=== PATIENT | female | born 1985 | race American Indian/Alaskan Native ===

== ENCOUNTER 2016-09-29 07:23 | Outpatient (CLI) | payer MEDICARE | END 2016-09-29 07:24 | disposition home or self-care (01) | DX: R30.0 Dysuria (principal) ==

== ENCOUNTER 2016-10-18 08:00 | Outpatient (CLI) | payer MEDICARE | END 2016-10-18 08:01 | disposition home or self-care (01) | DX: K21.9 Gastro-esophageal reflux disease without esophagitis (principal) ==

== ENCOUNTER 2016-11-23 10:27 | Outpatient (CLI) | payer MEDICARE | END 2016-11-23 10:28 | disposition home or self-care (01) | DX: Z11.3 Encounter for screening for infections with a predominantly sexual mode of transmission (principal) | CPT/HCPCS: 36415; 86780; 86803; 87491; 87591; G0475 ==

== ENCOUNTER 2017-02-15 13:15 | Outpatient (CLI) | payer MEDICARE | END 2017-02-15 13:16 | disposition home or self-care (01) | LOC: LAB.R 13:15 | PROVIDERS: ATTEND Physician Assistant | DX: N39.0 Urinary tract infection, site not specified (principal) | CPT/HCPCS: 87491; 87591 ==

== ENCOUNTER 2017-02-21 08:00 | Outpatient (CLI) | payer MEDICARE | END 2017-02-21 08:01 | disposition home or self-care (01) | LOC: LAB.R 08:00 | PROVIDERS: ATTEND Physician Assistant | DX: Z11.3 Encounter for screening for infections with a predominantly sexual mode of transmission (principal) | CPT/HCPCS: 87491; 87591 ==

== ENCOUNTER 2017-05-30 13:51 | Outpatient (CLI) | payer MEDICARE ==
[2017-05-30 19:08] LABS: BASOPHILS # (AUTO) 0.1 10^3/uL (0.0-0.1); BASOPHILS % (AUTO) 0.6 %; EOSINOPHILS # (AUTO) 0.1 10^3/uL (0.0-0.7); EOSINOPHILS % (AUTO) 0.7 %; HCT - HEMATOCRIT 42.6 % (37.0-47.0); HGB - HEMOGLOBIN 14.1 g/dL (12.0-16.0); LYMPHOCYTES % (AUTO) 22.6 %; MEAN CORPUSCULAR HEMOGLOBIN 29.2 pg (27.0-31.0); MEAN CORPUSCULAR HGB CONC 33.1 g/dL (32.0-36.0); MEAN CORPUSCULAR VOLUME 88.2 fL (81.0-99.0); MEAN PLATELET VOLUME 8.9 fL (7.9-10.8); MONOCYTES # (AUTO) 0.6 10^3/uL (0.0-1.0); MONOCYTES % (AUTO) 6.4 %; NEUTROPHILS # (AUTO) 6.2 10^3/uL (1.5-6.6); NEUTROPHILS % (AUTO) 69.7 %; RED BLOOD COUNT 4.84 10^6/uL (4.20-5.40); RED CELL DISTRIBUTION WIDTH 13.3 % (12.0-15.0)
[2017-05-30 19:18] LABS: ALBUMIN/GLOBULIN RATIO 1.6 (1.0-2.2); BILIRUBIN,TOTAL 0.7 mg/dL (0.2-1.0); BUN - BLOOD UREA NITROGEN 10 mg/dL (6-20); CALCIUM 9.2 mg/dL (8.5-10.3); CARBON DIOXIDE - CO2 28 mmol/L (21-32); CHLORIDE 101 mmol/L (101-111); CREATININE 0.5 mg/dL (0.4-1.0); GFR - MDRD 142 (>89); GLUCOSE 88 mg/dL (70-100); POTASSIUM 3.6 mmol/L (3.5-5.0); SODIUM 138 mmol/L (135-145); TOTAL PROTEIN 7.8 g/dL (6.7-8.2)
[2017-05-30 19:36] LABS: THYROID STIMULATING HORMONE 0.14 uIU/mL (0.34-5.60)
== END 2017-05-30 13:52 | disposition home or self-care (01) ==
LOC: LAB.N 13:51
PROVIDERS: ATTEND Nurse Practitioner Gerontology
DX: N91.2 Amenorrhea, unspecified (principal); L65.9 Nonscarring hair loss, unspecified
CPT/HCPCS: 36415; 80053; 84439; 84443; 85025

== ENCOUNTER 2017-07-11 10:35 | Outpatient (CLI) | payer MEDICARE | END 2017-07-11 10:36 | disposition home or self-care (01) | LOC: LAB.N 10:35 | PROVIDERS: ATTEND Nurse Practitioner Gerontology | DX: R94.6 Abnormal results of thyroid function studies (principal) | CPT/HCPCS: 36415; 84443 ==

== ENCOUNTER 2018-05-03 14:58 | Emergency (ER) | payer MEDICARE ==
[2018-05-03 15:13] VITALS: BP 137/79
[2018-05-03 15:27] LABS: BILIRUBIN,URINE NEGATIVE (NEGATIVE); GLUCOSE, URINE (UA) NEGATIVE (NEGATIVE); KETONES,URINE (UA) NEGATIVE (NEGATIVE); LEUKOCYTE ESTERASE, URINE MODERATE (NEGATIVE); NITRITE,URINE NEGATIVE (NEGATIVE); OCCULT BLOOD,URINE LARGE (NEGATIVE); PROTEIN,URINE NEGATIVE (NEGATIVE); UROBILINOGEN,URINE 0.2 (NORMAL) E.U./dL (NORMAL)
[2018-05-03 15:43] LABS: CLARITY,URINE HAZY (CLEAR); HCG UR QUAL NEGATIVE
[2018-05-03 15:44] LABS: BACTERIA,URINE Few /HPF (None Seen); SQUAMOUS EPITHELIAL CELL,UR FEW Squamous (<= Few)
--- NOTE | 2018-05-03 15:50 | ED Physician Documentation ---
PD HPI FEMALE - Stated complaint Stated Complaint: FEMALE - Chief complaint Chief Complaint: UTI - History obtained from History obtained from: Patient - History of Present Illness Timing - onset: How many days ago (3) Timing - duration: Days (3) Timing - details: Gradual onset Pain level max: 3 Pain level max: 3 Associated symptoms: Dysuria, Urinary frequency. No: Fever, Chest/shoulder pain, Abdominal pain, Back pain, Pelvic pain, Vaginal pain, Vaginal bleeding, Vaginal discharge Similar symptoms before: Diagnosis (UTI, states has frequent UTI's) Recently seen: Not recently seen Review of Systems Constitutional: denies: Fever, Chills Respiratory: denies: Cough GI: denies: Vomiting, Diarrhea : reports: Dysuria, Frequency, Hesitancy. denies: Now EGA PD PAST MEDICAL HISTORY - Past Medical History Past Medical History: No - Present Medications Home Medications: Ambulatory Orders Medication Instructions Recorded Confirmed Nitrofurantoin Monohyd/M-Cryst 100 mg PO BID #10 capsule 05/03/18 [Macrobid 100 mg Capsule] Phenazopyridine HCl [Pyridium] 200 mg PO TID PRN #6 tablet 05/03/18 - Allergies Allergies/Adverse Reactions: Allergies Allergy/AdvReac Type Severity Reaction Status Date / Time No Known Drug Allergies Allergy Verified 05/03/18 15:13 - Living Situation Living Situation: reports: With family Living Arrangement: reports: At home - Social History Does the pt have substance abuse?: No - Family History Family history: reports: Non contributory PD ED PE NORMAL - Vitals Vital signs reviewed: Yes - General General: Alert and oriented X 3, No acute distress - HEENT HEENT: Moist mucous membranes - Neck Neck: Supple, no meningeal sign - Cardiac Cardiac: RRR - Respiratory Respiratory: No respiratory distress, Clear bilaterally - Abdomen Abdomen: Soft, Non tender, Non distended - Female Female : Pt declined - Back Back: No CVA TTP, No spinal TTP - Derm Derm: Warm and dry - Neuro Neuro: Alert and oriented X 3 Results - Vitals Vitals: Vital Signs - 24 hr 05/03/18 15:10 Temperature 36.3 C L Heart Rate 84 Respiratory 18 Rate Blood Pressure 137/79 H O2 Saturation 98 Oxygen O2 Source Room air - Labs Labs: Laboratory Tests 05/03/18 15:15 Urine Color YELLOW Urine Clarity HAZY Urine pH 6.0 Ur Specific [place] <=1.005 Urine Protein NEGATIVE Urine Glucose (UA) NEGATIVE Urine Ketones NEGATIVE Urine Occult Blood LARGE H Urine Nitrite NEGATIVE Urine Bilirubin NEGATIVE Urine Urobilinogen 0.2 (NORMAL) Ur Leukocyte Esterase MODERATE H Urine RBC 11-25 H Urine WBC >25 H Ur Squamous Epith Cells FEW Squamous Urine Bacteria Few Ur Microscopic Review INDICATED Urine Culture Comments INDICATED Urine HCG, Qual NEGATIVE PD MEDICAL DECISION MAKING - ED course Complexity details: reviewed results, considered differential, d/w patient ED course: Patient is a 32-year-old female with what appears to be a UTI. Will place on Macrobid and Pyridium. She is well-appearing, nontoxic. Afebrile. She has been in a monogamous relationship for the past 3 years and was a week ago. We will have her follow-up with her doctor for further care. No vaginal bleeding, discharge or itching. Patient counseled regarding signs and symptoms for which I believe and urgent re-evaluation would be necessary. Patient with good understanding of and agreement to plan and is comfortable going home at this time This document was made in part using voice recognition software. While efforts are made to proofread this document, sound alike and grammatical errors may occur. - Sepsis Event Vital Signs: Vital Signs - 24 hr 05/03/18 15:10 Temperature 36.3 C L Heart Rate 84 Respiratory 18 Rate Blood Pressure 137/79 H O2 Saturation 98 Oxygen O2 Source Room air Departure - Departure Disposition: 01 Home, Self Care Clinical Impression: Urinary tract infection Qualifiers: Urinary tract infection type: acute cystitis Hematuria presence: without hematuria Qualified Code(s): N30.00 - Acute cystitis without hematuria Condition: Good Instructions: ED UTI Cystitis Female Follow-Up: Jazmine Slater ARNP [Primary Care Provider] - As Needed [facility] [Provider Group] Prescriptions: Nitrofurantoin Monohyd/M-Cryst [Macrobid 100 mg Capsule] 100 mg PO BID #10 capsule Phenazopyridine HCl [Pyridium] 200 mg PO TID PRN #6 tablet PRN Reason: dysuria Comments: Take all medications until gone. Return if you worsen. Follow-up with your doctor as needed
[2018-05-03] MEDS ORDERED: PHENAZOPYRIDINE 100 MG TABLET PO STA (16:02)
[2018-05-03] MEDS ORDERED: NITROFURANTOIN MACRO 100 MG CAPSULE PO STA (16:02)
== END 2018-05-03 16:20 | disposition home or self-care (01) ==
LOC: ED 14:58
DX: N30.00 Acute cystitis without hematuria (principal)
CPT/HCPCS: 81001; 81025; 87077; 87086; 87181; 99282; 99283; A9270; 81003

== ENCOUNTER 2018-08-16 08:34 | Emergency (ER) | payer MEDICARE ==
[2018-08-16 08:42] VITALS: BP 116/86
[2018-08-16 09:14] LABS: BILIRUBIN,URINE NEGATIVE (NEGATIVE); GLUCOSE, URINE (UA) NEGATIVE (NEGATIVE); KETONES,URINE (UA) NEGATIVE (NEGATIVE); LEUKOCYTE ESTERASE, URINE SMALL (NEGATIVE); NITRITE,URINE NEGATIVE (NEGATIVE); OCCULT BLOOD,URINE LARGE (NEGATIVE); PH,URINE 6.5 PH (5.0-7.5); PROTEIN,URINE NEGATIVE (NEGATIVE); UROBILINOGEN,URINE 0.2 (NORMAL) E.U./dL (NORMAL)
[2018-08-16 09:16] LABS: CLARITY,URINE HAZY (CLEAR)
[2018-08-16 09:17] LABS: HCG UR QUAL NEGATIVE
[2018-08-16 09:22] LABS: BACTERIA,URINE Few /HPF (None Seen); RBC,URINE TNTC /HPF (0-5); SQUAMOUS EPITHELIAL CELL,UR FEW Squamous (<= Few); WBC CLUMPS,URINE PRESENT
[2018-08-16] MEDS ORDERED: cephALEXin 250 MG CAPSULE PO STA (09:25)
[2018-08-16] MEDS ORDERED: PHENAZOPYRIDINE 100 MG TABLET PO STA (09:26)
--- NOTE | 2018-08-16 09:28 | ED Physician Documentation ---
PD HPI FEMALE - Stated complaint Stated Complaint: FEMALE - Chief complaint Chief Complaint: UTI - History obtained from History obtained from: Patient - History of Present Illness Timing - onset: Today Timing - details: Abrupt onset Severity Comments: moderate Associated symptoms: Dysuria, Urinary frequency. No: Fever, Chest/shoulder pain, Abdominal pain, Pelvic pain, Vaginal pain, Vaginal bleeding, Vaginal discharge, Genital sore/lesion, Hematuria Contributing factors: No: Similar symptoms before: No diagnosis Recently seen: Not recently seen Review of Systems Constitutional: denies: Fever, Chills Eyes: denies: Discharge Ears: denies: Ear pain Cardiac: denies: Chest pain / pressure Respiratory: denies: Cough GI: denies: Abdominal Pain : reports: Dysuria Neurologic: denies: Head injury PD PAST MEDICAL HISTORY - Past Surgical History Past Surgical History: No - Present Medications Home Medications: Ambulatory Orders Medication Instructions Recorded Confirmed Cephalexin [Keflex] 500 mg PO BID #10 capsule 08/16/18 - Allergies Allergies/Adverse Reactions: Allergies Allergy/AdvReac Type Severity Reaction Status Date / Time No Known Drug Allergies Allergy Verified 08/16/18 08:42 - Social History Does the pt smoke?: No Smoking Status: Never smoker Does the pt drink ETOH?: No Does the pt have substance abuse?: No PD ED PE NORMAL - General General: Alert and oriented X 3, No acute distress - HEENT HEENT: Atraumatic, PERRL, EOMI, Ears normal - Cardiac Cardiac: RRR, Strong equal pulses - Respiratory Respiratory: No respiratory distress - Abdomen Abdomen: Soft, Non tender, Non distended - Derm Derm: Normal color - Extremities Extremities: No deformity - Neuro Neuro: Alert and oriented X 3, Normal speech - Psych Psych: Normal affect Results - Vitals Vitals: Vital Signs - 24 hr 08/16/18 08:41 Temperature 36.2 C L Heart Rate 82 Respiratory 20 Rate Blood Pressure 116/86 H O2 Saturation 99 Oxygen O2 Source Room air - Labs Labs: Laboratory Tests 08/16/18 08:50 Urine Color LT RED Urine Clarity HAZY Urine pH 6.5 Ur Specific [place] 1.010 Urine Protein NEGATIVE Urine Glucose (UA) NEGATIVE Urine Ketones NEGATIVE Urine Occult Blood LARGE H Urine Nitrite NEGATIVE Urine Bilirubin NEGATIVE Urine Urobilinogen 0.2 (NORMAL) Ur Leukocyte Esterase SMALL H Urine RBC TNTC H Urine WBC >25 H Urine WBC Clumps PRESENT Ur Squamous Epith Cells FEW Squamous Urine Bacteria Few Ur Microscopic Review INDICATED Urine Culture Comments INDICATED Urine HCG, Qual NEGATIVE PD MEDICAL DECISION MAKING - ED course ED course: The patient appears to have a simple cystitis and appears appropriate for discharge and ongoing outpatient management. I discussed with the patient the findings and plan she understands and agrees. The patient will return to the emergency department for any worsening or any concerns Departure - Departure Disposition: 01 Home, Self Care Clinical Impression: Cystitis Instructions: ED UTI Cystitis Female Follow-Up: Jazmine Slater ARNP [Primary Care Provider] - Within 1 week Prescriptions: Cephalexin [Keflex] 500 mg PO BID #10 capsule Comments: Please return for any worsening or any concerns
== END 2018-08-16 09:40 | disposition home or self-care (01) ==
LOC: ED 08:34
DX: N30.90 Cystitis, unspecified without hematuria (principal)
CPT/HCPCS: 81001; 81025; 87086; 99283; A9270; 81003

== ENCOUNTER 2018-08-26 02:23 | Emergency (ER) | payer MEDICARE ==
--- NOTE | 2018-08-26 02:51 | ED Physician Documentation ---
PD HPI FEMALE - Stated complaint Stated Complaint: CYSTITIS - Chief complaint Chief Complaint: Abd Pain - History obtained from History obtained from: Patient - History of Present Illness Timing - onset: How many weeks ago (1) Timing - duration: Weeks (1) Pain level max: 5 Pain level max: 5 Associated symptoms: Vaginal pain, Vaginal discharge, Dysuria. No: Fever, Chest/shoulder pain, Abdominal pain, Back pain, Urinary frequency, Hematuria Contributing factors: Sexually active. No: , Exposed to STD Similar symptoms before: Diagnosis (UTI) Recently seen: Emergency Dept - Additional information Additional information: Patient seen here recently and diagnosed with a UTI, states she does not feel like she is improved. Was placed on Keflex. She is with no change in sexual partners. She states that she has had milky discharge from her vagina. Review of Systems Constitutional: denies: Fever Nose: denies: Rhinorrhea / runny nose, Congestion Cardiac: denies: Chest pain / pressure Respiratory: denies: Cough GI: denies: Abdominal Pain, Nausea, Vomiting, Diarrhea : denies: Dysuria, Frequency, Hesitancy Skin: denies: Rash Musculoskeletal: denies: Neck pain, Back pain Neurologic: denies: Focal weakness, Numbness, Headache PD PAST MEDICAL HISTORY - Past Medical History Past Medical History: No - Past Surgical History Past Surgical History: No - Present Medications Home Medications: Ambulatory Orders Medication Instructions Recorded Confirmed Cephalexin [Keflex] 500 mg PO BID #10 capsule 08/16/18 - Allergies Allergies/Adverse Reactions: Allergies Allergy/AdvReac Type Severity Reaction Status Date / Time No Known Drug Allergies Allergy Verified 08/26/18 02:31 - Living Situation Living Situation: reports: With family Living Arrangement: reports: At home - Social History Does the pt smoke?: No Smoking Status: Never smoker Does the pt drink ETOH?: No Does the pt have substance abuse?: No PD ED PE NORMAL - Vitals Vital signs reviewed: Yes - General General: Alert and oriented X 3, No acute distress - HEENT HEENT: Moist mucous membranes - Neck Neck: Supple, no meningeal sign - Cardiac Cardiac: RRR - Respiratory Respiratory: No respiratory distress, Clear bilaterally - Abdomen Abdomen: Soft, Non tender, Non distended - Female Female : Other (clear discharge from the cervix. mild CMT. ) - Back Back: No spinal TTP - Derm Derm: Warm and dry - Neuro Neuro: Alert and oriented X 3 Results - Vitals Vitals: Vital Signs - 24 hr 08/26/18 08/26/18 02:26 04:23 Temperature 36.3 C L 36.2 C L Heart Rate 80 76 Respiratory 18 14 Rate Blood Pressure 127/77 105/74 O2 Saturation 100 100 Oxygen O2 Source Room air - Labs Labs: Microbiology 08/26/18 02:57 Wet Prep - Final Genital - Cervix 08/26/18 02:57 ELIANE Preparation - Final Fluid - Cervix Laboratory Tests 08/26/18 02:48 Urine Color YELLOW Urine Clarity CLEAR Urine pH 6.0 Ur Specific [place] <=1.005 Urine Protein NEGATIVE Urine Glucose (UA) NEGATIVE Urine Ketones NEGATIVE Urine Occult Blood TRACE-INTA Urine Nitrite NEGATIVE Urine Bilirubin NEGATIVE Urine Urobilinogen 0.2 (NORMAL) Ur Leukocyte Esterase NEGATIVE Ur Microscopic Review NOT INDICATED Urine Culture Comments NOT INDICATED Urine HCG, Qual NEGATIVE PD MEDICAL DECISION MAKING - ED course Complexity details: reviewed old records, reviewed results, re-evaluated patient, considered differential, d/w patient, d/w family ED course: No acute findings on testing of the urine or wet mount or ELIANE prep. Gonorrhea and Chlamydia testing were sent as well. Unclear etiology of her symptoms. Possible interstitial cystitis? Will have her follow-up with her doctor for further care. Patient counseled regarding signs and symptoms for which I believe and urgent re-evaluation would be necessary. Patient with good understanding of and agreement to plan and is comfortable going home at this time This document was made in part using voice recognition software. While efforts are made to proofread this document, sound alike and grammatical errors may occur. Departure - Departure Disposition: 01 Home, Self Care Clinical Impression: Dysuria Condition: Good Instructions: ED Dysuria Uncertain Cause Follow-Up: your,doctor in 1 week [Other] Comments: Return if you worsen. The cause of your symptoms is unclear today. Your testing is normal. There are tests that are still pending and you can follow-up with these with your doctor. If they are positive we will call you. Discharge Date/Time: 08/26/18 04:24
[2018-08-26 03:04] LABS: BILIRUBIN,URINE NEGATIVE (NEGATIVE); GLUCOSE, URINE (UA) NEGATIVE (NEGATIVE); KETONES,URINE (UA) NEGATIVE (NEGATIVE); LEUKOCYTE ESTERASE, URINE NEGATIVE (NEGATIVE); NITRITE,URINE NEGATIVE (NEGATIVE); OCCULT BLOOD,URINE TRACE-INTA (NEGATIVE); PROTEIN,URINE NEGATIVE (NEGATIVE); UROBILINOGEN,URINE 0.2 (NORMAL) E.U./dL (NORMAL)
[2018-08-26 03:05] LABS: CLARITY,URINE CLEAR (CLEAR)
[2018-08-26 03:15] LABS: HCG UR QUAL NEGATIVE
[2018-08-26 04:24] VITALS: BP 105/74
== END 2018-08-26 04:24 | disposition home or self-care (01) ==
LOC: ED 02:23
DX: R30.0 Dysuria (principal)
CPT/HCPCS: 81001; 81003; 81025; 87086; 87210; 87220; 87491; 87591; 99282; 99283

== ENCOUNTER 2018-11-09 07:27 | Emergency (ER) | payer MEDICARE ==
--- NOTE | 2018-11-09 08:09 | ED Physician Documentation ---
PD HPI FEMALE - Stated complaint Stated Complaint: FEMALE - Chief complaint Chief Complaint: General - History obtained from History obtained from: Patient - History of Present Illness Timing - onset: Today Timing - details: Still present Associated symptoms: Dysuria, Urinary frequency Similar symptoms before: No diagnosis - Additional information Additional information: The patient is a 33-year-old female who presents with dysuria and frequency of urination that started this morning. She denies fever, abdominal pain, nausea or vomiting, or back pain. Her last menstrual period was 1 week ago. She has a history of similar symptoms intermittently in the past, but has not been diagnosed. She is concerned that her sexual partner may be the cause for her current symptoms. 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 - Past Surgical History Past Surgical History: No - Present Medications Home Medications: Ambulatory Orders Medication Instructions Recorded Confirmed Nitrofurantoin Monohyd/M-Cryst 100 mg PO BID #10 capsule 11/09/18 [Macrobid 100 mg Capsule] Phenazopyridine HCl [Pyridium] 200 mg PO TID PRN #6 tablet 11/09/18 - Allergies Allergies/Adverse Reactions: Allergies Allergy/AdvReac Type Severity Reaction Status Date / Time No Known Drug Allergies Allergy Verified 11/09/18 07:50 - Social History Does the pt smoke?: No Smoking Status: Never smoker Does the pt drink ETOH?: No Does the pt have substance abuse?: No - Immunizations Immunizations are current?: No PD ED PE NORMAL - Vitals Vital signs reviewed: Yes (normal) - General General: Alert and oriented X 3, Well developed/nourished - HEENT HEENT: Atraumatic, Pharynx benign - Neck Neck: No adenopathy, No JVD - Cardiac Cardiac: RRR, No murmur - Respiratory Respiratory: No respiratory distress, Clear bilaterally - Abdomen Abdomen: Normal bowel sounds, Soft, Non tender - Back Back: No CVA TTP - Derm Derm: No rash - Extremities Extremities: No edema, No calf tenderness / cord - Neuro Neuro: Alert and oriented X 3, No motor deficit, No sensory deficit Results - Vitals Vitals: Vital Signs - 24 hr 11/09/18 07:42 Temperature 36.1 C L Heart Rate 79 Respiratory 16 Rate Blood Pressure 120/91 H O2 Saturation 100 Oxygen O2 Source Room air - Labs Labs: Laboratory Tests 11/09/18 08:06 Urine Color YELLOW Urine Clarity HAZY Urine pH 7.0 Ur Specific [place] <=1.005 Urine Protein NEGATIVE Urine Glucose (UA) NEGATIVE Urine Ketones NEGATIVE Urine Occult Blood LARGE H Urine Nitrite NEGATIVE Urine Bilirubin NEGATIVE Urine Urobilinogen 0.2 (NORMAL) Ur Leukocyte Esterase MODERATE H Urine RBC 6-10 H Urine WBC 11-25 H Ur Squamous Epith Cells RARE Squamous Urine Bacteria Few Ur Microscopic Review INDICATED Urine Culture Comments INDICATED Urine HCG, Qual NEGATIVE PD MEDICAL DECISION MAKING - ED course Complexity details: reviewed results, re-evaluated patient, considered differential, d/w patient ED course: The patient's presentation is most consistent with urinary tract infection. Her presentation does not suggest pyelonephritis nor sepsis. Treatment in the emergency department included administration of Macrobid 100 mg orally and Pyridium 200 mg orally. She is being discharged with prescriptions for both. I discussed with her the expected course of illness, antibiotic treatment and outpatient follow-up, as well as potentially worrisome signs or symptoms that should prompt reevaluation in the emergency department. Departure - Departure Disposition: 01 Home, Self Care Clinical Impression: Urinary tract infection Condition: Stable Instructions: ED UTI Cystitis Female Follow-Up: Jazmine Slater ARNP [Credentialed Staff Provider] - Prescriptions: Nitrofurantoin Monohyd/M-Cryst [Macrobid 100 mg Capsule] 100 mg PO BID #10 capsule Phenazopyridine HCl [Pyridium] 200 mg PO TID PRN #6 tablet PRN Reason: dysuria Comments: Drink plenty of fluids, including cranberry juice. Take Macrobid twice daily as prescribed. You can use Pyridium as prescribed if needed for painful urination. You can use Tylenol or ibuprofen as needed for fever or discomfort. Follow up with your primary physician within 2 weeks. Call to schedule appointment. Return to the emergency department if you develop increasing abdominal pain, fever with shaking chills, persistent vomiting, or otherwise worsening symptoms.
[2018-11-09 08:16] LABS: BILIRUBIN,URINE NEGATIVE (NEGATIVE); GLUCOSE, URINE (UA) NEGATIVE (NEGATIVE); KETONES,URINE (UA) NEGATIVE (NEGATIVE); LEUKOCYTE ESTERASE, URINE MODERATE (NEGATIVE); NITRITE,URINE NEGATIVE (NEGATIVE); OCCULT BLOOD,URINE LARGE (NEGATIVE); PROTEIN,URINE NEGATIVE (NEGATIVE); UROBILINOGEN,URINE 0.2 (NORMAL) E.U./dL (NORMAL)
[2018-11-09 08:17] LABS: CLARITY,URINE HAZY (CLEAR); HCG UR QUAL NEGATIVE
[2018-11-09 08:25] LABS: BACTERIA,URINE Few /HPF (None Seen); SQUAMOUS EPITHELIAL CELL,UR RARE Squamous (<= Few)
[2018-11-09] MEDS ORDERED: NITROFURANTOIN MACRO 100 MG CAPSULE PO STA (08:42)
[2018-11-09] MEDS ORDERED: PHENAZOPYRIDINE 100 MG TABLET PO STA (08:42)
[2018-11-09 09:46] VITALS: BP 122/87
== END 2018-11-09 09:44 | disposition home or self-care (01) ==
LOC: ED 07:27
DX: N39.0 Urinary tract infection, site not specified (principal)
CPT/HCPCS: 81001; 81025; 87086; 87181; 99283; A9270; 81003

== ENCOUNTER 2018-11-22 17:07 | Outpatient (CLI) | payer MEDICARE | END 2018-11-22 23:59 | disposition home or self-care (01) | LOC: LAB.R 17:07 | PROVIDERS: ATTEND Family Medicine | DX: N39.0 Urinary tract infection, site not specified (principal) | CPT/HCPCS: 87086 ==

== ENCOUNTER 2018-11-28 08:00 | Outpatient (CLI) | payer MEDICAID, MEDICARE | END 2018-11-28 23:59 | disposition home or self-care (01) | LOC: LAB.R 08:00 | PROVIDERS: ATTEND Registered Nurse | DX: R30.0 Dysuria (principal); T76.51XA Adult forced sexual exploitation, suspected, initial encounter; N39.0 Urinary tract infection, site not specified | CPT/HCPCS: 87086; 87480; 87491; 87510; 87591; 87660 ==

== ENCOUNTER 2018-11-28 13:11 | Outpatient (CLI) | payer MEDICAID, MEDICARE ==
[2018-11-29 12:46] LABS: HEPATITIS B SURFACE ANTIGEN NON-REACTIVE (NON-REACTIVE)
[2018-11-29 13:56] LABS: HIV AG/AB 4TH GEN NON-REACTIVE (NON-REACTIVE)
[2018-11-30 14:42] LABS: HEPATITIS C ANTIBODY NON-REACTIVE (NON-REACTIVE); HSV 2 IGG TYPE SPECIFIC AB <0.90 index
== END 2018-11-28 13:12 | disposition home or self-care (01) ==
LOC: LAB 13:11
PROVIDERS: ATTEND Registered Nurse
DX: R30.0 Dysuria (principal); T76.51XA Adult forced sexual exploitation, suspected, initial encounter
CPT/HCPCS: 36415; 81599; 86592; 86695; 86696; 86803; 87340; G0475; 87389

== ENCOUNTER 2018-12-03 19:46 | Outpatient (CLI) | payer MEDICAID, MEDICARE ==
--- NOTE | 2018-12-04 02:10 | Ultrasound Report ---
Reason: PELVIC PAIN Procedure Date: 12/03/2018 Accession Number: [id number] / [id number] Procedure: US - Pelvic w/Transvaginal CPT Code: FULL RESULT: EXAM: PELVIC ULTRASOUND EXAM DATE: 12/03/2018 08:30 PM. CLINICAL HISTORY: Pelvic pain COMPARISON: None. TECHNIQUE: Realtime transabdominal pelvic scan performed to identify the uterus and adnexa and as an overview of other pelvic structures, followed by transvaginal scan to provide greater detail of the uterus and adnexa, with static image documentation. FINDINGS: Uterus: 8.2 x 5.5 x 3.3 cm, volume 77 cc. Anteverted position. Normal overall size and echotexture. Masses: Anterior intramural leiomyoma, measuring 2.6 x 2.4 x 1.6 cm. Endometrium: 5 mm. Normal. Cervix: Unremarkable. Right Ovary: 3.7 x 3.4 x 2.2 cm, volume 15 cc. Normal echotexture and blood flow. Left Ovary: 3.0 x 3.0 x 2.2 cm, volume 12 cc. Normal echotexture and blood flow. Free Fluid: None. Other: None. IMPRESSION: Anterior intramural leiomyoma. Otherwise, normal pelvic ultrasound. RADIA
== END 2018-12-03 19:47 | disposition home or self-care (01) ==
LOC: DI 19:46
PROVIDERS: ATTEND Registered Nurse
DX: D25.1 Intramural leiomyoma of uterus (principal)
CPT/HCPCS: 76830; 76856

== ENCOUNTER 2019-01-10 16:12 | Outpatient (CLI) | payer MEDICARE | END 2019-01-10 23:59 | disposition home or self-care (01) | LOC: LAB.R 16:12 | PROVIDERS: ATTEND Physician Assistant Medical | DX: N39.0 Urinary tract infection, site not specified (principal) | CPT/HCPCS: 87086 ==

== ENCOUNTER 2019-02-12 08:02 | Emergency (ER) | payer MEDICARE ==
[2019-02-12 08:15] VITALS: BP 124/86
--- NOTE | 2019-02-12 08:29 | ED Physician Documentation ---
PD HPI FEMALE - Stated complaint Stated Complaint: FEMALE - Chief complaint Chief Complaint: UTI - History obtained from History obtained from: Patient - History of Present Illness Timing - onset: How many days ago (2) Timing - duration: Days (2) Timing - details: Still present Associated symptoms: Dysuria, Urinary frequency Similar symptoms before: Diagnosis (Recurrent UTI's) - Treatment prior to arrival Treatment prior to arrival: pyridium - Additional information Additional information: The patient is a 33-year-old female who presents with dysuria and frequency of urination that has progressed over the past 2 days. She denies fever, nausea or vomiting, or lower back pain. She started taking Pyridium yesterday. Her last menstrual period was 2 weeks ago. She has history of similar symptoms with UTIs, the last time being about 3 months ago. 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 - Past Surgical History Past Surgical History: No - Present Medications Home Medications: Ambulatory Orders Medication Instructions Recorded Confirmed Nitrofurantoin Monohyd/M-Cryst 100 mg PO BID #10 capsule 02/12/19 [Macrobid 100 mg Capsule] Phenazopyridine HCl [Pyridium] 200 mg PO TID PRN #6 tablet 02/12/19 - Allergies Allergies/Adverse Reactions: Allergies Allergy/AdvReac Type Severity Reaction Status Date / Time No Known Drug Allergies Allergy Verified 02/12/19 08:15 - Social History Does the pt smoke?: No Smoking Status: Never smoker Does the pt drink ETOH?: No Does the pt have substance abuse?: No - Immunizations Immunizations are current?: No PD ED PE NORMAL - Vitals Vital signs reviewed: Yes (normal) - General General: Alert and oriented X 3, Well developed/nourished - HEENT HEENT: Atraumatic, Pharynx benign - Neck Neck: No adenopathy, No JVD - Cardiac Cardiac: RRR - Respiratory Respiratory: No respiratory distress, Clear bilaterally - Abdomen Abdomen: Normal bowel sounds, Soft, Non tender - Back Back: No CVA TTP - Derm Derm: No rash - Extremities Extremities: No edema, No calf tenderness / cord - Neuro Neuro: Alert and oriented X 3, No motor deficit, Normal speech Results - Vitals Vitals: Vital Signs - 24 hr 02/12/19 08:13 Temperature 36.0 C L Heart Rate 78 Respiratory 18 Rate Blood Pressure 124/86 H O2 Saturation 100 Oxygen O2 Source Room air - Labs Labs: Laboratory Tests 02/12/19 08:20 Urine Color ORANGE Urine Clarity HAZY Urine pH Ur Specific [place] Urine Protein Urine Glucose (UA) Urine Ketones Urine Occult Blood Urine Nitrite Urine Bilirubin COLOR INTERFERENCE Urine Urobilinogen Ur Leukocyte Esterase Urine RBC 0-5 Urine WBC >25 H Urine WBC Clumps PRESENT Ur Squamous Epith Cells FEW Squamous Urine Bacteria Many H Ur Microscopic Review INDICATED Urine Culture Comments INDICATED PD MEDICAL DECISION MAKING - ED course Complexity details: reviewed old records, reviewed results, re-evaluated patient, considered differential, d/w patient ED course: Patient's presentation is most consistent with acute urinary tract infection. Her presentation does not suggest pyelonephritis nor sepsis. Treatment in the emergency department included administration of Macrobid 100 mg orally. She is being discharged with prescriptions for Macrobid and for Pyridium. I discussed with her the expected course of illness, antibiotic treatment and outpatient follow-up, as well as potentially worrisome signs or symptoms that should prompt reevaluation in the emergency department. Departure - Departure Disposition: 01 Home, Self Care Clinical Impression: Urinary tract infection Qualifiers: Urinary tract infection type: acute cystitis Hematuria presence: with hematuria Qualified Code(s): N30.01 - Acute cystitis with hematuria Condition: Stable Instructions: ED UTI Cystitis Female Follow-Up: Jazmine Slater ARNP [Primary Care Provider] - Prescriptions: Nitrofurantoin Monohyd/M-Cryst [Macrobid 100 mg Capsule] 100 mg PO BID #10 capsule Phenazopyridine HCl [Pyridium] 200 mg PO TID PRN #6 tablet PRN Reason: dysuria Comments: Drink plenty of fluids, including cranberry juice. Take Macrobid twice daily as prescribed. You can use Pyridium as prescribed if needed for painful urination. You can use Tylenol or ibuprofen as needed for fever or discomfort. Follow up with your primary physician within 2 weeks. Call to schedule appointment. Return to the emergency department if you develop increasing abdominal pain, fever with shaking chills, persistent vomiting, or otherwise worsening symptoms.
[2019-02-12 08:32] LABS: CLARITY,URINE HAZY (CLEAR)
[2019-02-12 08:33] LABS: BILIRUBIN,URINE COLOR INTERFERENCE (NEGATIVE)
[2019-02-12 08:45] LABS: BACTERIA,URINE Many /HPF (None Seen); RBC,URINE 0-5 /HPF (0-5); SQUAMOUS EPITHELIAL CELL,UR FEW Squamous (<= Few); WBC CLUMPS,URINE PRESENT
[2019-02-12] MEDS ORDERED: NITROFURANTOIN MACRO 100 MG CAPSULE PO STA (08:50)
== END 2019-02-12 09:16 | disposition home or self-care (01) ==
LOC: ED 08:02
DX: N30.01 Acute cystitis with hematuria (principal)
CPT/HCPCS: 81001; 87086; 99283; 99284; A9270; 81003

== ENCOUNTER 2019-02-27 | Emergency (ER) | payer MEDICARE | END 2019-02-27 15:34 | disposition home or self-care (01) | DX: N76.0 Acute vaginitis (principal); R30.0 Dysuria | CPT/HCPCS: 81001; 81025; 87086; 87210; 87481; 87491; 87591; 87661; 87801; 99283; A9270; 81003 ==

== ENCOUNTER 2019-04-28 16:30 | Emergency (ER) | payer MEDICAID, MEDICARE ==
[2019-04-28 16:39] VITALS: BP 118/83
--- NOTE | 2019-04-28 16:40 | ED Physician Documentation ---
PD HPI FEMALE - Stated complaint Stated Complaint: FEM - Chief complaint Chief Complaint: UTI - History obtained from History obtained from: Patient - History of Present Illness Timing - onset: Today Timing - duration: Days (1) Timing - details: Abrupt onset, Still present Associated symptoms: Vaginal bleeding (strated period), Dysuria, Urinary frequency. 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 : Other (frequent UTIs) - Past Surgical History Past Surgical History: No - Present Medications Home Medications: Ambulatory Orders Medication Instructions Recorded Confirmed Metronidazole [Flagyl] 500 mg PO BID #14 tablet 04/28/19 Naproxen 375 mg PO BID #20 tablet 04/28/19 Phenazopyridine HCl [Pyridium] 100 mg PO TID PRN #15 tablet 04/28/19 Tramadol HCl 50 mg PO Q6H PRN #12 tablet 04/28/19 - Allergies Allergies/Adverse Reactions: Allergies Allergy/AdvReac Type Severity Reaction Status Date / Time No Known Drug Allergies Allergy Verified 04/28/19 16:39 - Social History Does the pt smoke?: No Smoking Status: Never smoker Does the pt drink ETOH?: No Does the pt have substance abuse?: No - Immunizations Immunizations are current?: No - POLST Patient has POLST: No PD ED PE NORMAL - Vitals Vital signs reviewed: Yes - General General: Alert and oriented X 3, No acute distress, Well developed/nourished - Abdomen Abdomen: Soft, Non tender - Back Back: No CVA TTP - Derm Derm: Normal color, Warm and dry - Neuro Neuro: Alert and oriented X 3, No motor deficit, Normal speech Results - Vitals Vitals: Vital Signs - 24 hr 04/28/19 16:36 Temperature 36.0 C L Heart Rate 55 L Respiratory 16 Rate Blood Pressure 118/83 H O2 Saturation 100 Oxygen O2 Source Room air - Labs Labs: Laboratory Tests 04/28/19 16:40 Urine Color ORANGE Urine Clarity CLOUDY Urine pH Ur Specific [place] Urine Protein Urine Glucose (UA) Urine Ketones Urine Occult Blood Urine Nitrite Urine Bilirubin Urine Urobilinogen Ur Leukocyte Esterase Urine RBC TNTC H Urine WBC >25 H Ur Squamous Epith Cells FEW Squamous Urine Bacteria Many H Ur Microscopic Review INDICATED Urine Culture Comments INDICATED Urine HCG, Qual Cancelled PD MEDICAL DECISION MAKING - ED course Complexity details: considered differential (had had BV in January without treatment (rx Doxy for possible chlamydia but that test negative). Has dysuria again with current UA possibly positive. Will treat with Flagyl and then may need other abx based on urine culture. ), d/w patient Departure - Departure Disposition: Home, Self Care Clinical Impression: Dysuria, Cystitis Condition: Stable Record reviewed to determine appropriate education?: Yes Instructions: ED UTI Cystitis Female Follow-Up: Jazmine Slater ARNP [Primary Care Provider] - Prescriptions: Metronidazole [Flagyl] 500 mg PO BID #14 tablet Naproxen 375 mg PO BID #20 tablet Phenazopyridine HCl [Pyridium] 100 mg PO TID PRN #15 tablet PRN Reason: Abdominal Pain Tramadol HCl 50 mg PO Q6H PRN #12 tablet PRN Reason: Pain Comments: There does look to be likely bladder infection based on your urine test. The culture results in 2 to 3 days to confirm. We will treat with antibiotic for that. There could potentially be some bacterial vaginosis as well similar to when you had in January. Antibiotic hopefully will cover that as well. Continue phenazopyridine if needed for urinary discomfort. Add naproxen anti- inflammatory for pain and to that add Tylenol or tramadol if needed for pain. Recheck if not improving over the next several days. Discharge Date/Time: 04/28/19 17:42
[2019-04-28 17:10] LABS: CLARITY,URINE CLOUDY (CLEAR)
[2019-04-28 17:13] LABS: BACTERIA,URINE Many /HPF (None Seen); RBC,URINE TNTC /HPF (0-5); SQUAMOUS EPITHELIAL CELL,UR FEW Squamous (<= Few)
[2019-04-28] MEDS ORDERED: cephALEXin 250 MG CAPSULE PO STA (17:14)
[2019-04-28] MEDS ORDERED: traMADol 50 MG TABLET PO STA (17:14)
[2019-04-28] MEDS ORDERED: NAPROXEN 250 MG TABLET PO STA (17:14)
[2019-04-28] MEDS ORDERED: metroNIDAZOLE 250 MG TABLET PO STA (17:22)
== END 2019-04-28 17:42 | disposition home or self-care (01) ==
LOC: ED 16:30
DX: N30.90 Cystitis, unspecified without hematuria (principal); R30.0 Dysuria
CPT/HCPCS: 81001; 87086; 87181; 99283; A9270; 81003; 81025

== ENCOUNTER 2019-08-25 19:10 | Emergency (ER) | payer MEDICARE ==
--- NOTE | 2019-08-25 19:12 | ED Physician Documentation ---
History of Present Illness - Stated complaint Stated Complaint: FEMALE - Chief complaint Chief Complaint: Abd Pain - History obtained from History obtained from: Patient (the patient is a very pleasant 34 y/o f who takes daily prophylactic nitrofurantoin for recurrent UTIs, she ran out of her macrobid recently and is unable to get her prescription filled until tomorrow. she reports dysuria and frequency. the patient has also been taking phenazopyridine for her symptoms.) Review of Systems Constitutional: reports: Reviewed and negative Eyes: reports: Reviewed and negative Ears: reports: Reviewed and negative Nose: reports: Reviewed and negative Throat: reports: Reviewed and negative Cardiac: reports: Reviewed and negative Respiratory: reports: Reviewed and negative GI: reports: Reviewed and negative : reports: Dysuria, Frequency. 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 : Other (frequent UTIs) Psych: Depression, Anxiety - Past Surgical History Past Surgical History: No - Present Medications Home Medications: Ambulatory Orders Medication Instructions Recorded Confirmed Nitrofurantoin [Macrobid] 100 mg PO DAILY PRN 08/25/19 08/25/19 - Allergies Allergies/Adverse Reactions: Allergies Allergy/AdvReac Type Severity Reaction Status Date / Time No Known Drug Allergies Allergy Verified 08/25/19 19:17 - Social History Does the pt smoke?: No Smoking Status: Never smoker Does the pt drink ETOH?: No Does the pt have substance abuse?: No - Immunizations Immunizations are current?: No - POLST Patient has POLST: No PD ED PE NORMAL - Vitals Vital signs reviewed: Yes - General General: Alert and oriented X 3, No acute distress - HEENT HEENT: PERRL - Neck Neck: Supple, no meningeal sign - Cardiac Cardiac: RRR, No murmur - Respiratory Respiratory: Clear bilaterally - Abdomen Abdomen: Normal bowel sounds, Soft, Non tender, Non distended - Female Female : Deferred, Other (suprapubic tenderness to palpation) - Derm Derm: Warm and dry - Extremities Extremities: No deformity - Neuro Neuro: Alert and oriented X 3 - Psych Psych: Normal mood, Normal affect Results - Vitals Vitals: Vital Signs - 24 hr 08/25/19 19:13 Temperature 37 C Heart Rate 86 Respiratory 18 Rate Blood Pressure 126/78 O2 Saturation 99 Oxygen O2 Source Room air - Labs Labs: Laboratory Tests 08/25/19 08/25/19 19:24 19:24 Urine Color ORANGE Urine Clarity INTERFERENCES Urine pH 5.5 Ur Specific [place] <=1.005 <=1.005 Urine Protein NEGATIVE Urine Glucose (UA) Urine Ketones NEGATIVE Urine Occult Blood Urine Nitrite Urine Bilirubin NEGATIVE Urine Urobilinogen Ur Leukocyte Esterase Ur Microscopic Review INDICATED Urine Culture Comments Not Reportable Urine HCG, Qual NEGATIVE PD MEDICAL DECISION MAKING - ED course Complexity details: other (UA is equivocal given the fact that patient has been taking phenazopyridine. ) Departure - Departure Disposition: 01 Home, Self Care Clinical Impression: UTI (urinary tract infection) Qualifiers: Urinary tract infection type: acute cystitis Hematuria presence: without hematuria Qualified Code(s): N30.00 - Acute cystitis without hematuria Condition: Good Instructions: ED UTI Cystitis Female Follow-Up: Jazmine Slater ARNP [Primary Care Provider] - Tomorrow
[2019-08-25 19:18] VITALS: BP 126/78
[2019-08-25] MEDS ORDERED: LIDOCAINE 1% 2 ML VIAL MC ONE (19:29)
[2019-08-25] MEDS ORDERED: cefTRIAXone 1 GM VIAL IM STA (19:29)
[2019-08-25] MEDS ORDERED: NITROFURANTOIN MACRO 100 MG CAPSULE PO STA (19:30)
[2019-08-25 19:38] LABS: BILIRUBIN,URINE NEGATIVE (NEGATIVE); KETONES,URINE (UA) NEGATIVE (NEGATIVE); PH,URINE 5.5 PH (5.0-7.5); PROTEIN,URINE NEGATIVE (NEGATIVE)
[2019-08-25 19:39] LABS: CLARITY,URINE INTERFERENCES (CLEAR)
[2019-08-25 19:40] LABS: HCG UR QUAL NEGATIVE
[2019-08-25 20:02] LABS: BACTERIA,URINE None Seen /HPF (None Seen); RBC,URINE 0-5 /HPF (0-5); SQUAMOUS EPITHELIAL CELL,UR RARE Squamous (<= Few); WBC CLUMPS,URINE PRESENT
== END 2019-08-25 20:07 | disposition home or self-care (01) ==
LOC: ED 19:10
DX: N30.00 Acute cystitis without hematuria (principal)
CPT/HCPCS: 81001; 81025; 87086; 96372; 99283; A9270; 81003

== ENCOUNTER 2019-10-20 13:05 | Emergency (ER) | payer MEDICAID, MEDICARE ==
[2019-10-20] MEDS ORDERED: IBUPROFEN 600 MG TABLET PO STA (13:37)
[2019-10-20 13:40] LABS: BILIRUBIN,URINE NEGATIVE (NEGATIVE); GLUCOSE, URINE (UA) NEGATIVE (NEGATIVE); KETONES,URINE (UA) NEGATIVE (NEGATIVE); LEUKOCYTE ESTERASE, URINE MODERATE (NEGATIVE); NITRITE,URINE NEGATIVE (NEGATIVE); OCCULT BLOOD,URINE MODERATE (NEGATIVE); PROTEIN,URINE NEGATIVE (NEGATIVE); UROBILINOGEN,URINE 0.2 (NORMAL) E.U./dL (NORMAL)
--- NOTE | 2019-10-20 13:40 | ED Physician Documentation ---
PD HPI BACK PAIN - Stated complaint Stated Complaint: FEMALE - Chief complaint Chief Complaint: General - History obtained from History obtained from: Patient - History of Present Illness Timing - onset: How many days ago (3) Timing - duration: Days (3) Timing - details: Gradual onset Quality: Other ("Like being punched") Associated symptoms: No: Fever, Numbness, Incontinent of urine, Hematuria Recently seen: Not recently seen - Additional information Additional information: This is a 34-year-old woman who presents with complaints that she could not fill her prescription for her bladder infection that she was prescribed in 2019 and she thinks she has a urinary tract infection because there is a lot of odor with her urination and she has pain in her lower back that is radiating around to the front for the past 3 days. Apparently she was prescribed daily Macrobid that she has been on up until about 3 weeks ago when she ran out and she has not had it refilled. She did not take any medications for the pain. Denies any pain radiating down her legs. She has not had any fever "yet". She denies any vaginal bleeding but she is unsure when her last menstrual period was and she is not using control but denies . Review of Systems Constitutional: denies: Fever GI: denies: Nausea, Vomiting : reports: LMP (Unknown), Other (Malodorous urine). 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 : Other Psych: Depression, Anxiety - Past Surgical History Past Surgical History: No - Present Medications Home Medications: Ambulatory Orders Medication Instructions Recorded Confirmed Nitrofurantoin [Macrobid] 100 mg PO DAILY PRN 08/25/19 08/25/19 Sulfamethox/Trimeth 800/160 1 each PO BID #14 tablet 10/20/19 [Bactrim Ds 800/160] - Allergies Allergies/Adverse Reactions: Allergies Allergy/AdvReac Type Severity Reaction Status Date / Time No Known Drug Allergies Allergy Verified 10/20/19 13:16 - Social History Does the pt smoke?: No Smoking Status: Never smoker Does the pt drink ETOH?: No Does the pt have substance abuse?: No - Immunizations Immunizations are current?: No - POLST Patient has POLST: No PD ED PE NORMAL - Vitals Vital signs reviewed: Yes - General General: Alert and oriented X 3, No acute distress, Well developed/nourished, Other (Thin woman) - HEENT HEENT: Atraumatic, Moist mucous membranes - Cardiac Cardiac: RRR, No murmur, Strong equal pulses - Respiratory Respiratory: No respiratory distress, Clear bilaterally - Abdomen Abdomen: Normal bowel sounds, Soft, Non tender, Non distended, No organomegaly - Back Back: Other (No costovertebral angle tenderness but she nearly leapt off the exam chair with gentle percussion just above the iliac crests bilaterally.) - Derm Derm: Normal color, Warm and dry, No rash - Neuro Neuro: Alert and oriented X 3, 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 YELLOW Urine Clarity HAZY Urine pH 7.0 Ur Specific [place] <=1.005 <=1.005 Urine Protein NEGATIVE Urine Glucose (UA) NEGATIVE Urine Ketones NEGATIVE Urine Occult Blood MODERATE H Urine Nitrite NEGATIVE Urine Bilirubin NEGATIVE Urine Urobilinogen 0.2 (NORMAL) Ur Leukocyte Esterase MODERATE H Urine RBC 0-5 Urine WBC 11-25 H Urine WBC Clumps PRESENT Ur Squamous Epith Cells FEW Squamous Urine Bacteria Few Ur Microscopic Review INDICATED Urine Culture Comments INDICATED Urine HCG, Qual NEGATIVE PD MEDICAL DECISION MAKING - ED course Complexity details: reviewed results, d/w patient ED course: The patient has 11-25 white blood cells per high-power field on the urinalysis. She is not . Will treat with Bactrim DS for 7 days. Encourage her to use ibuprofen for the back discomfort. She should have the urine retested with her primary care provider after finishing the antibiotic and discuss whether or not she needs the daily Macrobid reinstituted at that time. Departure - Departure Disposition: 01 Home, Self Care Clinical Impression: Urinary tract infection Qualifiers: Urinary tract infection type: site unspecified Hematuria presence: without hematuria Qualified Code(s): N39.0 - Urinary tract infection, site not specified Condition: Good Instructions: ED UTI Cystitis Female Follow-Up: Jazmine Slater ARNP [Primary Care Provider] - Prescriptions: Sulfamethox/Trimeth 800/160 [Bactrim Ds 800/160] 1 each PO BID #14 tablet Comments: Take the antibiotic prescribed here today twice a day for 7 days. Make sure you drink plenty of water with this. I would highly recommend you eat yogurt daily or take an [id number] probiotic while you are on the antibiotic as well. Take ibuprofen 3 to 4 tablets every 8 hours with food for any back pain. Follow-up to have the urine retested with your primary care provider after finishing the antibiotics and to see if they will refill the Macrobid at that time for daily use. Follow-up if you have increasing back pain, you are vomiting and cannot keep anything down, you develop a high fever or are not urinating.
[2019-10-20 13:43] LABS: HCG UR QUAL NEGATIVE
[2019-10-20 13:43] LABS: CLARITY,URINE HAZY (CLEAR)
[2019-10-20 13:49] LABS: BACTERIA,URINE Few /HPF (None Seen); RBC,URINE 0-5 /HPF (0-5); SQUAMOUS EPITHELIAL CELL,UR FEW Squamous (<= Few); WBC CLUMPS,URINE PRESENT
[2019-10-20 14:05] VITALS: BP 120/69
== END 2019-10-20 14:05 | disposition home or self-care (01) ==
LOC: ED 13:05
DX: N39.0 Urinary tract infection, site not specified (principal)
CPT/HCPCS: 81001; 81025; 87077; 87086; 87181; 99283; 99284; A9270; 81003

== ENCOUNTER 2019-10-25 15:12 | Outpatient (CLI) | payer MEDICARE ==
[2019-10-25 17:34] LABS: BASOPHILS % (AUTO) 0.7 %; EOSINOPHILS % (AUTO) 0.4 %; HGB - HEMOGLOBIN 12.5 g/dL (12.0-16.0); LYMPHOCYTES % (AUTO) 31.1 %; MEAN CORPUSCULAR VOLUME 87.5 fL (81.0-99.0); MEAN PLATELET VOLUME 10.5 fL (7.9-10.8); MONOCYTES % (AUTO) 10.8 %; NEUTROPHILS % (AUTO) 56.6 %; PLT - PLATELET COUNT 232 10^3/uL (130-450); RED BLOOD COUNT 4.47 10^6/uL (4.20-5.40); RED CELL DISTRIBUTION WIDTH 12.7 % (12.0-15.0); WHITE BLOOD COUNT 5.4 x10^3/uL (4.8-10.8)
[2019-10-25 17:39] LABS: ABNORMAL LYMPHS % (MANUAL) 0 %; BAND NEUTROPHILS % (MANUAL) 0 %
[2019-10-25 18:03] LABS: BASOPHILS # (MANUAL) 0.1 10^3/uL (0-0.1); BASOPHILS % (MANUAL) 1 %; DIFFERENTIAL COMMENT MANUAL DIFFERENTIAL; EOSINOPHILS # (MANUAL) 0.1 10^3/uL (0-0.7); LYMPHOCYTES # (MANUAL) 1.4 10^3/uL (1.5-3.5); LYMPHOCYTES % (MANUAL) 25 %; MONOCYTES # (MANUAL) 0.5 10^3/uL (0.0-1.0); PLATELET ESTIMATE, MANUAL NORMAL (130-450,000) (NORMAL); PLATELET MORPHOLOGY NORMAL APPEARANCE (NORMAL); RBC MORPHOLOGY (MULTIPLE) NORMAL APPEARANCE (NORMAL)
[2019-10-25 18:28] LABS: CALCIUM 8.8 mg/dL (8.5-10.3); CREATININE 0.6 mg/dL (0.4-1.0)
== END 2019-10-25 23:59 | disposition home or self-care (01) ==
LOC: LAB.N 15:12
PROVIDERS: ATTEND Nurse Practitioner Gerontology
DX: N39.0 Urinary tract infection, site not specified (principal)
CPT/HCPCS: 36415; 80048; 85025

== ENCOUNTER 2020-03-25 10:01 | Emergency (ER) | payer MEDICARE ==
[2020-03-25 10:33] LABS: BILIRUBIN,URINE NEGATIVE (NEGATIVE); GLUCOSE, URINE (UA) NEGATIVE (NEGATIVE); KETONES,URINE (UA) NEGATIVE (NEGATIVE); LEUKOCYTE ESTERASE, URINE SMALL (NEGATIVE); NITRITE,URINE NEGATIVE (NEGATIVE); OCCULT BLOOD,URINE LARGE (NEGATIVE); PROTEIN,URINE NEGATIVE (NEGATIVE); UROBILINOGEN,URINE 0.2 (NORMAL) E.U./dL (NORMAL)
[2020-03-25 10:37] LABS: CLARITY,URINE CLEAR (CLEAR); HCG UR QUAL NEGATIVE
[2020-03-25 11:08] LABS: RBC,URINE 0-5 /HPF (0-5)
[2020-03-25 11:09] LABS: BACTERIA,URINE Few /HPF (None Seen); SQUAMOUS EPITHELIAL CELL,UR RARE Squamous (<= Few)
[2020-03-25] MEDS ORDERED: AZITHROMYCIN 250 MG TABLET PO STA (11:47)
[2020-03-25] MEDS ORDERED: cefTRIAXone 250 MG VIAL IM STA (11:47)
[2020-03-25] MEDS ORDERED: LIDOCAINE 1% 2 ML VIAL MC ONE (11:47)
--- NOTE | 2020-03-25 11:50 | ED Physician Documentation ---
History of Present Illness - Stated complaint Stated Complaint: FEMALE - Chief complaint Chief Complaint: UTI - History obtained from History obtained from: Patient - Additonal information Additional information: 34-year-old female presents to the emergency department with concern that she may have a recurrent urinary tract infection. She reports that it hurts every time she urinates and she is going more frequently than normal. She denies fevers, flank pain back pain or vomiting. She was seen for similar March 07 of this year. She was prescribed Keflex for cystitis. She did complete the full course. The urine did grow Klebsiella pneumonia which was marquis-sensitive. Patient does report to me that her symptoms typically occur after sexual intercourse with her . She reports that her has been reporting that he has dysuria urgency and frequency. She is unsure if he is sexually active with others outside of their relationship. She does desire STD testing today. Review of Systems Constitutional: denies: Fever, Chills Nose: denies: Rhinorrhea / runny nose, Congestion Throat: denies: Oral lesions / sores, Sore throat Cardiac: denies: Chest pain / pressure, Palpitations, Pedal edema, Calf pain Respiratory: denies: Dyspnea, Cough GI: denies: Abdominal Pain, Abdominal Swelling, Vomiting, Diarrhea : reports: Dysuria, Frequency, LMP (currently on menses). 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 Psych: Depression, Anxiety - Past Surgical History Past Surgical History: No - Present Medications Home Medications: Ambulatory Orders Medication Instructions Recorded Confirmed Nitrofurantoin [Macrobid] 100 mg PO DAILY PRN 08/25/19 08/25/19 Sulfamethox/Trimeth 800/160 1 each PO BID #14 tablet 10/20/19 [Bactrim Ds 800/160] Cephalexin [Keflex] 500 mg PO Q6H #20 capsule 03/07/20 Phenazopyridine HCl [Pyridium] 200 mg PO TID PRN #6 tablet 03/07/20 Amox/Clav 500/125 [Augmentin] 1 each PO Q12H #14 tablet 03/25/20 - Allergies Allergies/Adverse Reactions: Allergies Allergy/AdvReac Type Severity Reaction Status Date / Time No Known Drug Allergies Allergy Verified 03/25/20 10:14 - Social History Does the pt smoke?: No Smoking Status: Never smoker Does the pt drink ETOH?: No Does the pt have substance abuse?: No - Immunizations Immunizations are current?: No - POLST Patient has POLST: No PD ED PE NORMAL - General General: Alert and oriented X 3, No acute distress - HEENT HEENT: PERRL, EOMI - Neck Neck: No adenopathy - Cardiac Cardiac: RRR, No murmur - Respiratory Respiratory: No respiratory distress, Clear bilaterally - Abdomen Abdomen: Normal bowel sounds, Soft. No: Non tender (mild suprapubic tenderness. 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, No motor deficit Eye Opening: Spontaneous Motor: Obeys Commands Verbal: Oriented GCS Score: 15 - Psych Psych: Normal mood Results - Vitals Vitals: Vital Signs - 24 hr 03/25/20 10:06 Temperature 36 C L Heart Rate 74 Respiratory 16 Rate Blood Pressure 113/75 O2 Saturation 100 Oxygen O2 Source Room air - Labs Labs: Laboratory Tests 03/25/20 10:19 Urine Color YELLOW Urine Clarity CLEAR Urine pH 7.0 Ur Specific [place] 1.010 Urine Protein NEGATIVE Urine Glucose (UA) NEGATIVE Urine Ketones NEGATIVE Urine Occult Blood LARGE H Urine Nitrite NEGATIVE Urine Bilirubin NEGATIVE Urine Urobilinogen 0.2 (NORMAL) Ur Leukocyte Esterase SMALL H Urine RBC 0-5 Urine WBC 4-5 Ur Squamous Epith Cells RARE Squamous Urine Bacteria Few Ur Microscopic Review INDICATED Urine Culture Comments INDICATED Urine HCG, Qual NEGATIVE PD MEDICAL DECISION MAKING - ED course Complexity details: reviewed results, considered differential, d/w patient ED course: 34-year-old female presents to the emergency department for persistent dysuria urgency and frequency. Is seen for similar 3 weeks ago. Treated with Keflex for cystitis. Culture ultimately grew Klebsiella that was marquis-sensitive. In conversation patient reports to me that she is concerned her may be having sex outside of their relationship as he also is having urine Jaylen symptoms. Today the patient elects to empirically receive treatment for possible chlamydia/gonorrhea. She is given ceftriaxone and 1 g of azithromycin. We will also treat her urine based on last sensitivity with course of Augmentin. Patient was advised that her partner/ should be tested and treated before they engage in sexual activity again. I also recommended close follow-up with her primary care provider. Departure - Departure Disposition: 01 Home, Self Care Clinical Impression: Cystitis, Screen for STD (sexually transmitted disease) Condition: Stable Record reviewed to determine appropriate education?: Yes Instructions: ED UTI Cystitis Female, STDs Prescriptions: Amox/Clav 500/125 [Augmentin] 1 each PO Q12H #14 tablet Comments: Today we have given you an injection of an antibiotic as well is given you 2 pills here in the emergency department. This is for empiric treatment of possible chlamydia or gonorrhea. The testing for chlamydia and gonorrhea is pending from your urine sample. If it is positive we will notify you. However your partner must be tested and treated before you engage in sexual activity again as you report to me that he is having urinary symptoms. I have also prescribed a course of Augmentin for you to take twice a day for the next week. I do suspect that you also have an unresolved urinary tract inf ection and this antibiotic should work well to treat that. Please schedule very close follow-up with your primary care doctor. If your symptoms do not resolve or worsen you may need further evaluation or referral. Return to the emergency department for fevers, flank pain, vomiting or suddenly severe lower abdominal pain
[2020-03-25 12:21] VITALS: BP 120/78
[2020-03-25 19:33] LABS: TRICHOMONAS VAGINALIS DNA NEGATIVE (NEGATIVE)
== END 2020-03-25 12:20 | disposition home or self-care (01) ==
LOC: ED 10:01
DX: N30.90 Cystitis, unspecified without hematuria (principal); Z11.3 Encounter for screening for infections with a predominantly sexual mode of transmission
CPT/HCPCS: 81001; 81025; 87086; 87181; 87491; 87591; 87661; 96372; 99283; A9270; 81003

== ENCOUNTER 2020-04-10 15:39 | Emergency (ER) | payer MEDICARE ==
[2020-04-10 16:16] LABS: BILIRUBIN,URINE NEGATIVE (NEGATIVE); GLUCOSE, URINE (UA) NEGATIVE (NEGATIVE); KETONES,URINE (UA) NEGATIVE (NEGATIVE); LEUKOCYTE ESTERASE, URINE SMALL (NEGATIVE); NITRITE,URINE NEGATIVE (NEGATIVE); OCCULT BLOOD,URINE TRACE-INTA (NEGATIVE); PROTEIN,URINE NEGATIVE (NEGATIVE); UROBILINOGEN,URINE 0.2 (NORMAL) E.U./dL (NORMAL)
[2020-04-10 16:17] LABS: CLARITY,URINE CLEAR (CLEAR); HCG UR QUAL NEGATIVE
[2020-04-10 16:26] LABS: BACTERIA,URINE None Seen /HPF (None Seen); RBC,URINE 0-5 /HPF (0-5); SQUAMOUS EPITHELIAL CELL,UR RARE Squamous (<= Few)
--- NOTE | 2020-04-10 16:41 | ED Physician Documentation ---
PD HPI FEMALE - Stated complaint Stated Complaint: FEMALE - Chief complaint Chief Complaint: UTI - History obtained from History obtained from: Patient - History of Present Illness Timing - onset: Today Timing - duration: Hours Timing - details: Gradual onset, Still present Associated symptoms: Dysuria, Urinary frequency. No: Vaginal pain, Vaginal discharge, Genital sore/lesion Similar symptoms before: Diagnosis (UTI) Recently seen: Emergency Dept - Additional information Additional information: 34-year-old female with a history of recurrent urinary tract infections has symptoms again today. She has been seen in the emergency department in February twice. She has grown an E. coli that was pansensitive and she has grown Klebsiella pneumonia but has some resistance. She has most recently been on doxycycline Flagyl and last Augmentin. She indicates that she has previously seen the urologist in [place] Dr. Morley and had cystoscopy done last year. 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 : Other Psych: Depression, Anxiety - Past Surgical History Past Surgical History: No - Present Medications Home Medications: Ambulatory Orders Medication Instructions Recorded Confirmed Nitrofurantoin [Macrobid] 100 mg PO DAILY PRN 08/25/19 08/25/19 Sulfamethox/Trimeth 800/160 1 each PO BID #14 tablet 10/20/19 [Bactrim Ds 800/160] Cephalexin [Keflex] 500 mg PO Q6H #20 capsule 03/07/20 Phenazopyridine HCl [Pyridium] 200 mg PO TID PRN #6 tablet 03/07/20 Amox/Clav 500/125 [Augmentin] 1 each PO Q12H #14 tablet 03/25/20 Ciprofloxacin HCl [Cipro] 500 mg PO BID #10 tablet 04/10/20 - Allergies Allergies/Adverse Reactions: Allergies Allergy/AdvReac Type Severity Reaction Status Date / Time No Known Drug Allergies Allergy Verified 03/25/20 10:14 - Social History Does the pt smoke?: No Smoking Status: Never smoker Does the pt drink ETOH?: No Does the pt have substance abuse?: No - Immunizations Immunizations are current?: No - POLST Patient has POLST: No PD ED PE NORMAL - Vitals Vital signs reviewed: Yes (Normal) - General General: Alert and oriented X 3, No acute distress, Well developed/nourished, Other (The mask to patient and her mask is standing at the bedside advocating for the patient) - HEENT HEENT: Atraumatic, PERRL, EOMI - Respiratory Respiratory: No respiratory distress - Back Back: No CVA TTP, No spinal TTP - Derm Derm: Normal color, Warm and dry, No rash - Extremities Extremities: No deformity, No edema - Neuro Neuro: Alert and oriented X 3, 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, No motor deficit, No sensory deficit, Normal speech Eye Opening: Spontaneous Motor: Obeys Commands Verbal: Oriented GCS Score: 15 - Psych Psych: Normal mood, Normal affect Results - Vitals Vitals: Vital Signs - 24 hr 04/10/20 15:52 Heart Rate 82 Respiratory 14 Rate Blood Pressure 118/76 O2 Saturation 99 Oxygen O2 Source Room air - Labs Labs: Laboratory Tests 04/10/20 16:10 Urine Color YELLOW Urine Clarity CLEAR Urine pH 7.0 Ur Specific [place] <=1.005 Urine Protein NEGATIVE Urine Glucose (UA) NEGATIVE Urine Ketones NEGATIVE Urine Occult Blood TRACE-INTA Urine Nitrite NEGATIVE Urine Bilirubin NEGATIVE Urine Urobilinogen 0.2 (NORMAL) Ur Leukocyte Esterase SMALL H Urine RBC 0-5 Urine WBC 6-10 H Ur Squamous Epith Cells RARE Squamous Urine Bacteria None Seen Ur Microscopic Review INDICATED Urine Culture Comments INDICATED Urine HCG, Qual NEGATIVE PD MEDICAL DECISION MAKING - ED course Complexity details: reviewed old records, reviewed results, considered d ifferential, d/w patient, d/w family ED course: 34-year-old female with again urinary tract infection is referred to urology for follow-up and today we will put her on a course of Cipro. Departure - Departure Disposition: 01 Home, Self Care Clinical Impression: Urinary tract infection Qualifiers: Urinary tract infection type: acute cystitis Hematuria presence: without hematuria Qualified Code(s): N30.00 - Acute cystitis without hematuria Condition: Stable Instructions: ED UTI Cystitis Female Follow-Up: RAQUEL JENNINGS ARNP [Primary Care Provider] - Cortes Morley MD [Provider Admit Priv/Credential] - Prescriptions: Ciprofloxacin HCl [Cipro] 500 mg PO BID #10 tablet
[2020-04-10 17:05] VITALS: BP 116/76
== END 2020-04-10 17:07 | disposition home or self-care (01) ==
LOC: ED 15:39
DX: N30.00 Acute cystitis without hematuria (principal)
CPT/HCPCS: 81001; 81003; 81025; 87077; 87086; 87181; 99283

== ENCOUNTER 2020-05-22 14:30 | Outpatient (CLI) | payer MEDICARE | END 2020-05-22 23:59 | disposition home or self-care (01) | LOC: LAB.R 14:30 | PROVIDERS: ATTEND Family Medicine | DX: N30.00 Acute cystitis without hematuria (principal) | CPT/HCPCS: 87086 ==

== ENCOUNTER 2020-06-10 08:00 | Outpatient (CLI) | payer MEDICARE | END 2020-06-10 23:59 | disposition home or self-care (01) | LOC: LAB.WCP 08:00 | PROVIDERS: ATTEND Emergency Medicine | DX: N39.0 Urinary tract infection, site not specified (principal) ==

== ENCOUNTER 2020-06-10 21:50 | Outpatient (CLI) | payer MEDICARE ==
[2020-06-10 21:53] LABS: BILIRUBIN,URINE NEGATIVE (NEGATIVE); GLUCOSE, URINE (UA) NEGATIVE (NEGATIVE); KETONES,URINE (UA) NEGATIVE (NEGATIVE); LEUKOCYTE ESTERASE, URINE LARGE (NEGATIVE); NITRITE,URINE NEGATIVE (NEGATIVE); OCCULT BLOOD,URINE SMALL (NEGATIVE); PROTEIN,URINE NEGATIVE (NEGATIVE); UROBILINOGEN,URINE 0.2 (NORMAL) E.U./dL (NORMAL)
[2020-06-10 22:04] LABS: BACTERIA,URINE Few /HPF (None Seen); CLARITY,URINE HAZY (CLEAR); RBC,URINE 0-5 /HPF (0-5); SQUAMOUS EPITHELIAL CELL,UR FEW Squamous (<= Few)
== END 2020-06-10 21:51 | disposition home or self-care (01) ==
LOC: LAB.R 21:50
PROVIDERS: ATTEND Emergency Medicine
DX: R10.2 Pelvic and perineal pain (principal)
CPT/HCPCS: 81001; 87077; 87086; 87181

== ENCOUNTER 2020-07-13 08:00 | Outpatient (CLI) | payer MEDICARE | END 2020-07-13 23:59 | disposition home or self-care (01) | LOC: LAB.N 08:00 | PROVIDERS: ATTEND Physician Assistant Medical | DX: M54.5 Low back pain (principal) ==

== ENCOUNTER 2020-07-17 07:00 | Outpatient (CLI) | payer MEDICARE | END 2020-07-17 23:59 | disposition home or self-care (01) | LOC: LAB.R 07:00 | PROVIDERS: ATTEND Family Medicine | DX: R30.0 Dysuria (principal) | CPT/HCPCS: 87086 ==

== ENCOUNTER 2020-08-10 08:00 | Outpatient (CLI) | payer MEDICARE | END 2020-08-10 23:59 | disposition home or self-care (01) | LOC: LAB.R 08:00 | PROVIDERS: ATTEND Family Medicine | DX: N39.0 Urinary tract infection, site not specified (principal) | CPT/HCPCS: 87077; 87086; 87181 ==

== ENCOUNTER 2020-10-29 14:02 | Outpatient (CLI) | payer MEDICARE | END 2020-10-29 23:59 | disposition home or self-care (01) | LOC: LAB.R 14:02 | PROVIDERS: ATTEND Family Medicine | DX: R30.0 Dysuria (principal) | CPT/HCPCS: 87086 ==

== ENCOUNTER 2021-01-03 07:00 | Outpatient (CLI) | payer MEDICARE ==
[2021-01-03 18:49] LABS: BACTERIAL VAGINOSIS DNA NEGATIVE (NEGATIVE); CANDIDA GLABRATA DNA NEGATIVE (NEGATIVE); CANDIDA GROUP DNA NEGATIVE (NEGATIVE); CANDIDA KRUSEI DNA NEGATIVE (NEGATIVE); TRICHOMONAS VAGINALIS DNA NEGATIVE (NEGATIVE)
[2021-01-03 19:41] LABS: CHLAMYDIA TRACHOMATIS DNA NEGATIVE (NEGATIVE); NEISSERIA GONORRHOEAE DNA NEGATIVE (NEGATIVE); TRICHOMONAS VAGINALIS DNA NEGATIVE (NEGATIVE)
== END 2021-01-03 23:59 | disposition home or self-care (01) ==
LOC: LAB.N 07:00
PROVIDERS: ATTEND Physician Assistant Medical
DX: N39.0 Urinary tract infection, site not specified (principal)
CPT/HCPCS: 87086; 87491; 87591; 87661; 87801

== ENCOUNTER 2021-01-03 16:10 | Emergency (ER) | payer MEDICARE ==
[2021-01-03] MEDS ORDERED: PHENAZOPYRIDINE 100 MG TABLET PO STA (16:36)
--- NOTE | 2021-01-03 16:37 | ED Physician Documentation ---
PD HPI ABD PAIN - Stated complaint Stated Complaint: FEMALE - Chief complaint Chief Complaint: UTI - History obtained from History obtained from: Patient (Several days worth of suprapubic pressure, burning with urination and foul-smelling urine. 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 : Other Psych: Depression, Anxiety - Past Surgical History Past Surgical History: No - Present Medications Home Medications: Ambulatory Orders Medication Instructions Recorded Confirmed Nitrofurantoin Macrocrystal 100 mg PO BID #10 cap 01/03/21 [Macrodantin] Phenazopyridine HCl [Pyridium] 200 mg PO TID PRN #6 tablet 01/03/21 - Allergies Allergies/Adverse Reactions: Allergies Allergy/AdvReac Type Severity Reaction Status Date / Time No Known Drug Allergies Allergy Verified 01/03/21 16:19 - Social History Does the pt smoke?: No Smoking Status: Never smoker Does the pt drink ETOH?: No Does the pt have substance abuse?: No - Immunizations Immunizations are current?: No - POLST Patient has POLST: No PD ED PE NORMAL - Vitals Vital signs reviewed: Yes - General General: Alert and oriented X 3, No acute distress - Abdomen Abdomen: Soft, Non tender - Back Back: No CVA TTP - Neuro Neuro: Alert and oriented X 3, Normal speech Results - Vitals Vitals: Vital Signs - 24 hr 01/03/21 16:15 Temperature 35.9 C L Heart Rate 71 Respiratory 16 Rate Blood Pressure 97/80 O2 Saturation 100 Oxygen O2 Source Room air - Labs Labs: Laboratory Tests 01/03/21 16:22 Urine Color LIGHT YELLOW Urine Clarity CLEAR Urine pH 7.0 Ur Specific [place] <=1.005 Urine Protein NEGATIVE Urine Glucose (UA) NEGATIVE Urine Ketones NEGATIVE Urine Occult Blood SMALL H Urine Nitrite NEGATIVE Urine Bilirubin NEGATIVE Urine Urobilinogen 0.2 (NORMAL) Ur Leukocyte Esterase SMALL H Urine RBC 0-5 Urine WBC 11-25 H Ur Squamous Epith Cells FEW Squamous Urine Bacteria Few Ur Microscopic Review INDICATED Urine Culture Comments INDICATED Urine HCG, Qual NEGATIVE Departure - Departure Disposition: 01 Home, Self Care Clinical Impression: Cystitis Condition: Good Record reviewed to determine appropriate education?: Yes Instructions: ED UTI Cystitis Female Prescriptions: Nitrofurantoin Macrocrystal [Macrodantin] 100 mg PO BID #10 cap Phenazopyridine HCl [Pyridium] 200 mg PO TID PRN #6 tablet PRN Reason: dysuria Comments: Follow-up with urologist regarding your frequent UTIs as you are already planning to do. We are culturing your urine, if a resistant organism is found we will call you in a few days and change her antibiotics. Otherwise return if worsening or if you develop pain in the upper back or fevers.
[2021-01-03 16:41] LABS: BILIRUBIN,URINE NEGATIVE (NEGATIVE); GLUCOSE, URINE (UA) NEGATIVE (NEGATIVE); KETONES,URINE (UA) NEGATIVE (NEGATIVE); LEUKOCYTE ESTERASE, URINE SMALL (NEGATIVE); NITRITE,URINE NEGATIVE (NEGATIVE); OCCULT BLOOD,URINE SMALL (NEGATIVE); PROTEIN,URINE NEGATIVE (NEGATIVE); UROBILINOGEN,URINE 0.2 (NORMAL) E.U./dL (NORMAL)
[2021-01-03 16:44] LABS: CLARITY,URINE CLEAR (CLEAR); HCG UR QUAL NEGATIVE
[2021-01-03 16:52] LABS: BACTERIA,URINE Few /HPF (None Seen); RBC,URINE 0-5 /HPF (0-5); SQUAMOUS EPITHELIAL CELL,UR FEW Squamous (<= Few)
[2021-01-03] MEDS ORDERED: NITROFURANTOIN MACRO 100 MG CAPSULE PO STA (17:06)
[2021-01-03 17:14] VITALS: BP 123/87
== END 2021-01-03 17:18 | disposition home or self-care (01) ==
LOC: ED 16:10
DX: N30.90 Cystitis, unspecified without hematuria (principal)
CPT/HCPCS: 81001; 81025; 87086; 87481; 87491; 87591; 87661; 87801; 99283; A9270; 81003

== ENCOUNTER 2021-02-05 17:13 | Emergency (ER) | payer MEDICARE, MEDICAID ==
[2021-02-05 17:39] LABS: BILIRUBIN,URINE NEGATIVE (NEGATIVE); CLARITY,URINE CLEAR (CLEAR); GLUCOSE, URINE (UA) NEGATIVE (NEGATIVE); KETONES,URINE (UA) NEGATIVE (NEGATIVE); LEUKOCYTE ESTERASE, URINE NEGATIVE (NEGATIVE); NITRITE,URINE NEGATIVE (NEGATIVE); OCCULT BLOOD,URINE TRACE-INTA (NEGATIVE); PROTEIN,URINE NEGATIVE (NEGATIVE); UROBILINOGEN,URINE 0.2 (NORMAL) E.U./dL (NORMAL)
[2021-02-05 17:40] LABS: HCG UR QUAL NEGATIVE
[2021-02-05] MEDS ORDERED: NITROFURANTOIN MACRO 100 MG CAPSULE PO STA (20:01)
[2021-02-05] MEDS ORDERED: PHENAZOPYRIDINE 100 MG TABLET PO STA (20:01)
--- NOTE | 2021-02-05 20:02 | ED Physician Documentation ---
PD HPI FEMALE - Stated complaint Stated Complaint: FEMALE - Chief complaint Chief Complaint: UTI - History obtained from History obtained from: Patient (35-year-old woman developed burning dysuria and frequency this morning typical of her UTIs. No flank pain or vaginal discharge. She has no concern for STDs. No fevers. No possibility of .) Review of Systems Constitutional: reports: Reviewed and negative Cardiac: reports: Reviewed and negative Respiratory: reports: Reviewed and negative PD PAST MEDICAL HISTORY - Past Medical History Cardiovascular: None Endocrine/Autoimmune: None DENTIST: None : Other Psych: Depression, Anxiety - Past Surgical History Past Surgical History: No - Present Medications Home Medications: Ambulatory Orders Medication Instructions Recorded Confirmed Nitrofurantoin [Macrobid] 1 cap PO BID #10 cap 02/05/21 Phenazopyridine HCl [Pyridium] 200 mg PO TID PRN #6 tablet 02/05/21 - Allergies Allergies/Adverse Reactions: Allergies Allergy/AdvReac Type Severity Reaction Status Date / Time No Known Drug Allergies Allergy Verified 02/05/21 17:16 - Social History Does the pt smoke?: No Smoking Status: Never smoker Does the pt drink ETOH?: No Does the pt have substance abuse?: No - Immunizations Immunizations are current?: No - POLST Patient has POLST: No PD ED PE NORMAL - Vitals Vital signs reviewed: Yes - General General: Alert and oriented X 3, No acute distress - Abdomen Abdomen: Non tender - Neuro Neuro: Alert and oriented X 3, Normal speech Results - Vitals Vitals: Vital Signs - 24 hr 02/05/21 17:16 Temperature 36.9 C Heart Rate 80 Respiratory 18 Rate Blood Pressure 115/67 O2 Saturation 100 Oxygen O2 Source Room air - Labs Labs: Laboratory Tests 02/05/21 17:31 Urine Color YELLOW Urine Clarity CLEAR Urine pH 7.0 Ur Specific [place] 1.010 Urine Protein NEGATIVE Urine Glucose (UA) NEGATIVE Urine Ketones NEGATIVE Urine Occult Blood TRACE-INTA Urine Nitrite NEGATIVE Urine Bilirubin NEGATIVE Urine Urobilinogen 0.2 (NORMAL) Ur Leukocyte Esterase NEGATIVE Ur Microscopic Review NOT INDICATED Urine Culture Comments NOT INDICATED Urine HCG, Qual NEGATIVE PD MEDICAL DECISION MAKING - ED course ED course: Urinalysis is unremarkable but given her typical symptoms she probably still has cystitis and this is treated. Departure - Departure Disposition: 01 Home, Self Care Clinical Impression: Cystitis Condition: Good Record reviewed to determine appropriate education?: Yes Instructions: ED UTI Cystitis Female Prescriptions: Nitrofurantoin [Macrobid] 1 cap PO BID #10 cap Phenazopyridine HCl [Pyridium] 200 mg PO TID PRN #6 tablet PRN Reason: dysuria Comments: Return if you worsen or fail to improve over the next 48 hours or so.
[2021-02-05 20:14] VITALS: BP 111/71
== END 2021-02-05 20:12 | disposition home or self-care (01) ==
LOC: ED 17:13
DX: N30.90 Cystitis, unspecified without hematuria (principal)
CPT/HCPCS: 81003; 81025; 99283; A9270; 81001; 87086

== ENCOUNTER 2021-02-26 20:35 | Emergency (ER) | payer MEDICAID, MEDICARE ==
[2021-02-26 22:10] LABS: BILIRUBIN,URINE NEGATIVE (NEGATIVE); GLUCOSE, URINE (UA) 250 mg/dL (NEGATIVE); KETONES,URINE (UA) TRACE mg/dL (NEGATIVE); LEUKOCYTE ESTERASE, URINE SMALL (NEGATIVE); NITRITE,URINE POSITIVE (NEGATIVE); OCCULT BLOOD,URINE LARGE (NEGATIVE)
[2021-02-26 22:17] LABS: CLARITY,URINE SL. CLOUDY (CLEAR); HCG UR QUAL NEGATIVE
[2021-02-26 22:20] LABS: BACTERIA,URINE Moderate /HPF (None Seen); RBC,URINE TNTC /HPF (0-5); SQUAMOUS EPITHELIAL CELL,UR FEW Squamous (<= Few)
[2021-02-26] MEDS ORDERED: CIPROFLOXACIN 250 MG TABLET PO STA (22:47)
--- NOTE | 2021-02-26 22:49 | ED Physician Documentation ---
PD HPI FEMALE - Stated complaint Stated Complaint: FEMALE - Chief complaint Chief Complaint: UTI - History obtained from History obtained from: Patient (35-year-old woman developed burning and urinary frequency today. She has frequent bladder infections. No flank pain. 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 : Other Psych: Depression, Anxiety - Past Surgical History Past Surgical History: No - Present Medications Home Medications: Ambulatory Orders Medication Instructions Recorded Confirmed Nitrofurantoin [Macrobid] 1 cap PO BID #10 cap 02/05/21 Phenazopyridine HCl [Pyridium] 200 mg PO TID PRN #6 tablet 02/05/21 Ciprofloxacin [Cipro] 250 mg PO Q12H #10 tablet 02/26/21 - Allergies Allergies/Adverse Reactions: Allergies Allergy/AdvReac Type Severity Reaction Status Date / Time No Known Drug Allergies Allergy Verified 02/26/21 20:43 - Social History Does the pt smoke?: No Smoking Status: Never smoker Does the pt drink ETOH?: No Does the pt have substance abuse?: No - Immunizations Immunizations are current?: No - POLST Patient has POLST: No PD ED PE NORMAL - Vitals Vital signs reviewed: Yes - General General: Alert and oriented X 3, No acute distress - Abdomen Abdomen: Normal bowel sounds, Soft, Non tender - Derm Derm: Normal color, Warm and dry - Neuro Neuro: Alert and oriented X 3, Normal speech Results - Vitals Vitals: Vital Signs - 24 hr 02/26/21 20:40 Temperature 36.9 C Heart Rate 80 Respiratory 20 Rate Blood Pressure 113/64 O2 Saturation 99 Oxygen O2 Source Room air - Labs Labs: Laboratory Tests 02/26/21 21:53 Urine Color DK. ORANGE Urine Clarity SL. CLOUDY Urine pH 5.0 Ur Specific [place] 1.015 Urine Protein Urine Glucose (UA) 250 H Urine Ketones TRACE Urine Occult Blood LARGE H Urine Nitrite POSITIVE H Urine Bilirubin NEGATIVE Urine Urobilinogen Ur Leukocyte Esterase SMALL H Urine RBC TNTC H Urine WBC 11-25 H Ur Squamous Epith Cells FEW Squamous Urine Bacteria Moderate H Ur Microscopic Review INDICATED Urine Culture Comments INDICATED Urine HCG, Qual NEGATIVE PD MEDICAL DECISION MAKING - ED course ED course: No current flank pain, but she did have flank pain the other day and has had some nausea today Departure - Departure Disposition: 01 Home, Self Care Clinical Impression: Cystitis Condition: Good Record reviewed to determine appropriate education?: Yes Instructions: ED UTI Cystitis Female Follow-Up: Goldy Oropeza MD [Physician No Access] - Prescriptions: Ciprofloxacin [Cipro] 250 mg PO Q12H #10 tablet Comments: We will culture your urine, the results should be done in 48-72 hours. If an antibiotic change is necessary we will call you. Return if worse in the meantime, especially if you develop increasing flank pain, fevers, or cannot keep down the medication.
[2021-02-26 22:59] VITALS: BP 137/82
== END 2021-02-26 22:58 | disposition home or self-care (01) ==
LOC: ED 20:35
DX: N30.90 Cystitis, unspecified without hematuria (principal)
CPT/HCPCS: 81001; 81025; 87086; 87181; 99283; A9270; 81003

== ENCOUNTER 2021-03-27 12:26 | Emergency (ER) | payer MEDICARE ==
[2021-03-27 12:57] LABS: BILIRUBIN,URINE NEGATIVE (NEGATIVE); GLUCOSE, URINE (UA) NEGATIVE (NEGATIVE); KETONES,URINE (UA) NEGATIVE (NEGATIVE); LEUKOCYTE ESTERASE, URINE MODERATE (NEGATIVE); NITRITE,URINE NEGATIVE (NEGATIVE); OCCULT BLOOD,URINE LARGE (NEGATIVE); PH,URINE 6.5 PH (5.0-7.5); PROTEIN,URINE NEGATIVE (NEGATIVE); UROBILINOGEN,URINE 0.2 (NORMAL) E.U./dL (NORMAL)
[2021-03-27 13:07] LABS: CLARITY,URINE HAZY (CLEAR)
[2021-03-27 13:08] LABS: HCG UR QUAL NEGATIVE
[2021-03-27 13:09] LABS: BACTERIA,URINE Few /HPF (None Seen); SQUAMOUS EPITHELIAL CELL,UR FEW Squamous (<= Few); WBC,URINE >25 /HPF (0-5)
[2021-03-27] MEDS ORDERED: CIPROFLOXACIN 250 MG TABLET PO STA (15:03)
--- NOTE | 2021-03-27 15:07 | ED Physician Documentation ---
PD HPI FEMALE - Stated complaint Stated Complaint: ABD PX/FEM - Chief complaint Chief Complaint: UTI - History obtained from History obtained from: Patient - Additional information Additional information: 35-year-old woman with frequent almost monthly UTIs. Developed burning dysuria and low back pain today. No fevers or nausea. Similar to prior UTIs. Chart reviewed, generally grows out Klebsiella. Attempted to follow-up with urology after last visit but was unable to make an appointment at [facility]. 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 : Other Psych: Depression, Anxiety - Past Surgical History Past Surgical History: No - Present Medications Home Medications: Ambulatory Orders Medication Instructions Recorded Confirmed Nitrofurantoin [Macrobid] 1 cap PO BID #10 cap 02/05/21 Phenazopyridine HCl [Pyridium] 200 mg PO TID PRN #6 tablet 02/05/21 Ciprofloxacin [Cipro] 250 mg PO Q12H #10 tablet 02/26/21 Ciprofloxacin [Cipro] 250 mg PO Q12H #10 tablet 03/27/21 - Allergies Allergies/Adverse Reactions: Allergies Allergy/AdvReac Type Severity Reaction Status Date / Time No Known Drug Allergies Allergy Verified 03/27/21 12:39 - Social History Does the pt smoke?: No Smoking Status: Never smoker Does the pt drink ETOH?: No Does the pt have substance abuse?: No - Immunizations Immunizations are current?: No - POLST Patient has POLST: No PD ED PE NORMAL - Vitals Vital signs reviewed: Yes - General General: Alert and oriented X 3, No acute distress - Abdomen Abdomen: Soft, Non tender - Back Back: No CVA TTP - Neuro Neuro: Alert and oriented X 3, Normal speech Results - Vitals Vitals: Vital Signs - 24 hr 03/27/21 12:34 Temperature 36.3 C L Heart Rate 91 Respiratory 16 Rate Blood Pressure 125/78 O2 Saturation 99 Oxygen O2 Source Room air - Labs Labs: Laboratory Tests 03/27/21 12:50 Urine Color YELLOW Urine Clarity HAZY Urine pH 6.5 Ur Specific [place] <=1.005 Urine Protein NEGATIVE Urine Glucose (UA) NEGATIVE Urine Ketones NEGATIVE Urine Occult Blood LARGE H Urine Nitrite NEGATIVE Urine Bilirubin NEGATIVE Urine Urobilinogen 0.2 (NORMAL) Ur Leukocyte Esterase MODERATE H Urine RBC 6-10 H Urine WBC >25 H Ur Squamous Epith Cells FEW Squamous Urine Bacteria Few Ur Microscopic Review INDICATED Urine Culture Comments INDICATED Urine HCG, Qual NEGATIVE Departure - Departure Disposition: 01 Home, Self Care Clinical Impression: Cystitis Condition: Good Record reviewed to determine appropriate education?: Yes Instructions: ED UTI Cystitis Female Follow-Up: Goldy Oropeza MD [Physician No Access] - Prescriptions: Ciprofloxacin [Cipro] 250 mg PO Q12H #10 tablet Comments: Prescription sent electronically to [facility] in [place]. Followup with the urologist, call Monday for appointment. We will culture your urine, the results should be done in 48-72 hours. If an antibiotic change is necessary we will call you. Return if worse in the meantime, especially if you develop increasing flank pain, fevers, or cannot keep down the medication.
[2021-03-27 15:31] VITALS: BP 109/75
== END 2021-03-27 15:22 | disposition home or self-care (01) ==
LOC: ED 12:26
DX: N30.90 Cystitis, unspecified without hematuria (principal)
CPT/HCPCS: 81001; 81025; 87086; 99283; A9270; 81003; 87077; 87181

== ENCOUNTER 2021-04-16 08:00 | Outpatient (CLI) | payer MEDICARE | END 2021-04-16 23:59 | disposition home or self-care (01) | LOC: LAB.N 08:00 | PROVIDERS: ATTEND Family Medicine | DX: N39.0 Urinary tract infection, site not specified (principal) | CPT/HCPCS: 87086 ==

== ENCOUNTER 2021-05-13 10:02 | Emergency (ER) | payer MEDICARE ==
[2021-05-13 10:19] VITALS: BP 108/84
[2021-05-13 10:26] LABS: BILIRUBIN,URINE NEGATIVE (NEGATIVE); GLUCOSE, URINE (UA) NEGATIVE (NEGATIVE); KETONES,URINE (UA) NEGATIVE (NEGATIVE); LEUKOCYTE ESTERASE, URINE MODERATE (NEGATIVE); NITRITE,URINE POSITIVE (NEGATIVE); OCCULT BLOOD,URINE LARGE (NEGATIVE); PH,URINE 6.5 PH (5.0-7.5); PROTEIN,URINE NEGATIVE (NEGATIVE); UROBILINOGEN,URINE 0.2 (NORMAL) E.U./dL (NORMAL)
[2021-05-13 10:27] LABS: CLARITY,URINE CLEAR (CLEAR)
[2021-05-13 10:28] LABS: HCG UR QUAL NEGATIVE
--- NOTE | 2021-05-13 10:28 | ED Physician Documentation ---
PD HPI FEMALE - Stated complaint Stated Complaint: FEMALE - Chief complaint Chief Complaint: UTI - History obtained from History obtained from: Patient - History of Present Illness Timing - onset: Today Timing - duration: Days Timing - details: Abrupt onset, Still present Associated symptoms: Dysuria, Urinary frequency. No: Fever, Abdominal pain, Vaginal discharge Contributing factors: Sexually active. No: Exposed to STD Similar symptoms before: Diagnosis (UTI) Recently seen: Not recently seen Review of Systems Constitutional: denies: Fever, Chills : reports: Dysuria, Frequency. 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 : Chronic bladder infection, Other Psych: Depression, Anxiety - Past Surgical History Past Surgical History: No - Present Medications Home Medications: Ambulatory Orders Medication Instructions Recorded Confirmed Phenazopyridine HCl [Pyridium] 200 mg PO TID PRN #6 tablet 05/13/21 cephALEXin [Keflex] 500 mg PO TID #20 cap 05/13/21 diphenhydrAMINE [Benadryl] 25 - 50 mg ORAL TID PRN 05/13/21 05/13/21 - Allergies Allergies/Adverse Reactions: Allergies Allergy/AdvReac Type Severity Reaction Status Date / Time No Known Drug Allergies Allergy Verified 05/13/21 10:19 - Social History Does the pt smoke?: No Smoking Status: Never smoker Does the pt drink ETOH?: No Does the pt have substance abuse?: No - Immunizations Immunizations are current?: No - POLST Patient has POLST: No PD ED PE NORMAL - Vitals Vital signs reviewed: Yes - General General: Alert and oriented X 3, No acute distress, Well developed/nourished - Abdomen Abdomen: Soft, Non tender - Female Female : Deferred - Back Back: No CVA TTP - Derm Derm: Normal color, Warm and dry Results - Vitals Vitals: Oxygen O2 Source Room air - Labs Labs: Microbiology 05/13/21 10:07 Urine Culture - Final Urine,Random 50-100,000 COLONIES/ML Polymicrobial growth including potential pathogens. This is suggestive of skin or other contamination. Laboratory Tests 05/13/21 05/13/21 05/13/21 10:07 10:47 10:47 Urine Color YELLOW Urine Clarity CLEAR Urine pH 6.5 Ur Specific [place] <=1.005 Urine Protein NEGATIVE Urine Glucose (UA) NEGATIVE Urine Ketones NEGATIVE Urine Occult Blood LARGE H Urine Nitrite POSITIVE H Urine Bilirubin NEGATIVE Urine Urobilinogen 0.2 (NORMAL) Ur Leukocyte Esterase MODERATE H Urine RBC 6-10 H Urine WBC 11-25 H Ur Squamous Epith Cells RARE Squamous Urine Bacteria Rare Ur Microscopic Review INDICATED Urine Culture Comments INDICATED Urine HCG, Qual NEGATIVE C. glabrata (PCR) NEGATIVE C. krusei (PCR) NEGATIVE Xiomy species DNA NEGATIVE Chlam trachomat DNA PCR NEGATIVE N.gonorrhoeae DNA (PCR) NEGATIVE T. vaginalis (PCR) NEGATIVE NEGATIVE Bact Vaginosis (PCR) NEGATIVE PD MEDICAL DECISION MAKING - ED course Complexity details: reviewed results (UA c/w UTI and her symptoms. Can get testss for BV and STIs to ensure not other cause. ), considered differential, d/w patient Departure - Departure Disposition: 01 Home, Self Care Clinical Impression: Dysuria UTI (urinary tract infection) Qualifiers: Urinary tract infection type: acute cystitis Hematuria presence: with hematuria Qualified Code(s): N30.01 - Acute cystitis with hematuria Condition: Stable Record reviewed to determine appropriate education?: Yes Instructions: ED UTI Cystitis Female Prescriptions: cephALEXin [Keflex] 500 mg PO TID #20 cap Phenazopyridine HCl [Pyridium] 200 mg PO TID PRN #6 tablet PRN Reason: dysuria Comments: Hydrated. Tylenol or ibuprofen if needed for discomfort or pains. Phenazopyridine will help with urinary discomfort as well. Keflex as directed for the next week for infection. I would anticipate improvement over the next few days. Transmitted your prescriptions to [facility] pharmacy. Discharge Date/Time: 05/13/21 10:57
[2021-05-13 10:34] LABS: BACTERIA,URINE Rare /HPF (None Seen); SQUAMOUS EPITHELIAL CELL,UR RARE Squamous (<= Few)
[2021-05-13] MEDS ORDERED: PHENAZOPYRIDINE 100 MG TABLET PO STA (10:45)
[2021-05-13] MEDS ORDERED: cephALEXin 250 MG CAPSULE PO STA (10:45)
[2021-05-13 13:40] LABS: BACTERIAL VAGINOSIS DNA NEGATIVE (NEGATIVE); CANDIDA GLABRATA DNA NEGATIVE (NEGATIVE); CANDIDA GROUP DNA NEGATIVE (NEGATIVE); CANDIDA KRUSEI DNA NEGATIVE (NEGATIVE); TRICHOMONAS VAGINALIS DNA NEGATIVE (NEGATIVE)
[2021-05-13 21:55] LABS: CHLAMYDIA TRACHOMATIS DNA NEGATIVE (NEGATIVE); NEISSERIA GONORRHOEAE DNA NEGATIVE (NEGATIVE); TRICHOMONAS VAGINALIS DNA NEGATIVE (NEGATIVE)
== END 2021-05-13 10:57 | disposition home or self-care (01) ==
LOC: ED 10:02
DX: N30.01 Acute cystitis with hematuria (principal)
CPT/HCPCS: 81001; 81025; 87086; 87481; 87491; 87591; 87661; 87801; 99283; A9270; 81003

== ENCOUNTER 2021-06-19 15:33 | Emergency (ER) | payer MEDICARE ==
[2021-06-19 15:39] VITALS: BP 111/70
--- NOTE | 2021-06-19 15:56 | ED Physician Documentation ---
PD HPI FEMALE - Stated complaint Stated Complaint: FEMALE - Chief complaint Chief Complaint: UTI - History obtained from History obtained from: Patient - Additional information Additional information: 35-year-old woman gets frequent UTIs, about monthly. Developed dysuria and frequency this morning. Similar to prior UTIs. Recent cultures have grown Enterococcus and Klebsiella. Denies flank pain or fevers. Has been unable to see urology in follow-up despite efforts to try to see a urologist. 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 : Chronic bladder infection, Other HEENT: None Psych: Depression, Anxiety Musculoskeletal: None Derm: None - Past Surgical History Past Surgical History: No - Present Medications Home Medications: Ambulatory Orders Medication Instructions Recorded Confirmed diphenhydrAMINE [Benadryl] 25 - 50 mg ORAL TID PRN 05/13/21 06/19/21 Ciprofloxacin HCl [Cipro] 250 mg PO BID #10 tablet 06/19/21 Phenazopyridine HCl [Pyridium] 200 mg PO TID PRN #6 tablet 06/19/21 - Allergies Allergies/Adverse Reactions: Allergies Allergy/AdvReac Type Severity Reaction Status Date / Time No Known Drug Allergies Allergy Verified 06/19/21 15:36 - Social History Does the pt smoke?: No Smoking Status: Never smoker Does the pt drink ETOH?: Yes Does the pt have substance abuse?: No - Immunizations Immunizations are current?: No Immunizations: Other immun not current - POLST Patient has POLST: No PD ED PE NORMAL - Vitals Vital signs reviewed: Yes - General General: Alert and oriented X 3, No acute distress - Abdomen Abdomen: Normal bowel sounds, Soft, Non tender - Back Back: No CVA TTP - Derm Derm: Normal color, Warm and dry - Neuro Neuro: Alert and oriented X 3, Normal speech Results - Vitals Vitals: Vital Signs - 24 hr 06/19/21 15:36 Temperature 37 C Heart Rate 84 Respiratory 169 H Rate Blood Pressure 111/70 O2 Saturation 97 Oxygen O2 Source Room air - Labs Labs: Laboratory Tests 06/19/21 06/19/21 15:45 15:45 Urine Color YELLOW Urine Clarity CLEAR Urine pH 7.0 Ur Specific [place] <=1.005 Urine Protein NEGATIVE Urine Glucose (UA) NEGATIVE Urine Ketones NEGATIVE Urine Occult Blood TRACE-INTA Urine Nitrite POSITIVE H Urine Bilirubin NEGATIVE Urine Urobilinogen 0.2 (NORMAL) Ur Leukocyte Esterase MODERATE H Urine RBC 6-10 H Urine WBC >25 H Ur Squamous Epith Cells FEW Squamous Urine Bacteria Many H Ur Microscopic Review INDICATED Urine Culture Comments INDICATED Urine HCG, Qual NEGATIVE Departure - Departure Disposition: 01 Home, Self Care Clinical Impression: Cystitis Condition: Good Record reviewed to determine appropriate education?: Yes Instructions: ED UTI Cystitis Female Follow-Up: Goldy Oropeza MD [Physician No Access] - Prescriptions: Ciprofloxacin HCl [Cipro] 250 mg PO BID #10 tablet Phenazopyridine HCl [Pyridium] 200 mg PO TID PRN #6 tablet PRN Reason: dysuria Comments: I know you have been trying to get in with the urologist and its been difficult for you. You can go to the walk-in clinic on [facility] since you were previously established there and see if they can get you a formal referral. Also as discussed you could work with the [facility]'s to see if they can refer you to a urologist. We will culture your urine, the results should be done in 48-72 hours. If an antibiotic change is necessary we will call you. Return if worse in the meantime, especially if you develop increasing flank pain, fevers, or cannot keep down the medication.
[2021-06-19 16:03] LABS: BILIRUBIN,URINE NEGATIVE (NEGATIVE); GLUCOSE, URINE (UA) NEGATIVE (NEGATIVE); KETONES,URINE (UA) NEGATIVE (NEGATIVE); LEUKOCYTE ESTERASE, URINE MODERATE (NEGATIVE); NITRITE,URINE POSITIVE (NEGATIVE); OCCULT BLOOD,URINE TRACE-INTA (NEGATIVE); PROTEIN,URINE NEGATIVE (NEGATIVE); UROBILINOGEN,URINE 0.2 (NORMAL) E.U./dL (NORMAL)
[2021-06-19 16:07] LABS: CLARITY,URINE CLEAR (CLEAR); HCG UR QUAL NEGATIVE
[2021-06-19 16:11] LABS: BACTERIA,URINE Many /HPF (None Seen); SQUAMOUS EPITHELIAL CELL,UR FEW Squamous (<= Few); WBC,URINE >25 /HPF (0-5)
[2021-06-19] MEDS: CIPROFLOXACIN 250 MG TABLET PO STA (16:23)
[2021-06-19] MEDS: PHENAZOPYRIDINE 100 MG TABLET PO STA (16:23)
== END 2021-06-19 16:29 | disposition home or self-care (01) ==
LOC: ED 15:33
DX: N30.90 Cystitis, unspecified without hematuria (principal)
CPT/HCPCS: 81001; 81025; 87077; 87086; 87181; 99283; A9270; 81003

== ENCOUNTER 2021-07-12 13:24 | Outpatient (CLI) | payer MEDICARE | END 2021-07-12 23:59 | disposition home or self-care (01) | LOC: LAB.N 13:24 | PROVIDERS: ATTEND Physician Assistant Medical | DX: N39.0 Urinary tract infection, site not specified (principal); B37.2 Candidiasis of skin and nail; R39.9 Unspecified symptoms and signs involving the genitourinary system | CPT/HCPCS: 87077; 87086; 87181 ==

== ENCOUNTER 2021-07-15 11:21 | Emergency (ER) | payer MEDICAID, MEDICARE ==
[2021-07-15 11:40] VITALS: BP 129/69
--- NOTE | 2021-07-15 11:50 | ED Physician Documentation ---
PD HPI FEMALE - Stated complaint Stated Complaint: FEMALE - Chief complaint Chief Complaint: UTI - History obtained from History obtained from: Patient - History of Present Illness Timing - onset: How many days ago (4-5) Timing - duration: Days (4-5) Timing - details: Gradual onset, Still present Associated symptoms: Dysuria, Urinary frequency, Hematuria. No: Vaginal discharge, Genital sore/lesion Contributing factors: No: Exposed to STD Similar symptoms before: Diagnosis (UTIs monthly the past several months. She states she is getting referral to Urology by PCP.) Recently seen: Clinic (seen at Walk In 3 days ago and had UA c/w UTI. Rx with Macrobid and pyridium. Had been seen ER in Nov with UTI and culture was pseudomonas (resistant to Macrobid, sens to Cephalosporins and was treated with Keflex).) Review of Systems Constitutional: denies: Fever, Chills Nose: denies: Rhinorrhea / runny nose, Congestion Throat: denies: Sore throat Respiratory: denies: Cough GI: denies: Abdominal Pain, Nausea, Vomiting, Diarrhea : reports: Dysuria, Frequency, Hematuria. 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 : Chronic bladder infection, Other HEENT: None Psych: Depression, Anxiety Musculoskeletal: None Derm: None - Past Surgical History Past Surgical History: No - Present Medications Home Medications: Ambulatory Orders Medication Instructions Recorded Confirmed diphenhydrAMINE [Benadryl] 25 - 50 mg ORAL TID PRN 05/13/21 06/19/21 Ciprofloxacin HCl [Cipro] 250 mg PO BID #10 tablet 06/19/21 Phenazopyridine HCl [Pyridium] 200 mg PO TID PRN #6 tablet 06/19/21 Naproxen 250 mg PO BID 7 Days #14 tablet 07/15/21 Saccharomyces Boulardii [Florastor] 500 mg PO BIDWM 7 Days #14 cap 07/15/21 cephALEXin [Keflex] 500 mg PO TID #20 cap 07/15/21 - Allergies Allergies/Adverse Reactions: Allergies Allergy/AdvReac Type Severity Reaction Status Date / Time No Known Drug Allergies Allergy Verified 07/15/21 11:40 - Social History Does the pt smoke?: No Smoking Status: Never smoker Does the pt drink ETOH?: Yes Does the pt have substance abuse?: No - Immunizations Immunizations are current?: No Immunizations: Other immun not current - POLST Patient has POLST: No PD ED PE NORMAL - Vitals Vital signs reviewed: Yes - General General: Alert and oriented X 3, No acute distress, Well developed/nourished - Abdomen Abdomen: Soft, Non tender - Back Back: No CVA TTP - Derm Derm: Normal color, Warm and dry Results - Vitals Vitals: Vital Signs - 24 hr 07/15/21 11:36 Temperature 36.3 C L Heart Rate 68 Respiratory 16 Rate Blood Pressure 129/69 O2 Saturation 99 Oxygen O2 Source Room air - Labs Labs: Laboratory Tests 07/15/21 11:47 Urine Color DK. ORANGE Urine Clarity CLEAR Urine pH Ur Specific [place] 1.015 Urine Protein Urine Glucose (UA) Urine Ketones Urine Occult Blood Urine Nitrite Urine Bilirubin COLOR INTERFERENCE Urine Urobilinogen Ur Leukocyte Esterase Urine RBC 0-5 Urine WBC >25 H Ur Squamous Epith Cells MOD Squamous H Urine Bacteria Few Ur Microscopic Review INDICATED Urine Culture Comments NOT INDICATED Urine HCG, Qual NEGATIVE PD MEDICAL DECISION MAKING - ED course Complexity details: reviewed old records (prior cultures had shown true UTI Nov, mixed justen growth in ), reviewed results, considered differential (UTI with symptoms not improving with 3 days on Macrobid. ), d/w patient ED course: Note: since the visit earlier today, and the time of doing this chart now, the culture from 09/12 has become available. It has growth of Klebsiella and Enterococcus faecalis, both of which are sensitive to Cephalosporins/Penicillin. The Klebsiella was Indeterminate to Nitrofurantoin, so c/w not improving. Departure - Departure Disposition: 01 Home, Self Care Clinical Impression: UTI (urinary tract infection) Condition: Stable Record reviewed to determine appropriate education?: Yes Instructions: ED UTI Cystitis Female Prescriptions: Saccharomyces Boulardii [Florastor] 500 mg PO BIDWM 7 Days #14 cap cephALEXin [Keflex] 500 mg PO TID #20 cap Naproxen 250 mg PO BID 7 Days #14 tablet Comments: Stay well-hydrated. I would stop the nitrofurantoin (Macrobid) and change to cephalexin 3 times a day as directed. Add naproxen anti-inflammatory twice a day to help with symptoms. Also add the probiotic twice daily as directed to help with intestinal side effects of the antibiotic. Stay well-hydrated. Tylenol if needed for pains. Follow-up with your primary care or walk-in clinic in the urology referral as intended. I transmitted your prescriptions to [facility] pharmacy. Discharge Date/Time: 07/15/21 13:00
[2021-07-15] MEDS ORDERED: NAPROXEN 250 MG TABLET PO STA (12:13)
[2021-07-15] MEDS ORDERED: cephALEXin 250 MG CAPSULE PO STA (12:13)
[2021-07-15 12:48] LABS: CLARITY,URINE CLEAR (CLEAR)
[2021-07-15 12:52] LABS: BILIRUBIN,URINE COLOR INTERFERENCE (NEGATIVE)
[2021-07-15 12:53] LABS: HCG UR QUAL NEGATIVE
[2021-07-15 13:24] LABS: RBC,URINE 0-5 /HPF (0-5); SQUAMOUS EPITHELIAL CELL,UR MOD Squamous (<= Few); WBC,URINE >25 /HPF (0-5)
[2021-07-15 13:25] LABS: BACTERIA,URINE Few /HPF (None Seen)
== END 2021-07-15 13:00 | disposition home or self-care (01) ==
LOC: ED 11:21
DX: N39.0 Urinary tract infection, site not specified (principal)
CPT/HCPCS: 81001; 81003; 81025; 87086; 99282; 99283

== ENCOUNTER 2021-08-12 10:15 | Emergency (ER) | payer MEDICARE ==
[2021-08-12 10:45] LABS: BILIRUBIN,URINE NEGATIVE (NEGATIVE); GLUCOSE, URINE (UA) NEGATIVE (NEGATIVE); KETONES,URINE (UA) NEGATIVE (NEGATIVE); LEUKOCYTE ESTERASE, URINE MODERATE (NEGATIVE); NITRITE,URINE POSITIVE (NEGATIVE); OCCULT BLOOD,URINE SMALL (NEGATIVE); PH,URINE 6.5 PH (5.0-7.5); PROTEIN,URINE NEGATIVE (NEGATIVE); UROBILINOGEN,URINE 0.2 (NORMAL) E.U./dL (NORMAL)
[2021-08-12 10:48] LABS: CLARITY,URINE HAZY (CLEAR); HCG UR QUAL NEGATIVE
[2021-08-12 10:58] LABS: BACTERIA,URINE Moderate /HPF (None Seen); SQUAMOUS EPITHELIAL CELL,UR FEW Squamous (<= Few)
[2021-08-12] MEDS ORDERED: SULFAMETH/TRIMETH DS 800/160 MG TABLET PO STA (11:10)
--- NOTE | 2021-08-12 11:24 | ED Physician Documentation ---
History of Present Illness - Stated complaint Stated Complaint: FEMALE - Chief complaint Chief Complaint: UTI - History obtained from History obtained from: Patient - Additonal information Additional information: Patient comes emergency department chief complaint of dysuria for the last couple of days. She states she was just treated for urinary tract infection "last week" and had been seen here for this. Patient according to records actually was seen on July 12, though it is not clear if she took her antibiotics consistently, because she just finished them last week. Patient had originally been started on nitrofurantoin but switched over to Keflex. Patient states she has been having dysuria and frequency. No fevers or chills. No back pain. Patient denies any other complaints at this time. Review of Systems Ten Systems: 10 systems reviewed and negative Constitutional: reports: Reviewed and negative Eyes: reports: Reviewed and negative Ears: reports: Reviewed and negative Nose: reports: Reviewed and negative Throat: reports: Reviewed and negative Cardiac: reports: Reviewed and negative Respiratory: reports: Reviewed and negative GI: reports: Reviewed and negative : reports: Dysuria, Frequency Skin: reports: Reviewed and negative Musculoskeletal: reports: Reviewed and negative Neurologic: reports: Reviewed and negative Psychiatric: reports: Reviewed and negative Endocrine: reports: Reviewed and negative Immunocompromised: reports: Reviewed and negative PD PAST MEDICAL HISTORY - Past Medical History Cardiovascular: None Respiratory: None Neuro: None Endocrine/Autoimmune: None GI: None 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 : Chronic bladder infection, Other HEENT: None Psych: Depression, Anxiety Musculoskeletal: None Derm: None - Past Surgical History Past Surgical History: No - Present Medications Home Medications: Ambulatory Orders Medication Instructions Recorded Confirmed diphenhydrAMINE [Benadryl] 25 - 50 mg ORAL TID PRN 05/13/21 06/19/21 Ciprofloxacin HCl [Cipro] 250 mg PO BID #10 tablet 06/19/21 Phenazopyridine HCl [Pyridium] 200 mg PO TID PRN #6 tablet 06/19/21 Naproxen 250 mg PO BID 7 Days #14 tablet 07/15/21 Saccharomyces Boulardii [Florastor] 500 mg PO BIDWM 7 Days #14 cap 07/15/21 cephALEXin [Keflex] 500 mg PO TID #20 cap 07/15/21 Phenazopyridine HCl [Pyridium] 200 mg PO TID PRN #6 tablet 08/12/21 Sulfamethox/Trimeth 800/160 1 each PO BID #14 tablet 08/12/21 [Bactrim Ds 800/160] - Allergies Allergies/Adverse Reactions: Allergies Allergy/AdvReac Type Severity Reaction Status Date / Time No Known Drug Allergies Allergy Verified 08/12/21 10:27 - Social History Does the pt smoke?: No Smoking Status: Never smoker Does the pt drink ETOH?: Yes Does the pt have substance abuse?: No - Immunizations Immunizations are current?: No Immunizations: Other immun not current - POLST Patient has POLST: No PD ED PE NORMAL - Vitals Vital signs reviewed: Yes - General General: Alert and oriented X 3, No acute distress, Well developed/nourished - HEENT HEENT: Atraumatic, PERRL, EOMI, Moist mucous membranes - Neck Neck: Supple, no meningeal sign - Cardiac Cardiac: RRR, No murmur, Strong equal pulses - Respiratory Respiratory: No respiratory distress, Clear bilaterally - Abdomen Abdomen: Soft, Non distended, Other (Mild bilateral lower abdominal tenderness no rebound or guarding.) - Derm Derm: Normal color, Warm and dry, No rash - Extremities Extremities: No deformity, No edema - Neuro Neuro: Alert and oriented X 3, medical records technician 2-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, Normal speech - Psych Psych: Normal mood, Normal affect Results - Vitals Vitals: Vital Signs - 24 hr 08/12/21 10:24 Temperature 36.6 C Heart Rate 69 Respiratory 156 H Rate Blood Pressure 136/74 H O2 Saturation 97 Oxygen O2 Source Room air - Labs Labs: Laboratory Tests 08/12/21 08/12/21 10:30 10:30 Urine Color YELLOW Urine Clarity HAZY Urine pH 6.5 Ur Specific [place] <=1.005 Urine Protein NEGATIVE Urine Glucose (UA) NEGATIVE Urine Ketones NEGATIVE Urine Occult Blood SMALL H Urine Nitrite POSITIVE H Urine Bilirubin NEGATIVE Urine Urobilinogen 0.2 (NORMAL) Ur Leukocyte Esterase MODERATE H Urine RBC 6-10 H Urine WBC 11-25 H Ur Squamous Epith Cells FEW Squamous Urine Bacteria Moderate H Ur Microscopic Review INDICATED Urine Culture Comments INDICATED Urine HCG, Qual NEGATIVE PD MEDICAL DECISION MAKING - ED course Complexity details: reviewed old records, reviewed results, re-evaluated patient, considered differential, d/w patient ED course: Patient was started on Bactrim. We have discussed the usual indications for return. Departure - Departure Disposition: Home, Self Care Clinical Impression: Urinary tract infection Qualifiers: Urinary tract infection type: acute cystitis Hematuria presence: without hematuria Qualified Code(s): N30.00 - Acute cystitis without hematuria Condition: Stable Instructions: ED UTI Cystitis Female Prescriptions: Sulfamethox/Trimeth 800/160 [Bactrim Ds 800/160] 1 each PO BID #14 tablet Phenazopyridine HCl [Pyridium] 200 mg PO TID PRN #6 tablet PRN Reason: dysuria Comments: Your prescriptions have been electronically transmitted to [facility] pharmacy in [place]
[2021-08-12 11:52] VITALS: BP 109/72
== END 2021-08-12 11:51 | disposition home or self-care (01) ==
LOC: ED 10:15
DX: N30.00 Acute cystitis without hematuria (principal)
CPT/HCPCS: 81001; 81025; 87086; 87181; 99283; A9270; 81003

== ENCOUNTER 2021-09-07 07:52 | Emergency (ER) | payer MEDICARE ==
[2021-09-07 08:13] VITALS: BP 136/79
[2021-09-07 08:28] LABS: BILIRUBIN,URINE NEGATIVE (NEGATIVE); GLUCOSE, URINE (UA) NEGATIVE (NEGATIVE); KETONES,URINE (UA) NEGATIVE (NEGATIVE); LEUKOCYTE ESTERASE, URINE SMALL (NEGATIVE); NITRITE,URINE NEGATIVE (NEGATIVE); OCCULT BLOOD,URINE SMALL (NEGATIVE); PH,URINE 6.5 PH (5.0-7.5); PROTEIN,URINE NEGATIVE (NEGATIVE); UROBILINOGEN,URINE 0.2 (NORMAL) E.U./dL (NORMAL)
[2021-09-07 08:30] LABS: CLARITY,URINE CLEAR (CLEAR); HCG UR QUAL NEGATIVE
[2021-09-07 08:43] LABS: BACTERIA,URINE Few /HPF (None Seen); SQUAMOUS EPITHELIAL CELL,UR MOD Squamous (<= Few)
--- NOTE | 2021-09-07 08:47 | ED Physician Documentation ---
PD HPI FEMALE - Stated complaint Stated Complaint: FEMALE - Chief complaint Chief Complaint: UTI - History obtained from History obtained from: Patient - History of Present Illness Timing - onset: Today Timing - duration: Hours Timing - details: Gradual onset, Still present Associated symptoms: Dysuria, Urinary frequency Contributing factors: No: Similar symptoms before: Diagnosis (UTI) Recently seen: Not recently seen - Additional information Additional information: 36-year-old female with a history of frequent urinary tract infections has again symptoms of urinary tract infection she has not been able to get in to see the urologist this year. 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 : Chronic bladder infection, Other HEENT: None Psych: Depression, Anxiety Musculoskeletal: None Derm: None - Past Surgical History Past Surgical History: No - Present Medications Home Medications: Ambulatory Orders Medication Instructions Recorded Confirmed diphenhydrAMINE [Benadryl] 25 - 50 mg ORAL TID PRN 21 06/19/21 Ciprofloxacin HCl [Cipro] 250 mg PO BID #10 tablet 06/19/21 Phenazopyridine HCl [Pyridium] 200 mg PO TID PRN #6 tablet 06/19/21 Naproxen 250 mg PO BID 7 Days #14 tablet 07/15/21 Saccharomyces Boulardii [Florastor] 500 mg PO BIDWM 7 Days #14 cap 07/15/21 cephALEXin [Keflex] 500 mg PO TID #20 cap 07/15/21 Phenazopyridine HCl [Pyridium] 200 mg PO TID PRN #6 tablet 08/12/21 Sulfamethox/Trimeth 800/160 1 each PO BID #14 tablet 08/12/21 [Bactrim Ds 800/160] Phenazopyridine HCl [Pyridium] 200 mg PO TID PRN #6 tablet 09/07/21 Sulfamethox/Trimeth 800/160 1 each PO BID #14 tablet 09/07/21 [Bactrim Ds] - Allergies Allergies/Adverse Reactions: Allergies Allergy/AdvReac Type Severity Reaction Status Date / Time No Known Drug Allergies Allergy Verified 09/07/21 08:13 - Social History Does the pt smoke?: No Smoking Status: Never smoker Does the pt drink ETOH?: Yes Does the pt have substance abuse?: No - Immunizations Immunizations are current?: No Immunizations: Other immun not current - POLST Patient has POLST: No PD ED PE NORMAL - Vitals Vital signs reviewed: Yes (hypertensive) - General General: Alert and oriented X 3, No acute distress, Well developed/nourished - HEENT HEENT: Atraumatic, PERRL, EOMI - Neck Neck: Supple, no meningeal sign - Respiratory Respiratory: No respiratory distress - Abdomen Abdomen: Normal bowel sounds, Soft, Non tender, Non distended, No organomegaly - Back Back: No CVA TTP, No spinal TTP - Derm Derm: Normal color, Warm and dry, No rash - Extremities Extremities: No deformity, No edema - Neuro Neuro: Alert and oriented X 3, final assembler 2-12 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, No motor deficit, No sensory deficit, Normal speech Eye Opening: Spontaneous Motor: Obeys Commands Verbal: Oriented GCS Score: 15 - Psych Psych: Normal mood, Normal affect Results - Vitals Vitals: Vital Signs - 24 hr 09/07/21 08:09 Temperature 37.2 C Heart Rate 88 Respiratory 15 Rate Blood Pressure 136/79 H O2 Saturation 99 Oxygen O2 Source Room air - Labs Labs: Laboratory Tests 09/07/21 08:20 Urine Color YELLOW Urine Clarity CLEAR Urine pH 6.5 Ur Specific [place] <=1.005 Urine Protein NEGATIVE Urine Glucose (UA) NEGATIVE Urine Ketones NEGATIVE Urine Occult Blood SMALL H Urine Nitrite NEGATIVE Urine Bilirubin NEGATIVE Urine Urobilinogen 0.2 (NORMAL) Ur Leukocyte Esterase SMALL H Urine RBC 6-10 H Urine WBC 11-25 H Ur Squamous Epith Cells MOD Squamous H Urine Bacteria Few Ur Microscopic Review INDICATED Urine Culture Comments NOT INDICATED Urine HCG, Qual NEGATIVE PD MEDICAL DECISION MAKING - ED course Complexity details: reviewed results, re-evaluated patient, considered differential, d/w patient ED course: 36-year-old female with yet another urinary tract infection presents urine it does appear infected there it does not meet the grade for culture however. She is administered Departure - Departure Disposition: 01 Home, Self Care Clinical Impression: Urinary tract infection Qualifiers: Urinary tract infection type: acute cystitis Hematuria presence: with hematuria Qualified Code(s): N30.01 - Acute cystitis with hematuria Condition: Stable Instructions: ED UTI Cystitis Female Follow-Up: [facility] [place] [Provider Group] MASSIEL AGUIAR MD [Physician No Access] - Prescriptions: Sulfamethox/Trimeth 800/160 [Bactrim Ds] 1 each PO BID #14 tablet Phenazopyridine HCl [Pyridium] 200 mg PO TID PRN #6 tablet PRN Reason: dysuria Comments: Jennifer, it looks like you have another urinary tract infection. Frequent infections can sometimes be related to an anatomic abnormality and a follow-up with the urologist is indicated. I have E scribed medications for the symptoms and the antibiotic to [facility] in [place]. Discharge Date/Time: 09/07/21 09:00
== END 2021-09-07 09:00 | disposition home or self-care (01) ==
LOC: ED 07:52
DX: N30.01 Acute cystitis with hematuria (principal)
CPT/HCPCS: 81001; 81003; 81025; 87086; 99283

== ENCOUNTER 2021-09-25 13:01 | Emergency (ER) | payer MEDICARE ==
[2021-09-25 13:18] VITALS: BP 116/79
[2021-09-25 13:35] LABS: BILIRUBIN,URINE NEGATIVE (NEGATIVE); GLUCOSE, URINE (UA) NEGATIVE (NEGATIVE); KETONES,URINE (UA) NEGATIVE (NEGATIVE); LEUKOCYTE ESTERASE, URINE TRACE (NEGATIVE); NITRITE,URINE NEGATIVE (NEGATIVE); OCCULT BLOOD,URINE NEGATIVE (NEGATIVE); PROTEIN,URINE NEGATIVE (NEGATIVE); UROBILINOGEN,URINE 0.2 (NORMAL) E.U./dL (NORMAL)
[2021-09-25 13:37] LABS: CLARITY,URINE CLEAR (CLEAR); HCG UR QUAL NEGATIVE
[2021-09-25 13:42] LABS: BACTERIA,URINE None Seen /HPF (None Seen); RBC,URINE None Seen /HPF (0-5); SQUAMOUS EPITHELIAL CELL,UR RARE Squamous (<= Few); WBC,URINE 0-3 /HPF (0-5)
--- NOTE | 2021-09-25 14:02 | ED Physician Documentation ---
PD HPI FEMALE - Stated complaint Stated Complaint: FEMALE - Chief complaint Chief Complaint: UTI - History obtained from History obtained from: Patient - History of Present Illness Timing - onset: How many weeks ago (4) Timing - duration: Weeks (4) Timing - details: Gradual onset, Still present, Waxing and waning (Patient has had dysuria and frequency with burning for 4 weeks. Seen in the ER 2 weeks ago and treated with Cipro with some improvement for a week. Symptoms back again the last several days. Also some itching.) Review of Systems Constitutional: denies: Fever, Chills Nose: denies: Rhinorrhea / runny nose, Congestion Throat: denies: Sore throat Respiratory: denies: Cough : reports: Dysuria, Frequency, Discharge (mild white with some itching). 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 : Chronic bladder infection, Other HEENT: None Psych: Depression, Anxiety Musculoskeletal: None Derm: None - Past Surgical History Past Surgical History: No - Present Medications Home Medications: Ambulatory Orders Medication Instructions Recorded Confirmed diphenhydrAMINE [Benadryl] 25 - 50 mg ORAL TID PRN 05/13/21 06/19/21 Ciprofloxacin HCl [Cipro] 250 mg PO BID #10 tablet 06/19/21 Phenazopyridine HCl [Pyridium] 200 mg PO TID PRN #6 tablet 06/19/21 Naproxen 250 mg PO BID 7 Days #14 tablet 07/15/21 Saccharomyces Boulardii [Florastor] 500 mg PO BIDWM 7 Days #14 cap 07/15/21 cephALEXin [Keflex] 500 mg PO TID #20 cap 07/15/21 Phenazopyridine HCl [Pyridium] 200 mg PO TID PRN #6 tablet 08/12/21 Sulfamethox/Trimeth 800/160 1 each PO BID #14 tablet 08/12/21 [Bactrim Ds 800/160] Phenazopyridine HCl [Pyridium] 200 mg PO TID PRN #6 tablet 09/07/21 Sulfamethox/Trimeth 800/160 1 each PO BID #14 tablet 09/07/21 [Bactrim Ds] Fluconazole [Diflucan] 150 mg PO Q3D 6 Days #2 tablet 09/25/21 Naproxen 250 mg PO TID 5 Days #15 tablet 09/25/21 Phenazopyridine HCl [Pyridium] 100 mg PO TID PRN #15 tablet 09/25/21 cephALEXin [Keflex] 500 mg PO TID 5 Days #15 cap 09/25/21 - Allergies Allergies/Adverse Reactions: Allergies Allergy/AdvReac Type Severity Reaction Status Date / Time No Known Drug Allergies Allergy Verified 09/25/21 13:18 - Social History Does the pt smoke?: No Smoking Status: Never smoker Does the pt drink ETOH?: Yes Does the pt have substance abuse?: No - Immunizations Immunizations are current?: No Immunizations: Other immun not current - POLST Patient has POLST: No PD ED PE NORMAL - Vitals Vital signs reviewed: Yes - General General: Alert and oriented X 3, No acute distress, Well developed/nourished - Abdomen Abdomen: Soft, Non tender - Female Female : Deferred - Rectal Rectal: Deferred - Back Back: No CVA TTP - Derm Derm: Normal color, Warm and dry Results - Vitals Vitals: Vital Signs - 24 hr 09/25/21 13:14 Temperature 36.3 C L Heart Rate 95 Respiratory 16 Rate Blood Pressure 116/79 O2 Saturation 100 Oxygen O2 Source Room air - Labs Labs: Laboratory Tests 09/25/21 09/25/21 13:26 14:35 Urine Color YELLOW Urine Clarity CLEAR Urine pH 6.0 Ur Specific Malcolm <=1.005 Urine Protein NEGATIVE Urine Glucose (UA) NEGATIVE Urine Ketones NEGATIVE Urine Occult Blood NEGATIVE Urine Nitrite NEGATIVE Urine Bilirubin NEGATIVE Urine Urobilinogen 0.2 (NORMAL) Ur Leukocyte Esterase TRACE H Urine RBC None Seen Urine WBC 0-3 Ur Squamous Epith Cells RARE Squamous Urine Bacteria None Seen Ur Microscopic Review INDICATED Urine Culture Comments INDICATED Urine HCG, Qual NEGATIVE C. glabrata (PCR) NEGATIVE C. krusei (PCR) NEGATIVE Xiomy species DNA NEGATIVE T. vaginalis (PCR) NEGATIVE Bact Vaginosis (PCR) NEGATIVE PD MEDICAL DECISION MAKING - ED course Complexity details: reviewed results, considered differential (Urinalysis was consistent with recurrent UTI. She also has symptoms suggestive of yeast infection. We will have her self swab for BV screen as well.), d/w patient Departure - Departure Disposition: 01 Home, Self Care Clinical Impression: Dysuria, Vaginal irritation Condition: Stable Record reviewed to determine appropriate education?: Yes Prescriptions: Fluconazole [Diflucan] 150 mg PO Q3D 6 Days #2 tablet cephALEXin [Keflex] 500 mg PO TID 5 Days #15 cap Naproxen 250 mg PO TID 5 Days #15 tablet Phenazopyridine HCl [Pyridium] 100 mg PO TID PRN #15 tablet PRN Reason: Abdominal Pain Comments: Your urine test is suggestive of a repeat turning infection. We can treat with cephalexin antibiotic 3 times a day for the next 5 days. The urine culture should result in a couple of days to verify if this is the appropriate antibiotic. You may additionally have a vaginal yeast infection. The test for that should result later today or tomorrow. We will treat it as likely yeast infection as well with an antifungal tablet. We gave you 1 here and would have you repeated every 3 days for 2 more doses (so over a 6-day period). For the urinary discomfort, you can also use phenazopyridine 3 times a day for the next 5 days and naproxen anti-inflammatory 3 times a day as well. Stay well-hydrated. Return if not improving well over the next several days and sooner if worse. I transmitted your prescriptions to [facility] pharmacy. Discharge Date/Time: 09/25/21 14:52
[2021-09-25] MEDS ORDERED: PHENAZOPYRIDINE 100 MG TABLET PO STA (14:15)
[2021-09-25] MEDS ORDERED: cephALEXin 250 MG CAPSULE PO STA (14:15)
[2021-09-25] MEDS ORDERED: IBUPROFEN 600 MG TABLET PO STA (14:15)
[2021-09-25] MEDS ORDERED: FLUCONAZOLE 100 MG TABLET PO STA (14:15)
[2021-09-25 16:48] LABS: BACTERIAL VAGINOSIS DNA NEGATIVE (NEGATIVE); CANDIDA GLABRATA DNA NEGATIVE (NEGATIVE); CANDIDA GROUP DNA NEGATIVE (NEGATIVE); CANDIDA KRUSEI DNA NEGATIVE (NEGATIVE); TRICHOMONAS VAGINALIS DNA NEGATIVE (NEGATIVE)
== END 2021-09-25 14:52 | disposition home or self-care (01) ==
LOC: ED 13:01
DX: N39.0 Urinary tract infection, site not specified (principal)
CPT/HCPCS: 81001; 81025; 87077; 87086; 87181; 87481; 87661; 87801; 99282; 99284; A9270; 81003

== ENCOUNTER 2021-10-14 08:00 | Outpatient (CLI) | payer MEDICAID, MEDICARE | END 2021-10-14 23:59 | LOC: LAB.N 08:00 | PROVIDERS: ATTEND Family Medicine | DX: N39.0 Urinary tract infection, site not specified (principal) | CPT/HCPCS: 87077; 87086; 87181 ==

== ENCOUNTER 2021-11-02 08:00 | Outpatient (CLI) | payer MEDICARE | END 2021-11-02 23:59 | disposition home or self-care (01) | LOC: LAB.N 08:00 | PROVIDERS: ATTEND Nurse Practitioner | DX: R30.0 Dysuria (principal) | CPT/HCPCS: 87086; 87181 ==

== ENCOUNTER 2021-11-18 14:46 | Emergency (ER) | payer MEDICARE ==
[2021-11-18 14:57] VITALS: BP 118/70
--- OUTSIDE RECORDS SUMMARY | 2021-11-18 15:08 | EXTERNAL MEDICAL SUMMARY RPT | Continuity of Care Document ---
:1985 Author Organization [facility] Address [address] [place] [address] Phone Care Team Providers Name Role Phone Bryon Unavailable Unavailable Allergies No information. Encounters No information. Medications No information. Problems date description facility [id number] Other disturbances of skin sensation [facility] [id number] Personal history of urinary (tract) inf ections [facility] Procedures date description facility [id number] [facility] Results No information. Vital Signs date measurement value source [id number] respiration_rate 16 /min [id number] heart_rate 87 /min [id number] BP_systolic 110 mm[Hg] 20210914 BP_diastolic 74 mm[Hg]
[2021-11-18 15:12] LABS: BILIRUBIN,URINE NEGATIVE (NEGATIVE); GLUCOSE, URINE (UA) NEGATIVE (NEGATIVE); KETONES,URINE (UA) NEGATIVE (NEGATIVE); LEUKOCYTE ESTERASE, URINE MODERATE (NEGATIVE); NITRITE,URINE NEGATIVE (NEGATIVE); OCCULT BLOOD,URINE SMALL (NEGATIVE); PROTEIN,URINE NEGATIVE (NEGATIVE); UROBILINOGEN,URINE 0.2 (NORMAL) E.U./dL (NORMAL)
--- NOTE | 2021-11-18 15:22 | ED Physician Documentation ---
History of Present Illness - Stated complaint Stated Complaint: FEMALE - Chief complaint Chief Complaint: UTI - Additonal information Additional information: 28-year-old female presents emergency department for evaluation of dysuria, urge ncy, frequency and suprapubic pain. Symptoms began about 24 hours ago. She reports that she frequently gets urinary tract infections. Typically after intercourse though she voids each time. She does not use condoms with her partner as they are monogamous. No fevers. No flank pain. She is currently lacking a primary care provider but looking to obtain one. Review of Systems Constitutional: reports: Reviewed and negative Nose: reports: Reviewed and negative Cardiac: reports: Reviewed and negative Respiratory: reports: Reviewed and negative GI: reports: Abdominal Pain : reports: Dysuria, Frequency. 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 : Chronic bladder infection, Other HEENT: None Psych: Depression, Anxiety Musculoskeletal: None Derm: None - Past Surgical History Past Surgical History: No - Present Medications Home Medications: Ambulatory Orders Medication Instructions Recorded Confirmed diphenhydrAMINE [Benadryl] 25 - 50 mg ORAL TID PRN 21 06/19/21 Ciprofloxacin HCl [Cipro] 250 mg PO BID #10 tablet 06/19/21 Phenazopyridine HCl [Pyridium] 200 mg PO TID PRN #6 tablet 06/19/21 Naproxen 250 mg PO BID 7 Days #14 tablet 07/15/21 Saccharomyces Boulardii [Florastor] 500 mg PO BIDWM 7 Days #14 cap 07/15/21 cephALEXin [Keflex] 500 mg PO TID #20 cap 07/15/21 Phenazopyridine HCl [Pyridium] 200 mg PO TID PRN #6 tablet 08/12/21 Sulfamethox/Trimeth 800/160 1 each PO BID #14 tablet 08/12/21 [Bactrim Ds 800/160] Phenazopyridine HCl [Pyridium] 200 mg PO TID PRN #6 tablet 09/07/21 Sulfamethox/Trimeth 800/160 1 each PO BID #14 tablet 02/08/22 [Bactrim Ds] Fluconazole [Diflucan] 150 mg PO Q3D 6 Days #2 tablet 09/25/21 Naproxen 250 mg PO TID 5 Days #15 tablet 09/25/21 Phenazopyridine HCl [Pyridium] 100 mg PO TID PRN #15 tablet 09/25/21 cephALEXin [Keflex] 500 mg PO TID 5 Days #15 cap 09/25/21 Cefpodoxime Proxetil [Vantin] 100 mg PO Q12H #20 tablet 11/18/21 - Allergies Allergies/Adverse Reactions: Allergies Allergy/AdvReac Type Severity Reaction Status Date / Time No Known Drug Allergies Allergy Verified 11/18/21 14:55 - Social History Does the pt smoke?: No Smoking Status: Never smoker Does the pt drink ETOH?: Yes Does the pt have substance abuse?: No - Immunizations Immunizations are current?: No Immunizations: Other immun not current - POLST Patient has POLST: No PD ED PE NORMAL - HEENT HEENT: PERRL - Neck Neck: Supple, no meningeal sign, No adenopathy - Cardiac Cardiac: RRR, No murmur - Respiratory Respiratory: No respiratory distress - Abdomen Abdomen: Normal bowel sounds, Soft. No: Non tender (Mild suprapubic tenderness. No flank or CVA tenderness. No guarding or rebound) - Back Back: No CVA TTP, No spinal TTP - Derm Derm: Normal color, Warm and dry, No rash - Extremities Extremities: No deformity - Neuro Neuro: Alert and oriented X 3 Eye Opening: Spontaneous Motor: Obeys Commands Verbal: Oriented GCS Score: 15 Results - Vitals Vitals: Vital Signs - 24 hr 11/18/21 14:55 Temperature 36.7 C Heart Rate 84 Respiratory 18 Rate Blood Pressure 118/70 O2 Saturation 99 Oxygen O2 Source Room air - Labs Labs: Laboratory Tests 11/18/21 15:03 Urine Color YELLOW Urine Clarity CLEAR Urine pH 7.0 Ur Specific [place] 1.010 Urine Protein NEGATIVE Urine Glucose (UA) NEGATIVE Urine Ketones NEGATIVE Urine Occult Blood SMALL H Urine Nitrite NEGATIVE Urine Bilirubin NEGATIVE Urine Urobilinogen 0.2 (NORMAL) Ur Leukocyte Esterase MODERATE H Urine RBC 11-25 H Urine WBC >25 H Ur Squamous Epith Cells FEW Squamous Urine Bacteria Moderate H Ur Microscopic Review INDICATED Urine Culture Comments INDICATED Urine HCG, Qual NEGATIVE PD MEDICAL DECISION MAKING - ED course Complexity details: reviewed results, re-evaluated patient, considered differential, d/w patient ED course: 36-year-old female presents to the emergency department for evaluation of dysuria urgency frequency and suprapubic pain. Symptoms began about 24 hours ago. This does follow her most recent sexual encounter with her monogamous partner. They do not use condoms. She does have a history of recurrent urinary tract infections typically growing a pansensitive E. coli Enterococcus or Klebsiella. Last culture on November 02 grew pansensitive E. coli. Patient will be started on cefpodoxime. We will give a 10-day course. Advise close follow-up with primary care provider. Given frequency of recurrent and true urinary tract infections may benefit from referral to urology or discussion of empiric low maintenance antibiotics. Clinically patient appears well with out fevers flank pain or vomiting. Low suspicion for a sending infection. Departure - Departure Disposition: Home, Self Care Clinical Impression: Acute cystitis Qualifiers: Hematuria presence: without hematuria Qualified Code(s): N30.00 - Acute cystitis without hematuria Condition: Stable Record reviewed to determine appropriate education?: Yes Instructions: ED UTI Cystitis Female Prescriptions: Cefpodoxime Proxetil [Vantin] 100 mg PO Q12H #20 tablet Comments: Jennifer you are seen today for urinary tract infection symptoms. You do have a urinary tract infection. Your infections do seem to occur after sexual activity. Please make sure you always void immediately after intercourse. You may benefit from asking your partner to wear condoms. Showering before sexual activity can also help reduce Frequency of urinary tract infections in people that are prone to them. It is important that you do establish with a primary care doctor. You may benefit from referral to a urologist to determine if there is a anatomical reason why you get recurrent urinary tract infections. If at any point you develop fevers, have uncontrolled vomiting, severe pain or feel that the antibiotics do not improve your symptoms and please return immediately to the ER. Your prescription has been sent electronically to the [facility]
[2021-11-18 15:23] LABS: CLARITY,URINE CLEAR (CLEAR)
[2021-11-18 15:24] LABS: HCG UR QUAL NEGATIVE
[2021-11-18 15:26] LABS: BACTERIA,URINE Moderate /HPF (None Seen); SQUAMOUS EPITHELIAL CELL,UR FEW Squamous (<= Few); WBC,URINE >25 /HPF (0-5)
--- NOTE | 2021-11-20 11:15 | ED Physician Documentation ---
ED Addendum - Addendum Addendum: 11/20/21 11:14 Urine culture result showing Klebsiella pneumonia and Enterococcus faecalis. Both are sensitive to cephalosporins. In particular the Klebsiella is sensitive to cefepime so the Vantin should be good. The Enterococcus is sensitive to penicillins without cephalosporins being tested specifically. However there should be cross coverage. No change in antibiotics.
== END 2021-11-18 15:40 | disposition home or self-care (01) ==
LOC: ED 14:46
DX: N30.00 Acute cystitis without hematuria (principal); B96.1 Klebsiella pneumoniae [K. pneumoniae] as the cause of diseases classified elsewhere
CPT/HCPCS: 81001; 81003; 81025; 87077; 87086; 87181; 99282; 99283

== ENCOUNTER 2021-12-01 09:40 | Emergency (ER) | payer MEDICARE ==
--- OUTSIDE RECORDS SUMMARY | 2021-12-01 09:56 | EXTERNAL MEDICAL SUMMARY RPT | Continuity of Care Document ---
:1985 Author Organization [facility] Address [address] [place] [address] Phone Care Team Providers Name Role Phone Bryon Unavailable Unavailable Allergies No information. Encounters No information. Medications No information. Problems date description facility [id number] Other disturbances of skin sensation [facility] [id number] Personal history of urinary (tract) inf ections [facility] Procedures date description facility [id number] [facility] Results No information. Vital Signs date measurement value source [id number] respiration_rate 16 /min 20210914 heart_rate 87 /min 20210914 BP_systolic 110 mm[Hg] 20210914 BP_diastolic 74 mm[Hg]
[2021-12-01 10:25] LABS: BASOPHILS % (AUTO) 0.6 %; EOSINOPHILS % (AUTO) 0.1 %; HCT - HEMATOCRIT 39.1 % (37.0-47.0); LYMPHOCYTES # (AUTO) 0.9 10^3/uL (1.5-3.5); LYMPHOCYTES % (AUTO) 13.6 %; MEAN CORPUSCULAR HEMOGLOBIN 29.3 pg (27.0-31.0); MEAN CORPUSCULAR HGB CONC 33.2 g/dL (32.0-36.0); MEAN CORPUSCULAR VOLUME 88.1 fL (81.0-99.0); MEAN PLATELET VOLUME 9.6 fL (7.9-10.8); MONOCYTES # (AUTO) 0.3 10^3/uL (0.0-1.0); MONOCYTES % (AUTO) 3.8 %; NEUTROPHILS # (AUTO) 5.6 10^3/uL (1.5-6.6); NEUTROPHILS % (AUTO) 81.8 %; PLT - PLATELET COUNT 257 10^3/uL (130-450); RED BLOOD COUNT 4.44 10^6/uL (4.20-5.40); RED CELL DISTRIBUTION WIDTH 12.8 % (12.0-15.0); WHITE BLOOD COUNT 6.8 x10^3/uL (4.8-10.8)
[2021-12-01 10:28] LABS: BILIRUBIN,URINE NEGATIVE (NEGATIVE); GLUCOSE, URINE (UA) NEGATIVE (NEGATIVE); KETONES,URINE (UA) 40 mg/dL (NEGATIVE); LEUKOCYTE ESTERASE, URINE NEGATIVE (NEGATIVE); NITRITE,URINE NEGATIVE (NEGATIVE); OCCULT BLOOD,URINE LARGE (NEGATIVE); PROTEIN,URINE NEGATIVE (NEGATIVE); UROBILINOGEN,URINE 0.2 (NORMAL) E.U./dL (NORMAL)
[2021-12-01 10:32] LABS: CLARITY,URINE SL. CLOUDY (CLEAR); HCG UR QUAL NEGATIVE
[2021-12-01 10:35] LABS: BACTERIA,URINE Moderate /HPF (None Seen); RBC,URINE TNTC /HPF (0-5); SQUAMOUS EPITHELIAL CELL,UR MOD Squamous (<= Few); WBC,URINE 0-3 /HPF (0-5)
[2021-12-01 10:36] LABS: ALBUMIN 4.7 g/dL (3.2-5.5); ALBUMIN/GLOBULIN RATIO 1.6 (1.0-2.2); BILIRUBIN,TOTAL 1.3 mg/dL (0.2-1.0); CALCIUM 9.4 mg/dL (8.5-10.3); CREATININE 0.6 mg/dL (0.4-1.0); POTASSIUM 3.4 mmol/L (3.5-5.0); TOTAL PROTEIN 7.6 g/dL (6.7-8.2)
[2021-12-01] MEDS ORDERED: ONDANSETRON 4 MG/2 ML VIAL IVP STA (11:43)
--- NOTE | 2021-12-01 11:45 | ED Physician Documentation ---
History of Present Illness - Stated complaint Stated Complaint: FEMALE /N/V - Chief complaint Chief Complaint: Abd Pain - History obtained from History obtained from: Patient - Additonal information Additional information: The patient comes to the emergency department chief complaint of vaginal bleeding that started 2 days early. She states she is not known to be but that this is different than her normal periods, because she has a headache and vomiting also. She states she has a burning pain in her periumbilical area. She states it feels more like she is having a miscarriage or something else is wrong. Patient mentions several times that she is under a lot of stress at home and that this is probably not helping her symptoms. The patient denies any discharge prior to the vaginal bleeding. She was just treated for UTI last week, and finished the antibiotics some days ago. She denies any dysuria. No frequency. No fevers or chills. No respiratory symptoms. No sick contacts that she knows of. No other complaints at this time. Review of Systems Ten Systems: 10 systems reviewed and negative Constitutional: reports: Reviewed and negative Eyes: reports: Reviewed and negative Ears: reports: Reviewed and negative Nose: reports: Reviewed and negative Throat: reports: Reviewed and negative Cardiac: reports: Reviewed and negative Respiratory: reports: Reviewed and negative GI: reports: Abdominal Pain, Nausea, Vomiting : reports: Reviewed and negative Skin: reports: Reviewed and negative Musculoskeletal: reports: Reviewed and negative Neurologic: reports: Headache Psychiatric: reports: Reviewed and negative Endocrine: reports: Reviewed and negative Immunocompromised: reports: Reviewed and negative PD PAST MEDICAL HISTORY - Past Medical History Cardiovascular: None Respiratory: None Neuro: None Endocrine/Autoimmune: None 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 : Chronic bladder infection, Other HEENT: None Psych: Depression, Anxiety Musculoskeletal: None Derm: None - Past Surgical History Past Surgical History: No - Present Medications Home Medications: Ambulatory Orders Medication Instructions Recorded Confirmed diphenhydrAMINE [Benadryl] 25 - 50 mg ORAL TID PRN 05/13/21 06/19/21 Ciprofloxacin HCl [Cipro] 250 mg PO BID #10 tablet 06/19/21 Phenazopyridine HCl [Pyridium] 200 mg PO TID PRN #6 tablet 06/19/21 Naproxen 250 mg PO BID 7 Days #14 tablet 07/15/21 Saccharomyces Boulardii [Florastor] 500 mg PO BIDWM 7 Days #14 cap 07/15/21 cephALEXin [Keflex] 500 mg PO TID #20 cap 07/15/21 Phenazopyridine HCl [Pyridium] 200 mg PO TID PRN #6 tablet 08/12/21 Sulfamethox/Trimeth 800/160 1 each PO BID #14 tablet 08/12/21 [Bactrim Ds 800/160] Phenazopyridine HCl [Pyridium] 200 mg PO TID PRN #6 tablet 09/07/21 Sulfamethox/Trimeth 800/160 1 each PO BID #14 tablet 09/07/21 [Bactrim Ds] Fluconazole [Diflucan] 150 mg PO Q3D 6 Days #2 tablet 09/25/21 Naproxen 250 mg PO TID 5 Days #15 tablet 09/25/21 Phenazopyridine HCl [Pyridium] 100 mg PO TID PRN #15 tablet 09/25/21 cephALEXin [Keflex] 500 mg PO TID 5 Days #15 cap 09/25/21 Cefpodoxime Proxetil [Vantin] 100 mg PO Q12H #20 tablet 11/18/21 Ondansetron Odt [Zofran] 4 mg TL Q6H PRN #10 tablet 12/01/21 - Allergies Allergies/Adverse Reactions: Allergies Allergy/AdvReac Type Severity Reaction Status Date / Time No Known Drug Allergies Allergy Verified 12/01/21 09:55 - Social History Does the pt smoke?: No Smoking Status: Never smoker Does the pt drink ETOH?: Yes Does the pt have substance abuse?: No - Immunizations Immunizations are current?: No Immunizations: Other immun not current - POLST Patient has POLST: No PD ED PE NORMAL - Vitals Vital signs reviewed: Yes - General General: Alert and oriented X 3, No acute distress, Well developed/nourished, Other (Patient is well-appearing and nontoxic.) - HEENT HEENT: Atraumatic, PERRL, EOMI, Moist mucous membranes - Neck Neck: Supple, no meningeal sign - Cardiac Cardiac: RRR, No murmur, Strong equal pulses - Respiratory Respiratory: No respiratory distress, Clear bilaterally - Abdomen Abdomen: Soft, Non tender, Non distended - Derm Derm: Normal color, Warm and dry, No rash - Extremities Extremities: No deformity, No edema - Neuro Neuro: Alert and oriented X 3, 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, Normal speech - Psych Psych: Normal mood, Normal affect Results - Vitals Vitals: Vital Signs - 24 hr 12/01/21 09:51 Temperature 36.2 C L Heart Rate 71 Respiratory 16 Rate Blood Pressure 115/79 O2 Saturation 99 Oxygen O2 Source Room air - Labs Labs: Laboratory Tests 12/01/21 12/01/21 12/01/21 10:15 10:15 10:15 WBC 6.8 RBC 4.44 Hgb 13.0 Hct 39.1 MCV 88.1 MCH 29.3 MCHC 33.2 RDW 12.8 Plt Count 257 MPV 9.6 Neut # (Auto) 5.6 Lymph # (Auto) 0.9 L Wetzel # (Auto) 0.3 Eos # (Auto) 0.0 Baso # (Auto) 0.0 Absolute Nucleated RBC 0.00 Nucleated RBC % 0.0 Sodium 136 Potassium 3.4 L Chloride 100 L Carbon Dioxide 25 Anion Gap 11.0 BUN 9 Creatinine 0.6 Estimated GFR (MDRD) 112 Glucose 120 H Calcium 9.4 Total Bilirubin 1.3 H AST 18 ALT 17 Alkaline Phosphatase 34 L Total Protein 7.6 Albumin 4.7 Globulin 2.9 Albumin/Globulin Ratio 1.6 Lipase 34 Urine Color DARK YELLOW Urine Clarity SL. CLOUDY Urine pH 7.0 Ur Specific [place] 1.025 Urine Protein NEGATIVE Urine Glucose (UA) NEGATIVE Urine Ketones 40 H Urine Occult Blood LARGE H Urine Nitrite NEGATIVE Urine Bilirubin NEGATIVE Urine Urobilinogen 0.2 (NORMAL) Ur Leukocyte Esterase NEGATIVE Urine RBC TNTC H Urine WBC 0-3 Ur Squamous Epith Cells MOD Squamous H Urine Bacteria Moderate H Ur Microscopic Review INDICATED Urine Culture Comments NOT INDICATED Urine HCG, Qual 12/01/21 10:15 WBC RBC Hgb Hct MCV MCH MCHC RDW Plt Count MPV Neut # (Auto) Lymph # (Auto) Wetzel # (Auto) Eos # (Auto) Baso # (Auto) Absolute Nucleated RBC Nucleated RBC % Sodium Potassium Chloride Carbon Dioxide Anion Gap BUN Creatinine Estimated GFR (MDRD) Glucose Calcium Total Bilirubin AST ALT Alkaline Phosphatase Total Protein Albumin Globulin Albumin/Globulin Ratio Lipase Urine Color Urine Clarity Urine pH Ur Specific [place] Urine Protein Urine Glucose (UA) Urine Ketones Urine Occult Blood Urine Nitrite Urine Bilirubin Urine Urobilinogen Ur Leukocyte Esterase Urine RBC Urine WBC Ur Squamous Epith Cells Urine Bacteria Ur Microscopic Review Urine Culture Comments Urine HCG, Qual NEGATIVE PD MEDICAL DECISION MAKING - ED course Complexity details: reviewed results, re-evaluated patient, considered differential, d/w patient ED course: The patient's test was negative. Her labs were unremarkable. Her urinalysis was somewhat contaminated but no indication of a urinary tract infection. The patient overall actually appeared fairly well and her abdominal exam was benign. I gave her dose of Zofran through the IV and have written a prescription for the same. We have discussed the usual indications for return. Departure - Departure Disposition: 01 Home, Self Care Clinical Impression: Dysfunctional uterine bleeding Vomiting Qualifiers: Vomiting type: bilious vomiting Nausea presence: with nausea Qualified Code(s): R11.14 - Bilious vomiting Headache Qualifiers: Headache type: unspecified Headache chronicity pattern: acute headache Intractability: not intractable Qualified Code(s): R51.9 - Headache, unspecified Condition: Stable Instructions: ED Bleed Irregular Vaginal, ED Headache Tension, ED Nausea Vomiting Prescriptions: Ondansetron Odt [Zofran] 4 mg TL Q6H PRN #10 tablet PRN Reason: Nausea / Vomiting Comments: Your labs look great. Your urinalysis does not indicate any infection at this time. Your test is negative. Most likely, you have some disruption of your normal hormonal cycles from the stress that you have been under, and this can cause changes in your. Such as coming early or late, or the flow being heavier or bulk clerk. Most likely, your body will return to its normal cycle on its own. You may be having the vomiting and headache from the stress as well, though this could also be a viral illness, as there are a lot of people with similar symptoms coming in for care. Please take the nausea medication as needed. The prescription for this has been electronically transmitted to [facility] pharmacy in [place]
[2021-12-01 12:00] VITALS: BP 119/78
== END 2021-12-01 12:01 | disposition home or self-care (01) ==
LOC: ED 09:40
DX: N93.9 Abnormal uterine and vaginal bleeding, unspecified (principal); R11.14 Bilious vomiting; R51.9 Headache, unspecified
CPT/HCPCS: 36415; 80053; 81001; 81003; 81025; 83690; 85025; 87086; 96374; 99283

== ENCOUNTER 2021-12-11 08:00 | Outpatient (CLI) | payer MEDICARE | END 2021-12-11 23:59 | disposition home or self-care (01) | LOC: LAB.N 08:00 | PROVIDERS: ATTEND Nurse Practitioner | DX: R30.0 Dysuria (principal) | CPT/HCPCS: 87077; 87086; 87181 ==

== ENCOUNTER 2022-01-07 08:00 | Outpatient (CLI) | payer MEDICAID, MEDICARE | END 2022-01-07 23:59 | disposition home or self-care (01) | LOC: LAB.N 08:00 | PROVIDERS: ATTEND Family Medicine | DX: N39.0 Urinary tract infection, site not specified (principal) | CPT/HCPCS: 87086; 87181 ==

== ENCOUNTER 2022-02-02 08:00 | Outpatient (CLI) | payer MEDICARE ==
[2022-02-02 12:28] LABS: BILIRUBIN,URINE NEGATIVE (NEGATIVE); GLUCOSE, URINE (UA) NEGATIVE (NEGATIVE); KETONES,URINE (UA) NEGATIVE (NEGATIVE); LEUKOCYTE ESTERASE, URINE SMALL (NEGATIVE); NITRITE,URINE NEGATIVE (NEGATIVE); OCCULT BLOOD,URINE LARGE (NEGATIVE); PH,URINE 6.5 PH (5.0-7.5); PROTEIN,URINE NEGATIVE (NEGATIVE); UROBILINOGEN,URINE 0.2 (NORMAL) E.U./dL (NORMAL)
[2022-02-02 12:30] LABS: CLARITY,URINE CLEAR (CLEAR)
[2022-02-02 12:39] LABS: WBC,URINE 0-3 /HPF (0-5)
[2022-02-02 12:40] LABS: BACTERIA,URINE Rare /HPF (None Seen); RBC,URINE 0-5 /HPF (0-5); SQUAMOUS EPITHELIAL CELL,UR FEW Squamous (<= Few)
== END 2022-02-02 23:59 | disposition home or self-care (01) ==
LOC: LAB.N 08:00
PROVIDERS: ATTEND Emergency Medicine
DX: N39.0 Urinary tract infection, site not specified (principal)
CPT/HCPCS: 81001; 87086

== ENCOUNTER 2022-02-19 08:00 | Outpatient (CLI) | payer MEDICARE ==
[2022-02-19 22:23] LABS: CHLAMYDIA TRACHOMATIS DNA NEGATIVE (NEGATIVE); NEISSERIA GONORRHOEAE DNA NEGATIVE (NEGATIVE); TRICHOMONAS VAGINALIS DNA NEGATIVE (NEGATIVE)
== END 2022-02-19 23:59 | disposition home or self-care (01) ==
LOC: LAB.N 08:00
PROVIDERS: ATTEND Nurse Practitioner
DX: N39.0 Urinary tract infection, site not specified (principal)
CPT/HCPCS: 87077; 87086; 87181; 87491; 87591; 87661

== ENCOUNTER 2022-02-19 08:00 | Outpatient (CLI) | payer MEDICARE | END 2022-02-19 23:59 | disposition home or self-care (01) | LOC: LAB.N 08:00 | PROVIDERS: ATTEND Nurse Practitioner | DX: R30.0 Dysuria (principal) ==

== ENCOUNTER 2022-09-02 10:20 | Emergency (ER) | payer MEDICARE ==
[2022-09-02 10:27] VITALS: BP 109/71
[2022-09-02 10:51] LABS: BILIRUBIN,URINE NEGATIVE (NEGATIVE); GLUCOSE, URINE (UA) NEGATIVE (NEGATIVE); KETONES,URINE (UA) NEGATIVE (NEGATIVE); LEUKOCYTE ESTERASE, URINE SMALL (NEGATIVE); NITRITE,URINE NEGATIVE (NEGATIVE); OCCULT BLOOD,URINE SMALL (NEGATIVE); PROTEIN,URINE NEGATIVE (NEGATIVE); UROBILINOGEN,URINE 0.2 (NORMAL) E.U./dL (NORMAL)
[2022-09-02 10:52] LABS: CLARITY,URINE CLEAR (CLEAR); HCG UR QUAL NEGATIVE
[2022-09-02 11:06] LABS: BACTERIA,URINE Rare /HPF (None Seen); SQUAMOUS EPITHELIAL CELL,UR RARE Squamous (<= Few); WBC CLUMPS,URINE PRESENT; WBC,URINE >25 /HPF (0-5)
[2022-09-02] MEDS ORDERED: CEFPODOXIME PROXETIL 100 MG TABLET PO STA (11:29)
--- NOTE | 2022-09-02 11:32 | ED Physician Documentation ---
History of Present Illness - Stated complaint Stated Complaint: F GI - Chief complaint Chief Complaint: UTI - Additonal information Additional information: 37-year-old female presents emergency department for concerns that she has a UTI. She does report sexual activity within the last 2 days. She is unsure if her partner has been monogamous to her while she has been away helping care for her sister. She reports that this morning she began having dysuria, urgency and frequency. Does not feel like she fully empties her bladder. She has no flank pain fevers or vomiting. No history of pyelonephritis. Denies any history of STI though cannot remember the last time she was tested. 9 history obtained from patient. Reliable historian Review of Systems Constitutional: denies: Fever, Chills Throat: reports: Reviewed and negative Cardiac: reports: Reviewed and negative Respiratory: reports: Reviewed and negative GI: reports: Reviewed and negative : reports: Dysuria, Frequency. 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 : Chronic bladder infection, Other HEENT: None Psych: Depression, Anxiety Musculoskeletal: None Derm: None - Past Surgical History Past Surgical History: No - Present Medications Home Medications: Ambulatory Orders Medication Instructions Recorded Confirmed diphenhydrAMINE [Benadryl] 25 - 50 mg ORAL TID PRN 05/13/21 06/19/21 Ciprofloxacin HCl [Cipro] 250 mg PO BID #10 tablet 06/19/21 Phenazopyridine HCl [Pyridium] 200 mg PO TID PRN #6 tablet 06/19/21 Naproxen 250 mg PO BID 7 Days #14 tablet 07/15/21 Saccharomyces Boulardii [Florastor] 500 mg PO BIDWM 7 Days #14 cap 07/15/21 cephALEXin [Keflex] 500 mg PO TID #20 cap 07/15/21 Phenazopyridine HCl [Pyridium] 200 mg PO TID PRN #6 tablet 08/12/21 Sulfamethox/Trimeth 800/160 1 each PO BID #14 tablet 08/12/21 [Bactrim Ds 800/160] Phenazopyridine HCl [Pyridium] 200 mg PO TID PRN #6 tablet 09/07/21 Sulfamethox/Trimeth 800/160 1 each PO BID #14 tablet 09/07/21 [Bactrim Ds] Fluconazole [Diflucan] 150 mg PO Q3D 6 Days #2 tablet 09/25/21 Naproxen 250 mg PO TID 5 Days #15 tablet 09/25/21 Phenazopyridine HCl [Pyridium] 100 mg PO TID PRN #15 tablet 09/25/21 cephALEXin [Keflex] 500 mg PO TID 5 Days #15 cap 09/25/21 Cefpodoxime Proxetil [Vantin] 100 mg PO Q12H #20 tablet 11/18/21 Ondansetron Odt [Zofran] 4 mg TL Q6H PRN #10 tablet 12/01/21 Cefpodoxime Proxetil [Vantin] 100 mg PO Q12H #14 tablet 09/02/22 Phenazopyridine HCl [Pyridium] 200 mg PO TID PRN #6 tablet 09/02/22 - Allergies Allergies/Adverse Reactions: Allergies Allergy/AdvReac Type Severity Reaction Status Date / Time No Known Drug Allergies Allergy Verified 09/02/22 10:27 - Social History Does the pt smoke?: No Smoking Status: Never smoker Does the pt drink ETOH?: Yes Does the pt have substance abuse?: No - Immunizations Immunizations are current?: No Immunizations: Other immun not current - POLST Patient has POLST: No PD ED PE NORMAL - General General: Alert and oriented X 3, No acute distress - HEENT HEENT: PERRL - Neck Neck: Supple, no meningeal sign, No adenopathy - Cardiac Cardiac: RRR, No murmur - Respiratory Respiratory: No respiratory distress, Clear bilaterally - Abdomen Abdomen: Normal bowel sounds, Soft. No: Non tender (Mild suprapubic tenderness without guarding or rebound. No lower pelvic pain elicited. No flank or CVA tenderness.) - Back Back: No CVA TTP - Derm Derm: Warm and dry - Extremities Extremities: No deformity - Neuro Neuro: Alert and oriented X 3 Results - Vitals Vitals: Vital Signs - 24 hr 09/02/22 10:25 Temperature 36.8 C Heart Rate 78 Respiratory 14 Rate Blood Pressure 109/71 O2 Saturation 100 Oxygen O2 Source Room air - Labs Labs: Laboratory Tests 09/02/22 10:44 Urine Color YELLOW Urine Clarity CLEAR Urine pH 7.0 Ur Specific [place] 1.010 Urine Protein NEGATIVE Urine Glucose (UA) NEGATIVE Urine Ketones NEGATIVE Urine Occult Blood SMALL H Urine Nitrite NEGATIVE Urine Bilirubin NEGATIVE Urine Urobilinogen 0.2 (NORMAL) Ur Leukocyte Esterase SMALL H Urine RBC 6-10 H Urine WBC >25 H Urine WBC Clumps PRESENT Ur Squamous Epith Cells RARE Squamous Urine Bacteria Rare Ur Microscopic Review INDICATED Urine Culture Comments INDICATED Urine HCG, Qual NEGATIVE PD Medical Decision Making - ED course Complexity details: reviewed results, considered differential, d/w patient ED course: Well-appearing 37-year-old female presents emergency department for 24 hours of dysuria urgency frequency and burning. She recently engaged in sexual intercourse with her partner whom she been away from for a bit to care for her sister. She is unsure if her partner has been monogamous. I did offer screening for chlamydia and gonorrhea through the urine today which she accepted. Her urine however is frankly suggestive of acute cystitis therefore the patient will be started on Vantin. Previous microbiology data indicates E. coli as well as Klebsiella as frequent markers of infection in her urine that have been sensitive to a cephalosporin. Clinically patient has no fevers, flank pain or vomiting. My suspicion for an a sending urinary tract infection is rather low. She will be discharged with appropriate antibiotic prescription as well as Pyridium. We discussed the usual emergent return precautions for worsening symptoms. I have encouraged patient to have a full battery of STI screening through her primary care provider and/or [facility] Departure - Departure Disposition: 01 Home, Self Care Clinical Impression: Acute cystitis Qualifiers: Hematuria presence: without hematuria Qualified Code(s): N30.00 - Acute cystitis without hematuria Condition: Stable Record reviewed to determine appropriate education?: Yes Instructions: ED UTI Cystitis Female Prescriptions: Phenazopyridine HCl [Pyridium] 200 mg PO TID PRN #6 tablet PRN Reason: dysuria Cefpodoxime Proxetil [Vantin] 100 mg PO Q12H #14 tablet Comments: Gertrude doherty came to the emergency department today because you have concerns you do have a urinary tract infection. This followed recent sexual activity. Your urine today is suggestive of infection and for this we will start you on an antibiotic called Vantin. You will take this twice daily for the next week. This has been sent to the [facility] in [place]. We have also started you on Pyridium, this is a medication that is an antispasmodic and should help with the urgency and frequency. It will turn your urine bright orange. We are screening your urine for chlamydia and gonorrhea. We will notify you if this test is positive. I encourage you to have a full panel of STD screening through your primary care provider or [facility]. If you have concerned that your partner is having sex outside the relationship you may encourage them to have full STD screening as well. Return to the ER if you have any concerns that your symptoms or not improving with the antibiotics, develop flank pain, high fevers uncontrolled vomiting
[2022-09-02 15:21] LABS: CHLAMYDIA TRACHOMATIS DNA NEGATIVE (NEGATIVE); NEISSERIA GONORRHOEAE DNA NEGATIVE (NEGATIVE); TRICHOMONAS VAGINALIS DNA NEGATIVE (NEGATIVE)
== END 2022-09-02 11:47 | disposition home or self-care (01) ==
LOC: ED 10:20
DX: N30.00 Acute cystitis without hematuria (principal); Z11.3 Encounter for screening for infections with a predominantly sexual mode of transmission
CPT/HCPCS: 81001; 81025; 87086; 87181; 87491; 87591; 87661; 99283; A9270; 81003

== ENCOUNTER 2022-09-13 15:58 | Emergency (ER) | payer MEDICARE ==
[2022-09-13 16:07] VITALS: BP 117/77
[2022-09-13 16:21] LABS: BILIRUBIN,URINE NEGATIVE (NEGATIVE); GLUCOSE, URINE (UA) NEGATIVE (NEGATIVE); KETONES,URINE (UA) NEGATIVE (NEGATIVE); LEUKOCYTE ESTERASE, URINE NEGATIVE (NEGATIVE); NITRITE,URINE POSITIVE (NEGATIVE); OCCULT BLOOD,URINE LARGE (NEGATIVE); PROTEIN,URINE NEGATIVE (NEGATIVE); UROBILINOGEN,URINE 0.2 (NORMAL) E.U./dL (NORMAL)
[2022-09-13 16:23] LABS: CLARITY,URINE CLEAR (CLEAR); HCG UR QUAL NEGATIVE
[2022-09-13 16:30] LABS: BACTERIA,URINE Few /HPF (None Seen); EPITHELIAL CELLS,UR FEW Transitional /HPF (<= Few); SQUAMOUS EPITHELIAL CELL,UR FEW Squamous (<= Few); WBC,URINE 0-3 /HPF (0-5)
[2022-09-13] MEDS ORDERED: SULFAMETH/TRIMETH DS 800/160 MG TABLET PO STA (17:43)
--- NOTE | 2022-09-13 17:45 | ED Physician Documentation ---
History of Present Illness - Stated complaint Stated Complaint: FEMALE - Chief complaint Chief Complaint: UTI - History obtained from History obtained from: Patient - Additonal information Additional information: The patient comes to the emergency department chief complaint of dysuria that started yesterday. She has a history of frequent UTIs and States this feels similar. She just finished treatment 3 weeks ago for one. No fevers or chills. No nausea or vomiting. She is on her period currently. 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 : Chronic bladder infection, Other HEENT: None Psych: Depression, Anxiety Musculoskeletal: None Derm: None - Past Surgical History Past Surgical History: No - Present Medications Home Medications: Ambulatory Orders Medication Instructions Recorded Confirmed Phenazopyridine HCl [Pyridium] 200 mg PO TID PRN #6 tablet 09/02/22 09/13/22 Phenazopyridine HCl [Pyridium] 200 mg PO TID PRN #6 tablet 09/13/22 Sulfamethox/Trimeth 800/160 1 each PO BID #14 tablet 09/13/22 [Bactrim Ds 800/160] - Allergies Allergies/Adverse Reactions: Allergies Allergy/AdvReac Type Severity Reaction Status Date / Time No Known Drug Allergies Allergy Verified 09/13/22 16:07 - Social History Does the pt smoke?: No Smoking Status: Never smoker Does the pt drink ETOH?: Yes Does the pt have substance abuse?: No - Immunizations Immunizations are current?: No Immunizations: Other immun not current - POLST Patient has POLST: No PD ED PE NORMAL - Vitals Vital signs reviewed: Yes - General General: Alert and oriented X 3, No acute distress, Well developed/nourished - HEENT HEENT: Atraumatic, PERRL, EOMI, Moist mucous membranes - Neck Neck: Supple, no meningeal sign - Cardiac Cardiac: RRR, No murmur, Strong equal pulses - Respiratory Respiratory: No respiratory distress, Clear bilaterally - Abdomen Abdomen: Soft, Non tender, Non distended - Derm Derm: Warm and dry - Extremities Extremities: No deformity - Neuro Neuro: Alert and oriented X 3 - Psych Psych: Normal mood, Normal affect Results - Vitals Vitals: Vital Signs - 24 hr 09/13/22 16:02 Temperature 36.9 C Heart Rate 87 Respiratory 16 Rate Blood Pressure 117/77 O2 Saturation 98 Oxygen O2 Source Room air - Labs Labs: Laboratory Tests 09/13/22 14:15 Urine Color YELLOW Urine Clarity CLEAR Urine pH 6.0 Ur Specific [place] <=1.005 Urine Protein NEGATIVE Urine Glucose (UA) NEGATIVE Urine Ketones NEGATIVE Urine Occult Blood LARGE H Urine Nitrite POSITIVE H Urine Bilirubin NEGATIVE Urine Urobilinogen 0.2 (NORMAL) Ur Leukocyte Esterase NEGATIVE Urine RBC 6-10 H Urine WBC 0-3 Ur Epithelial Cells FEW Transitional Ur Squamous Epith Cells FEW Squamous Urine Bacteria Few Ur Microscopic Review INDICATED Urine Culture Comments INDICATED Urine HCG, Qual NEGATIVE PD Medical Decision Making - ED course Complexity details: reviewed results, re-evaluated patient, considered differential, d/w patient ED course: Urinalysis was found to be positive for infection the patient was started on antibiotics in the emergency department. Prescription has been sent for the same. We have discussed home management of the symptoms as well as usual indications for return. Departure - Departure Disposition: 01 Home, Self Care Clinical Impression: Urinary tract infection Qualifiers: Urinary tract infection type: acute cystitis Hematuria presence: with hematuria Qualified Code(s): N30.01 - Acute cystitis with hematuria Condition: Stable Instructions: ED UTI Cystitis Female Prescriptions: Sulfamethox/Trimeth 800/160 [Bactrim Ds 800/160] 1 each PO BID #14 tablet Phenazopyridine HCl [Pyridium] 200 mg PO TID PRN #6 tablet PRN Reason: dysuria Comments: You have been started on antibiotics here in the emergency department. A prescription for antibiotics and the medicine for the discomfort in your bladder has been electronically transmitted to the [facility] pharmacy in [place] at your request. Please drink plenty of fluids and take your medications as directed, until the course is complete. Discharge Date/Time: 09/13/22 18:02
== END 2022-09-13 18:02 | disposition home or self-care (01) ==
LOC: ED 15:58
DX: N30.01 Acute cystitis with hematuria (principal); Z87.440 Personal history of urinary (tract) infections
CPT/HCPCS: 81001; 81025; 87086; 87181; 99283; A9270; 81003

== ENCOUNTER 2022-10-24 03:32 | Emergency (ER) | payer MEDICARE ==
[2022-10-24 03:43] VITALS: BP 123/78
--- NOTE | 2022-10-24 03:52 | ED Physician Documentation ---
PD HPI FEMALE - Stated complaint Stated Complaint: FEMALE - Chief complaint Chief Complaint: UTI - History obtained from History obtained from: Patient - History of Present Illness Timing - onset: Enter time (02:00), Today Timing - details: Abrupt onset - Additional information Additional information: HPI from patient. Patient complains of urinary frequency, burning dysuria, sensation of incomplete voiding. The symptoms started at approximately 2 AM this morning. She says the symptoms are very similar to symptoms associated with her many previous urinary tract infections. Patient denies fever. Denies back pain. Review of Systems Constitutional: denies: Fever GI: denies: Abdominal Pain : reports: Dysuria, Frequency. 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 : Chronic bladder infection, Other HEENT: None Psych: Depression, Anxiety Musculoskeletal: None Derm: None - Past Surgical History Past Surgical History: No - Present Medications Home Medications: Ambulatory Orders Medication Instructions Recorded Confirmed Ciprofloxacin HCl [Cipro] 500 mg PO BID #10 tablet 10/24/22 Phenazopyridine HCl [Pyridium] 200 mg PO TID PRN #6 tablet 10/24/22 - Allergies Allergies/Adverse Reactions: Allergies Allergy/AdvReac Type Severity Reaction Status Date / Time No Known Drug Allergies Allergy Verified 10/24/22 03:40 - Social History Does the pt smoke?: No Smoking Status: Never smoker Does the pt drink ETOH?: Yes Does the pt have substance abuse?: No - Immunizations Immunizations are current?: No Immunizations: Other immun not current - POLST Patient has POLST: No PD ED PE NORMAL - Vitals Vital signs reviewed: Yes - General General: Alert and oriented X 3, No acute distress, Well developed/nourished - Abdomen Abdomen: Soft, Non tender - Back Back: No CVA TTP Results - Vitals Vitals: Vital Signs - 24 hr 10/24/22 03:40 Heart Rate 72 Respiratory 16 Rate Blood Pressure 123/78 O2 Saturation 100 Oxygen O2 Source Room air - Labs Labs: Laboratory Tests 10/24/22 10/24/22 03:47 03:47 Urine Color YELLOW Urine Clarity CLEAR Urine pH 6.0 Ur Specific [place] <=1.005 Urine Protein NEGATIVE Urine Glucose (UA) NEGATIVE Urine Ketones NEGATIVE Urine Occult Blood SMALL H Urine Nitrite NEGATIVE Urine Bilirubin NEGATIVE Urine Urobilinogen 0.2 (NORMAL) Ur Leukocyte Esterase TRACE H Urine RBC 3 Urine WBC 4-5 Ur Squamous Epith Cells NONE SEEN Urine Bacteria Rare Ur Microscopic Review INDICATED Urine Culture Comments INDICATED Urine HCG, Qual NEGATIVE PD Medical Decision Making - ED course Complexity details: reviewed results, considered differential, d/w patient ED course: Presents with symptoms suggestive of a urinary tract infection. Her urinalysis is with minimal abnormalities, but, considering her many previous UTIs (multiple documented positive urine cultures are noted on Drawn to Scale as recently as last month) and the similarity in symptoms to these previous UTIs, will treat with antibiotic. Previous urine cultures have grown marquis-sensitive e. coli and klebsiella with some resistances and intermediate sensitivities; I note that both of these organisms were sensitive to justen quinolones, and thus patient is given Cipro 500 mg p.o. in the emergency department along with 200 mg of Pyridium, and prescriptions for both are electronically submitted to [facility] pharmacy in [place]. Departure - Departure Disposition: Home, Self Care Clinical Impression: Urinary tract infection Qualifiers: Urinary tract infection type: acute cystitis Hematuria presence: without hematuria Qualified Code(s): N30.00 - Acute cystitis without hematuria Condition: Good Instructions: ED UTI Cystitis Female Prescriptions: Ciprofloxacin HCl [Cipro] 500 mg PO BID #10 tablet Phenazopyridine HCl [Pyridium] 200 mg PO TID PRN #6 tablet PRN Reason: dysuria Comments: You are given the first dose of an antibiotic (Cipro) in the emergency department, along with the first dose of Pyridium (medication that can help with the symptoms of urinary tract infection). Prescriptions for both these medications have been electronically submitted to the [facility] pharmacy in [place]. Discharge Date/Time: 10/24/22 04:45
[2022-10-24 03:57] LABS: BILIRUBIN,URINE NEGATIVE (NEGATIVE); GLUCOSE, URINE (UA) NEGATIVE (NEGATIVE); KETONES,URINE (UA) NEGATIVE (NEGATIVE); LEUKOCYTE ESTERASE, URINE TRACE (NEGATIVE); NITRITE,URINE NEGATIVE (NEGATIVE); OCCULT BLOOD,URINE SMALL (NEGATIVE); PROTEIN,URINE NEGATIVE (NEGATIVE); UROBILINOGEN,URINE 0.2 (NORMAL) E.U./dL (NORMAL)
[2022-10-24 04:00] LABS: CLARITY,URINE CLEAR (CLEAR); HCG UR QUAL NEGATIVE
[2022-10-24 04:06] LABS: BACTERIA,URINE Rare /HPF (None Seen); RBC,URINE 3 /HPF (0-5); SQUAMOUS EPITHELIAL CELL,UR NONE SEEN (<= Few)
[2022-10-24] MEDS ORDERED: PHENAZOPYRIDINE 100 MG TABLET PO STA (04:42)
[2022-10-24] MEDS ORDERED: CIPROFLOXACIN 250 MG TABLET PO STA (04:42)
== END 2022-10-24 04:45 | disposition home or self-care (01) ==
LOC: ED 03:32
DX: N30.00 Acute cystitis without hematuria (principal)
CPT/HCPCS: 81001; 81025; 87086; 99283; A9270; 81003; 87181

== ENCOUNTER 2022-12-04 16:26 | Emergency (ER) | payer MEDICAID, MEDICARE ==
[2022-12-04 16:34] VITALS: BP 116/73
[2022-12-04 16:47] LABS: BILIRUBIN,URINE NEGATIVE (NEGATIVE); GLUCOSE, URINE (UA) NEGATIVE (NEGATIVE); KETONES,URINE (UA) NEGATIVE (NEGATIVE); LEUKOCYTE ESTERASE, URINE SMALL (NEGATIVE); NITRITE,URINE NEGATIVE (NEGATIVE); OCCULT BLOOD,URINE SMALL (NEGATIVE); PROTEIN,URINE NEGATIVE (NEGATIVE); UROBILINOGEN,URINE 0.2 (NORMAL) E.U./dL (NORMAL)
[2022-12-04 16:48] LABS: CLARITY,URINE CLEAR (CLEAR)
[2022-12-04 16:51] LABS: HCG UR QUAL NEGATIVE
--- NOTE | 2022-12-04 16:56 | ED Physician Documentation ---
History of Present Illness - Stated complaint Stated Complaint: FEMALE GI - Chief complaint Chief Complaint: UTI - History obtained from History obtained from: Patient - Additonal information Additional information: The patient comes to the emergency department with chief complaint of dysuria. Patient has a history of recurrent UTIs and states that this feels the same. She denies any fevers or chills. She has not had any nausea or vomiting. The patient states that she has had a little diarrhea and that she "has heard that the urine and the diarrhea come out close to each other." She is wondering if this is why she has gotten a urinary tract infection. She states that she does not think she could be . She is not a diabetic. No other complaints at this time. 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 : Chronic bladder infection, Other HEENT: None Psych: Depression, Anxiety Musculoskeletal: None Derm: None - Past Surgical History Past Surgical History: No - Present Medications Home Medications: Ambulatory Orders Medication Instructions Recorded Confirmed Sulfamethox/Trimeth 800/160 1 each PO BID #14 tablet 12/04/22 [Bactrim Ds 800/160] - Allergies Allergies/Adverse Reactions: Allergies Allergy/AdvReac Type Severity Reaction Status Date / Time No Known Drug Allergies Allergy Verified 12/04/22 16:33 - Social History Does the pt smoke?: No Smoking Status: Never smoker Does the pt drink ETOH?: Yes Does the pt have substance abuse?: No - Immunizations Immunizations are current?: No Immunizations: Other immun not current - POLST Patient has POLST: No PD ED PE NORMAL - Vitals Vital signs reviewed: Yes - General General: Alert and oriented X 3, No acute distress, Well developed/nourished - HEENT HEENT: Atraumatic, PERRL, EOMI, Moist mucous membranes - Neck Neck: Supple, no meningeal sign - Cardiac Cardiac: RRR, No murmur, Strong equal pulses - Respiratory Respiratory: No respiratory distress, Clear bilaterally - Abdomen Abdomen: Soft, Non tender, Non distended - Derm Derm: Normal color, Warm and dry, No rash - Extremities Extremities: No deformity - Neuro Neuro: Alert and oriented X 3 - Psych Psych: Normal mood, Normal affect Results - Vitals Vitals: Vital Signs - 24 hr 12/04/22 16:30 Temperature 36.5 C Heart Rate 80 Respiratory 16 Rate Blood Pressure 116/73 O2 Saturation 94 Oxygen O2 Source Room air - Labs Labs: Laboratory Tests 12/04/22 16:34 Urine Color YELLOW Urine Clarity CLEAR Urine pH 6.0 Ur Specific [place] <=1.005 Urine Protein NEGATIVE Urine Glucose (UA) NEGATIVE Urine Ketones NEGATIVE Urine Occult Blood SMALL H Urine Nitrite NEGATIVE Urine Bilirubin NEGATIVE Urine Urobilinogen 0.2 (NORMAL) Ur Leukocyte Esterase SMALL H Urine RBC 0-5 Urine WBC 6-10 H Ur Squamous Epith Cells RARE Squamous Urine Bacteria Few Ur Microscopic Review INDICATED Urine Culture Comments INDICATED Urine HCG, Qual NEGATIVE PD Medical Decision Making - ED course Complexity details: reviewed results, re-evaluated patient, considered differential, d/w patient ED course: The patient's urinalysis was positive. She was started on Bactrim here and a prescription for the same was electronically transmitted to [facility] in [place]. We have discussed the usual indications for return Departure - Departure Disposition: 01 Home, Self Care Clinical Impression: Urinary tract infection Qualifiers: Urinary tract infection type: acute cystitis Hematuria presence: without hematuria Qualified Code(s): N30.00 - Acute cystitis without hematuria Condition: Stable Instructions: ED UTI Cystitis Female Prescriptions: Sulfamethox/Trimeth 800/160 [Bactrim Ds 800/160] 1 each PO BID #14 tablet Comments: Your urinalysis is positive for infection. You been given your first dose of antibiotics here and a prescription for the same has been electronically transmitted to [facility] in [place]. Please take all of the antibiotics as directed. Please follow-up with your primary care physician for further concerns.
[2022-12-04 17:00] LABS: BACTERIA,URINE Few /HPF (None Seen); RBC,URINE 0-5 /HPF (0-5); SQUAMOUS EPITHELIAL CELL,UR RARE Squamous (<= Few)
[2022-12-04] MEDS ORDERED: SULFAMETH/TRIMETH DS 800/160 MG TABLET PO STA (17:12)
== END 2022-12-04 17:20 | disposition home or self-care (01) ==
LOC: ED 16:26
DX: N30.00 Acute cystitis without hematuria (principal); Z87.440 Personal history of urinary (tract) infections
CPT/HCPCS: 81001; 81025; 87086; 87181; 99283; A9270; 81003

== ENCOUNTER 2023-02-05 15:04 | Emergency (ER) | payer MEDICARE ==
[2023-02-05 15:19] VITALS: BP 112/79
[2023-02-05] MEDS ORDERED: IBUPROFEN 600 MG TABLET PO STA (15:39)
--- NOTE | 2023-02-05 15:39 | ED Physician Documentation ---
History of Present Illness - Stated complaint Stated Complaint: FMALE /PX - Chief complaint Chief Complaint: UTI - History obtained from History obtained from: Patient - Additonal information Additional information: 37-year-old woman with recurrent UTIs. Last was a couple of months ago. Saw urologist she thinks about a year ago without specific cause for frequent UTIs. Started develop low back pain and dysuria today. No clear fevers, but she thinks she may have had a fever last night. 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 : Chronic bladder infection, Other HEENT: None Psych: Depression, Anxiety Musculoskeletal: None Derm: None - Past Surgical History Past Surgical History: No - Present Medications Home Medications: Ambulatory Orders Medication Instructions Recorded Confirmed Sulfamethox/Trimeth 800/160 1 each PO BID #14 tablet 12/04/22 [Bactrim Ds 800/160] Phenazopyridine HCl [Pyridium] 200 mg PO TID PRN #6 tablet 02/05/23 Sulfamethox/Trimeth 800/160 1 each PO BID #10 tablet 02/05/23 [Bactrim Ds 800/160] - Allergies Allergies/Adverse Reactions: Allergies Allergy/AdvReac Type Severity Reaction Status Date / Time No Known Drug Allergies Allergy Verified 12/04/22 16:33 - Social History Does the pt smoke?: No Smoking Status: Never smoker Does the pt drink ETOH?: Yes Does the pt have substance abuse?: No - Immunizations Immunizations are current?: No Immunizations: Other immun not current - POLST Patient has POLST: No PD ED PE NORMAL - Vitals Vital signs reviewed: Yes - General General: Alert and oriented X 3, No acute distress - Abdomen Abdomen: Soft, Non tender - Back Back: No CVA TTP - Neuro Neuro: Alert and oriented X 3, Normal speech Results - Vitals Vitals: Vital Signs - 24 hr 02/05/23 15:10 Temperature 36.6 C Heart Rate 80 Respiratory 16 Rate Blood Pressure 112/79 O2 Saturation 100 Oxygen O2 Source Room air - Labs Labs: Laboratory Tests 02/05/23 15:25 Urine Color YELLOW Urine Clarity HAZY Urine pH 5.5 Ur Specific [place] 1.025 Urine Protein NEGATIVE Urine Glucose (UA) NEGATIVE Urine Ketones NEGATIVE Urine Occult Blood MODERATE H Urine Nitrite NEGATIVE Urine Bilirubin NEGATIVE Urine Urobilinogen 0.2 (NORMAL) Ur Leukocyte Esterase NEGATIVE Urine RBC 11-25 H Urine WBC 6-10 H Ur Squamous Epith Cells FEW Squamous Urine Bacteria Few Ur Microscopic Review INDICATED Urine Culture Comments NOT INDICATED Urine HCG, Qual NEGATIVE Departure - Departure Disposition: 01 Home, Self Care Clinical Impression: Cystitis Condition: Good Instructions: ED UTI Cystitis Female Follow-Up: Dario Alvarez MD [Provider Admit Priv/Credential] - Prescriptions: Sulfamethox/Trimeth 800/160 [Bactrim Ds 800/160] 1 each PO BID #10 tablet Phenazopyridine HCl [Pyridium] 200 mg PO TID PRN #6 tablet PRN Reason: dysuria Comments: Reasonable to follow-up with the new urologist in [facility] for second opinion on your frequent UTIs. We will culture your urine, the results should be done in 48-72 hours. If an antibiotic change is necessary we will call you. Return if worse in the meantime, especially if you develop increasing flank pain, fevers, or cannot keep down the medication.
[2023-02-05 15:47] LABS: BILIRUBIN,URINE NEGATIVE (NEGATIVE); GLUCOSE, URINE (UA) NEGATIVE (NEGATIVE); KETONES,URINE (UA) NEGATIVE (NEGATIVE); LEUKOCYTE ESTERASE, URINE NEGATIVE (NEGATIVE); NITRITE,URINE NEGATIVE (NEGATIVE); OCCULT BLOOD,URINE MODERATE (NEGATIVE); PH,URINE 5.5 PH (5.0-7.5); PROTEIN,URINE NEGATIVE (NEGATIVE); UROBILINOGEN,URINE 0.2 (NORMAL) E.U./dL (NORMAL)
[2023-02-05 15:55] LABS: CLARITY,URINE HAZY (CLEAR)
[2023-02-05 15:56] LABS: HCG UR QUAL NEGATIVE
[2023-02-05 16:07] LABS: BACTERIA,URINE Few /HPF (None Seen); SQUAMOUS EPITHELIAL CELL,UR FEW Squamous (<= Few)
[2023-02-05] MEDS ORDERED: PHENAZOPYRIDINE 100 MG TABLET PO STA (16:08)
[2023-02-05] MEDS ORDERED: SULFAMETH/TRIMETH DS 800/160 MG TABLET PO STA (16:08)
== END 2023-02-05 16:20 | disposition home or self-care (01) ==
LOC: ED 15:04
DX: N30.90 Cystitis, unspecified without hematuria (principal); Z87.440 Personal history of urinary (tract) infections
CPT/HCPCS: 81001; 81025; 87086; 87181; 99283; A9270; 81003

== ENCOUNTER 2023-05-07 14:59 | Emergency (ER) | payer MEDICAID, MEDICARE ==
[2023-05-07 15:04] VITALS: BP 120/63; O2SAT 97
[2023-05-07] MEDS ORDERED: cephALEXin 250 MG CAPSULE PO STA (15:14)
--- NOTE | 2023-05-07 15:19 | ED Physician Documentation ---
History of Present Illness - Stated complaint Stated Complaint: - Chief complaint Chief Complaint: UTI - Additonal information Additional information: 37-year-old female here for evaluation of acute dysuria urgency frequency and sensation of incomplete bladder emptying. Symptoms began last night. No fevers or vomiting. She does report some mild low back pain. She did take Azo prior to arrival. Has a history of UTI and this feels similar. 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 : Chronic bladder infection, Other HEENT: None Psych: Depression, Anxiety Musculoskeletal: None Derm: None - Past Surgical History Past Surgical History: No - Present Medications Home Medications: Ambulatory Orders Medication Instructions Recorded Confirmed cephALEXin [Keflex] 500 mg PO Q6H #14 cap 05/07/23 - Allergies Allergies/Adverse Reactions: Allergies Allergy/AdvReac Type Severity Reaction Status Date / Time No Known Drug Allergies Allergy Verified 05/07/23 15:01 - Social History Does the pt smoke?: No Smoking Status: Never smoker Does the pt drink ETOH?: Yes Does the pt have substance abuse?: No - Immunizations Immunizations are current?: No Immunizations: Other immun not current - POLST Patient has POLST: No PD ED PE NORMAL - General General: Alert and oriented X 3, No acute distress - Cardiac Cardiac: RRR, No murmur - Respiratory Respiratory: No respiratory distress, Clear bilaterally - Abdomen Abdomen: Normal bowel sounds, Soft, Non tender Results - Vitals Vitals: Vital Signs - 24 hr 05/07/23 15:01 Temperature 36.8 C Heart Rate 102 H Respiratory 16 Rate Blood Pressure 120/63 O2 Saturation 97 Oxygen O2 Source Room air - Labs Labs: Laboratory Tests 05/07/23 05/07/23 15:10 15:10 Urine Color DK. ORANGE Urine Clarity HAZY Urine pH 5.5 Ur Specific [place] <=1.005 Urine Protein Urine Glucose (UA) Urine Ketones NEGATIVE Urine Occult Blood NEGATIVE Urine Nitrite POSITIVE H Urine Bilirubin NEGATIVE Urine Urobilinogen Ur Leukocyte Esterase TRACE H Ur Microscopic Review INDICATED Urine Culture Comments Not Reportable Urine HCG, Qual NEGATIVE PD Medical Decision Making - ED course Complexity details: reviewed results, re-evaluated patient, d/w patient ED course: 37-year-old female here for acute dysuria urgency frequency and sensation of incomplete bladder emptying. Symptoms began last night. She did take Azo prior to arrival. Abdominal exam was benign. No fever or hypotension here in the ER. Urinalysis nitrite positive though some of the values are clouded by presence of Pyridium. Given history and symptoms it is reasonable to treat with antibiotics for acute cystitis. Discussed routine care measures as well as the usual emergent return precautions. No evidence of a sending infection or pyelonephritis on exam today. Departure - Departure Disposition: Home, Self Care Clinical Impression: Acute cystitis Qualifiers: Hematuria presence: without hematuria Qualified Code(s): N30.00 - Acute cystitis without hematuria Condition: Stable Record reviewed to determine appropriate education?: Yes Instructions: ED UTI Cystitis Female Prescriptions: cephALEXin [Keflex] 500 mg PO Q6H #14 cap Comments: Jennifer you came to the ED because you have been having some pain and frequency when you pee. Urine suggests early infection. I have sent a prescription to the [facility] pharmacy for Keflex which she will take twice daily for the next week. Return to the ER if you find that you are having any new or worsening symptoms however I would expect improvement in symptoms after the first 2-3 doses of medications.
[2023-05-07 15:21] LABS: KETONES,URINE (UA) NEGATIVE (NEGATIVE); LEUKOCYTE ESTERASE, URINE TRACE (NEGATIVE); NITRITE,URINE POSITIVE (NEGATIVE); OCCULT BLOOD,URINE NEGATIVE (NEGATIVE); PH,URINE 5.5 PH (5.0-7.5)
[2023-05-07 15:32] LABS: BILIRUBIN,URINE NEGATIVE (NEGATIVE); CLARITY,URINE HAZY (CLEAR); ICTOTEST,URINE NEGATIVE
[2023-05-07 15:37] LABS: HCG UR QUAL NEGATIVE
[2023-05-07 15:38] LABS: RBC,URINE 0-5 /HPF (0-5); SQUAMOUS EPITHELIAL CELL,UR FEW Squamous (<= Few)
[2023-05-07 15:39] LABS: BACTERIA,URINE Moderate /HPF (None Seen)
== END 2023-05-07 15:54 | disposition home or self-care (01) ==
LOC: ED 14:59
DX: N30.00 Acute cystitis without hematuria (principal)
CPT/HCPCS: 81001; 81025; 87086; 99283; A9270; 81003; 87077; 87181

== ENCOUNTER 2023-07-23 07:51 | Emergency (ER) | payer MEDICAID, MEDICARE ==
[2023-07-23 08:35] VITALS: BP 119/80; O2SAT 94
[2023-07-23 09:04] LABS: BILIRUBIN,URINE NEGATIVE (NEGATIVE); GLUCOSE, URINE (UA) NEGATIVE (NEGATIVE); KETONES,URINE (UA) NEGATIVE (NEGATIVE); LEUKOCYTE ESTERASE, URINE SMALL (NEGATIVE); NITRITE,URINE POSITIVE (NEGATIVE); OCCULT BLOOD,URINE SMALL (NEGATIVE); PH,URINE 6.5 PH (5.0-7.5); PROTEIN,URINE NEGATIVE (NEGATIVE); UROBILINOGEN,URINE 1 (NORMAL) E.U./dL (NORMAL)
[2023-07-23 09:06] LABS: CLARITY,URINE CLEAR (CLEAR); HCG UR QUAL NEGATIVE
[2023-07-23 09:38] LABS: BACTERIA,URINE Moderate /HPF (None Seen); RBC,URINE 0-5 /HPF (0-5); SQUAMOUS EPITHELIAL CELL,UR NONE SEEN (<= Few)
[2023-07-23] MEDS ORDERED: PHENAZOPYRIDINE 100 MG TABLET PO STA (09:49)
[2023-07-23] MEDS ORDERED: cephALEXin 250 MG CAPSULE PO STA (09:49)
--- NOTE | 2023-07-23 09:49 | ED Physician Documentation ---
History of Present Illness - Stated complaint Stated Complaint: - Chief complaint Chief Complaint: UTI - Additonal information Additional information: Patient 37-year-old female presenting to the emergency department with chief complaint dysuria. Reports dysuria and back pain x 1 day. Denies fever, nausea or vomiting. Reports frequent urinary tract infections. Denies any vaginal discharge or concern for sexually transmitted infection.Denies any allergy to antibiotic. 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 HEENT: None Psych: Depression, Anxiety Musculoskeletal: None Derm: None - Past Surgical History Past Surgical History: No - Present Medications Home Medications: Ambulatory Orders Medication Instructions Recorded Confirmed cephALEXin [Keflex] 500 mg PO Q6H #14 cap 05/07/23 Phenazopyridine HCl [Pyridium] 200 mg PO TID PRN #6 tablet 07/23/23 cephALEXin [Keflex] 500 mg PO Q6H #20 cap 07/23/23 - Allergies Allergies/Adverse Reactions: Allergies Allergy/AdvReac Type Severity Reaction Status Date / Time No Known Drug Allergies Allergy Verified 05/07/23 15:01 - Social History Does the pt smoke?: No Smoking Status: Never smoker Does the pt drink ETOH?: Yes Does the pt have substance abuse?: No - Immunizations Immunizations are current?: No Immunizations: Other immun not current - POLST Patient has POLST: No PD ED PE NORMAL - General General: Alert and oriented X 3 - HEENT HEENT: Atraumatic - Neck Neck: Supple, no meningeal sign - Cardiac Cardiac: RRR - Respiratory Respiratory: No respiratory distress - Abdomen Abdomen: Normal bowel sounds, Non tender - Back Back: No CVA TTP Results - Vitals Vitals: Vital Signs - 24 hr 07/23/23 08:09 Temperature 36.3 C L Heart Rate 83 Respiratory 18 Rate Blood Pressure 119/80 O2 Saturation 94 Oxygen O2 Source Room air - Labs Labs: Laboratory Tests 07/23/23 08:41 Urine Color ORANGE Urine Clarity CLEAR Urine pH 6.5 Ur Specific [place] <=1.005 Urine Protein NEGATIVE Urine Glucose (UA) NEGATIVE Urine Ketones NEGATIVE Urine Occult Blood SMALL H Urine Nitrite POSITIVE H Urine Bilirubin NEGATIVE Urine Urobilinogen 1 (NORMAL) Ur Leukocyte Esterase SMALL H Urine RBC 0-5 Urine WBC 4-5 Ur Squamous Epith Cells NONE SEEN Urine Bacteria Moderate H Ur Microscopic Review INDICATED Urine Culture Comments INDICATED Urine HCG, Qual NEGATIVE PD Medical Decision Making - ED course ED course: Patient 37-year-old female presenting to the emergency department with dysuria x 1 day. Afebrile, hematin stable on arrival to the emergency department. Patient denies concern for sexually transmitted infection, vaginal discharge or malodor. Does report history of frequent urinary tract infections. No CVA tenderness appreciated on exam. No indications pyelonephritis. Previous cultures reviewed. Notably culture 05/07/2023 positive for Klebsiella and E. coli with resistance to aminopenicillin but no other significant patterns of resistance or intermittent susceptibilities. Given this we will treat with course of Keflex initiated here in the emergency department with prescription sent to the patient's preferred pharmacy. Encouraged follow-up with primary care return to the emergency department as needed. Departure - Departure Disposition: Home, Self Care Clinical Impression: Urinary tract infection Qualifiers: Urinary tract infection type: acute cystitis Hematuria presence: without hematuria Qualified Code(s): N30.00 - Acute cystitis without hematuria Instructions: ED UTI Cystitis Female Prescriptions: cephALEXin [Keflex] 500 mg PO Q6H #20 cap Phenazopyridine HCl [Pyridium] 200 mg PO TID PRN #6 tablet PRN Reason: dysuria Comments: Thank you for allowing us to care for you today at [facility]. Your prescriptions were sent to [facility] in [place]. Your urine analysis here in the emergency department is concerning for infection. Your urine will be sent for culture and further testing and if there is concern for antibiotic resistance we will contact you directly in the next few days. In the meantime I have sent a prescription for an antibiotic as well as Pyridium and antispasmodic agent to your preferred pharmacy. Please fill these prescriptions as soon as possible as pharmacies are likely to close early today given the holiday. Please follow-up with your primary care doctor soon as possible concerning about this infection as well as your frequent urinary tract infections. If it anytime you develop any new or worsening symptoms please return to the emergency department.
== END 2023-07-23 10:01 | disposition home or self-care (01) ==
LOC: ED 07:51
DX: N30.00 Acute cystitis without hematuria (principal); B96.89 Other specified bacterial agents as the cause of diseases classified elsewhere; Z87.440 Personal history of urinary (tract) infections
CPT/HCPCS: 81001; 81025; 87077; 87086; 87181; 99283; A9270; 81003

== ENCOUNTER 2024-01-13 13:36 | Emergency (ER) | payer MEDICAID, MEDICARE ==
[2024-01-13 13:44] VITALS: BP 126/77; O2SAT 98
--- NOTE | 2024-01-13 13:48 | ED Physician Documentation ---
PD HPI FEMALE - Stated complaint Stated Complaint: - Chief complaint Chief Complaint: UTI - Additional information Additional information: 38-year-old female with history of recurrent urinary tract infections. Patient says that she feels like she has not had one for a couple years now last ER visit was 07/19/2023 she said in the period of time that she was not being seen in the emergency department for urinary tract infections she was not sexually active she is back with her old sexual partner and says every time after she has intercourse with him she gets urinary tract infections. She says that she is urinating after intercourse as well as cleaning herself and still getting UTI symptoms. 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 HEENT: None Psych: Depression, Anxiety Musculoskeletal: None Derm: None - Past Surgical History Past Surgical History: No - Present Medications Home Medications: Ambulatory Orders Medication Instructions Recorded Confirmed cephALEXin [Keflex] 500 mg PO Q6H #14 cap 05/07/23 01/13/24 Phenazopyridine HCl [Pyridium] 200 mg PO TID PRN #6 tablet 07/23/23 01/13/24 cephALEXin [Keflex] 500 mg PO Q6H #20 cap 07/23/23 01/13/24 - Allergies Allergies/Adverse Reactions: Allergies Allergy/AdvReac Type Severity Reaction Status Date / Time No Known Drug Allergies Allergy Verified 01/13/24 13:40 - Social History Does the pt smoke?: No Smoking Status: Never smoker Does the pt drink ETOH?: Yes Does the pt have substance abuse?: No - Immunizations Immunizations are current?: No Immunizations: Other immun not current - POLST Patient has POLST: No PD ED PE NORMAL - Vitals Vital signs reviewed: Yes - General General: Alert and oriented X 3, No acute distress, Well developed/nourished - Abdomen Abdomen: Normal bowel sounds, Soft, Other (suprapubic tenderness) - Back Back: No CVA TTP - Derm Derm: Normal color, Warm and dry, No rash Results - Vitals Vitals: Vital Signs - 24 hr 01/13/24 13:40 Temperature 36.5 C Heart Rate 75 Respiratory 16 Rate Blood Pressure 126/77 O2 Saturation 98 Oxygen O2 Source Room air - Labs Labs: Laboratory Tests 01/13/24 01/13/24 01/13/24 13:45 14:10 14:10 Urine Color ORANGE Urine Clarity CLEAR Urine pH 7.0 Ur Specific [place] <=1.005 Urine Protein NEGATIVE Urine Glucose (UA) 100 H Urine Ketones NEGATIVE Urine Occult Blood TRACE-INTA Urine Nitrite Urine Bilirubin NEGATIVE Urine Urobilinogen 1 (NORMAL) Ur Leukocyte Esterase Ur Microscopic Review NOT INDICATED Urine Culture Comments NOT INDICATED Urine HCG, Qual NEGATIVE C. glabrata (PCR) NEGATIVE C. krusei (PCR) NEGATIVE Xiomy species DNA NEGATIVE Chlam trachomat DNA PCR NEGATIVE N.gonorrhoeae DNA (PCR) NEGATIVE T. vaginalis (PCR) NEGATIVE TNP Bact Vaginosis (PCR) NEGATIVE PD Medical Decision Making - ED course ED course: 38-year-old female presents emergency department for concerns of dysuria and new sexual partner. Patient said that her partner has been seen in the emergency department for other things but she does not know what his complaints were whether it was related to or not. She wanted to err on side of caution and have the intramuscular Rocephin here in the emergency department and we will call her with the results of the STD testing. 500 mg intramuscular ceftriaxone given to patient. Urinalysis does not show any signs of infection at no leukocytes no nitrites negative hCG. Vaginal swab was also negative for gonorrhea, chlamydia, vaginitis. She is told if she does not have any improvement in symptoms over the next couple days to come back to the emergency department for further evaluation but at this point in time she does not have a urinary tract infection. Departure - Departure Disposition: 01 Home, Self Care Clinical Impression: Dysuria Instructions: ED Dysuria Uncertain Cause Comments: We will call you with the results of your STD testing please keep your phone on you if we need to get ahold of you to start you on additional antibiotics, come back in with any worsening symptoms. Discharge Date/Time: 01/13/24 15:18
[2024-01-13 13:50] LABS: BILIRUBIN,URINE NEGATIVE (NEGATIVE); GLUCOSE, URINE (UA) 100 mg/dL (NEGATIVE); KETONES,URINE (UA) NEGATIVE (NEGATIVE); OCCULT BLOOD,URINE TRACE-INTA (NEGATIVE); PROTEIN,URINE NEGATIVE (NEGATIVE); UROBILINOGEN,URINE 1 (NORMAL) E.U./dL (NORMAL)
[2024-01-13 13:57] LABS: CLARITY,URINE CLEAR (CLEAR)
[2024-01-13 14:03] LABS: HCG UR QUAL NEGATIVE
[2024-01-13] MEDS: cefTRIAXone 500 MG VIAL IM STA (15:04)
[2024-01-13] MEDS: LIDOCAINE 1% 2 ML VIAL MC ONE (15:04)
[2024-01-13 16:54] LABS: CHLAMYDIA TRACHOMATIS DNA NEGATIVE (NEGATIVE); NEISSERIA GONORRHOEAE DNA NEGATIVE (NEGATIVE)
[2024-01-13 16:55] LABS: BACTERIAL VAGINOSIS DNA NEGATIVE (NEGATIVE); CANDIDA GLABRATA DNA NEGATIVE (NEGATIVE); CANDIDA GROUP DNA NEGATIVE (NEGATIVE); CANDIDA KRUSEI DNA NEGATIVE (NEGATIVE); TRICHOMONAS VAGINALIS DNA NEGATIVE (NEGATIVE)
== END 2024-01-13 15:18 | disposition home or self-care (01) ==
LOC: ED 13:36
DX: R30.0 Dysuria (principal)
CPT/HCPCS: 81001; 81003; 81025; 81514; 87086; 87491; 87591; 87661; 96372; 99283